=== PATIENT | male | born 1965 | race Caucasian/White ===

== ENCOUNTER 2016-07-22 00:18 | Inpatient (IN) | payer MEDICAID ==
[2016-07-22] VITALS (14 sets, daily range): BP systolic 121–165; BP diastolic 68–80; PULSE 74–96; RESP 12–20; Ht 167.6 cm; Wt 107.0 kg
[~2016-07-22] VITALS: Ht 167.6 cm; Wt 107.0 kg
--- NOTE | 2016-07-22 00:36 | ERA ---
ER Documentation Chief Complaint Date/Time DATE: 07/22/16 TIME: 00:36 Chief Complaint Chest pain HPI The patient is a 51-year-old male, presenting to the ER because of sternal chest pain intermittently for the last 5 days, worse tonight, 8/10, nonradiating , no aggravating or relieving factor. He denies similar symptoms previously, denies neck pain, chest pain with exertion or vomiting or diaphoresis, denies dyspnea, abdominal pain, vomiting, dysuria, diarrhea. He does not smoke, drinks socially, denies illicit drug. Had history of diabetes, however he does not take metformin medication for more than a year Past medical history: Diabetes mellitus Past surgical history: None ROS All systems reviewed and are negative except as per history of present illness. Allergies Allergies: Coded Allergies: No Known Allergy (Unverified , 07/22/16) Physical Exam Vitals Vital Signs Date Time Temp Pulse Resp B/P Pulse Ox O2 Delivery O2 Flow Rate FiO2 07/22/16 00:35 98.6 92 20 190/123 99 Room Air 07/22/16 00:31 98.6 86 20 205/122 99 Physical Exam Const: No acute distress. Head: Atraumatic. Eyes: Normal Conjunctiva. ENT: Normal External Ears, Nose and Mouth. Neck: Full range of motion. No meningismus. Resp: Clear to auscultation bilaterally. Cardio: Regular rate and rhythm, no murmurs. Abd: Soft, non distended, normal bowel sounds, non tender. Skin: No petechiae or rashes. Back: No midline or flank tenderness. Ext: No cyanosis, or edema. Neur: Awake and alert. No focal deficit Psych: Normal Mood and Affect. Result Diagram: 07/22/16 0050 07/22/16 0050 Results 24 hrs Laboratory Tests Test 07/22/16 00:50 07/22/16 01:17 White Blood Count 8.210^3/ul Red Blood Count 5.1210^6/ul Hemoglobin 15.9g/dl Hematocrit 45.5% Mean Corpuscular Volume 88.9fl Mean Corpuscular Hemoglobin 31.1pg Mean Corpuscular Hemoglobin Concent 34.9g/dl Red Cell Distribution Width 12.5% Platelet Count 23092^3/UL Mean Platelet Volume 9.7fl Neutrophils % 46.3% Lymphocytes % 45.5% Monocytes % 6.3% Eosinophils % 1.0% Basophils % 0.5% Nucleated Red Blood Cells % 0.0/100WBC Neutrophils # 3.810^3/ul Lymphocytes # 3.810^3/ul Monocytes # 0.510^3/ul Eosinophils # 0.110^3/ul Basophils # 0.010^3/ul Nucleated Red Blood Cells # 0.010^3/ul Prothrombin Time 11.5Sec Prothrombin Time Ratio 0.9 INR International Normalized Ratio 0.84 Activated Partial Thromboplast Time 28.8Sec Sodium Level 140mmol/L Potassium Level 4.1mmol/L Chloride Level 100mmol/L Carbon Dioxide Level 26mmol/L Anion Gap 18 Blood Urea Nitrogen 10mg/dl Creatinine 0.59mg/dl Glucose Level 302mg/dl Calcium Level 9.2mg/dl Total Bilirubin 0.3mg/dl Direct Bilirubin 0.00mg/dl Indirect Bilirubin 0.3mg/dl Aspartate Amino Transf (AST/SGOT) 45IU/L Alanine Aminotransferase (ALT/SGPT) 54IU/L Alkaline Phosphatase 161IU/L Creatine Kinase 63IU/L Creatine Kinase Index 0.9 Creatinine Kinase MB (Mass) 0.59ng/ml Troponin I 0.050ng/ml Total Protein 7.6g/dl Albumin 4.4g/dl Globulin 3.20g/dl Albumin/Globulin Ratio 1.37 Lipase 219U/L Bedside Glucose 297mg/dL Current Medications Medications (Trade) Dose Ordered Sig/Margie Route PRN Reason Start Time Stop Time Status Last Admin Dose Admin Labetalol HCl (Labetalol) 20 mg ONCE ONCE IV 07/22/16 01:00 07/22/16 01:01 DC 07/22/16 00:58 Aspirin (Aspirin) 325 mg ONCE ONCE PO 07/22/16 02:30 07/22/16 02:31 DC 07/22/16 02:27 Nitroglycerin 1 inch 1 inch ONCE ONCE TD 07/22/16 02:30 07/22/16 02:31 DC 07/22/16 02:28 Sodium Chloride (NS) 500 ml @ 500 mls/hr Q1H ONCE IV 07/22/16 02:30 07/22/16 03:29 07/22/16 02:27 Procedures/[facility] EKG: Read by emergency physician Rate/Rhythm: Normal Sinus Rhythm 82 beats/min QRS, ST, T-waves: No ST elevation, no T inversion Impression: Normal EKG [place] [id number] Radiology Main Line: [phone] DIAGNOSTIC IMAGING REPORT Patient: FREDDY ROMERO : 1965 Age: 51 Sex: M MR #: [id number] DOS: 07/22/16 0042 Ordering MD: TUCKER COREAS MD Location: E/R Room/Bed: PROCEDURE: XR Chest. CLINICAL INDICATION: Chest pain. TECHNIQUE: Single frontal chest x-ray. COMPARISON: None. FINDINGS: The cardiomediastinal silhouette is unremarkable. Small focus of patchy left basilar atelectasis versus infiltrate. There is no pleural effusion. There is no pneumothorax. The osseous structures are unremarkable. IMPRESSION: Left basilar atelectasis versus infiltrate. RPTAT: [facility]K .Tucker Flores MD, MD Date Time Electronically viewed and signed by .Tucker Flores MD, MD on 07/22/2016 01:49 .K/ CC: TUCKER COREAS MD MEDICAL MAKING DECISION: The patient is a 51-year-old male with multiple cardiac risk factors, presenting with acute chest pain that is concerning for ACS, acute diabetic hyperglycemia, acute excellent hypertension. He was treated with labetalol 20 mg IV for acute accelerated hypertension, aspirin 325 mg p.o., 1 inch of nitroglycerin for acute chest pain and 500 mm normal saline for acute diabetic hyperglycemia with good response. The differential diagnoses considered include but are not limited to acute coronary syndrome, acute myocardial infarction, pericarditis, pulmonary embolism, aortic dissection , pneumonia, pleural effusion, pneumothorax, GERD, chest wall pain. Departure Diagnosis: Primary Impression: Acute chest pain Additional Impressions: Accelerated hypertension Diabetes mellitus with hyperglycemia Condition: Stable Comments I discussed the findings with the patient. I discussed the patient with the on- call hospitalist Dr. Ocampo who was made aware of the lab, the treatment, the patient condition. The patient is admitted to telemetry TUCKER COREAS MD Jul 22, 2016 00:36
[2016-07-22] MEDS ORDERED: LABETALOL HCL 20MG INJ IV ONE (01:00)
[2016-07-22 01:25] LABS: ADD SCAN DIFF NO
[2016-07-22 01:30] LABS: BASOPHILS % 0.5 % (0.0-2.0); EOSINOPHILS # 0.1 10^3/ul (0.0-0.5); HEMATOCRIT 45.5 % (42.0-52.0); HEMOGLOBIN 15.9 g/dl (14.0-18.0); LYMPHOCYTES # 3.8 10^3/ul (0.8-2.9); LYMPHOCYTES % 45.5 % (15.0-51.0); MEAN CORPUSCULAR HEMOGLOBIN 31.1 pg (29.0-33.0); MEAN CORPUSCULAR HGB CONC 34.9 g/dl (32.0-37.0); MEAN CORPUSCULAR VOLUME 88.9 fl (82.0-101.0); MEAN PLATELET VOLUME 9.7 fl (7.4-10.4); MONOCYTE # 0.5 10^3/ul (0.3-0.9); MONOCYTES % 6.3 % (0.0-11.0); NEUTROPHIL # 3.8 10^3/ul (1.6-7.5); NEUTROPHILS % 46.3 % (39.0-77.0); PLATELET COUNT 192 10^3/UL (140-415); RED BLOOD COUNT 5.12 10^6/ul (4.70-6.10); RED CELL DISTRIBUTION WIDTH 12.5 % (11.5-14.5); WHITE BLOOD COUNT 8.2 10^3/ul (4.8-10.8)
[2016-07-22 01:44] LABS: ALBUMIN 4.4 g/dl (3.3-4.9)
[2016-07-22 01:45] LABS: POTASSIUM 4.1 mmol/L (3.5-5.1)
[2016-07-22 01:46] LABS: INR 0.84; PROTIME 11.5 Sec (12.2-14.2); PT RATIO 0.9
[2016-07-22 01:47] LABS: ALBUMIN/GLOBULIN RATIO 1.37; BILIRUBIN,INDIRECT 0.3 mg/dl (0-1.1); BILIRUBIN,TOTAL 0.3 mg/dl (0.2-1.3); CREATININE 0.59 mg/dl (0.61-1.24); PARTIAL THROMBOPLASTIN TIME 28.8 Sec (25.0-35.0); TOTAL PROTEIN 7.6 g/dl (6.1-8.1)
[2016-07-22 01:48] LABS: CALCIUM 9.2 mg/dl (8.4-10.2)
--- NOTE | 2016-07-22 01:50 | RADRPT ---
PROCEDURE: XR Chest. CLINICAL INDICATION: Chest pain. TECHNIQUE: Single frontal chest x-ray. COMPARISON: None. FINDINGS: The cardiomediastinal silhouette is unremarkable. Small focus of patchy left basilar atelectasis [place] infiltrate. There is no pleural effusion. There is no pneumothorax. The osseous structures ar e unremarkable. IMPRESSION: Left basilar atelectasis versus infiltrate. RPTAT: [facility]VK .Tucker Flores MD, MD Date Time Electronically viewed and signed by .Tucker Flores MD, on 07/22/2016 01:49 .K/
[2016-07-22 01:58] LABS: CK-MB 0.59 ng/ml (0.0-2.4)
[2016-07-22 01:59] LABS: TROPONIN-I 0.056 ng/ml (0.00-0.12)
[2016-07-22 02:01] LABS: TROPONIN-I 0.05 ng/ml (0.00-0.12)
[2016-07-22] MEDS ORDERED: ASPIRIN 325 MG TAB PO ONE (02:30)
[2016-07-22] MEDS ORDERED: NITROGLYCERIN 2% 1 GM OINT PKT TD ONE (02:30)
[2016-07-22] MEDS ORDERED: SOD CHLORIDE 0.9% 500 ML IV ONE (02:30)
--- NOTE | 2016-07-22 03:52 | HP ---
Date/Time of Note Date/Time of Note DATE: 07/22/16 TIME: 03:52 Assessment/Plan VTE Prophylaxis VTE Prophylaxis Intervention: other (Lovenox) Lines/Catheters IV Catheter Type (from Nrsg): Saline Lock Assessment/Plan Assessment/Plan 1) Acute chest pain - Admit to Telemetry - Serial Enzymes - EKG in AM - AM Labs: Magnesium 2) Accelerated hypertension - AM Labs: CHD Profile 3) Diabetes mellitus Type 2, uncontrolled with hyperglycemia - AM Labs: HgbA1c - AccuChek Ac and HS with Regular Insulin - Mild Sliding Scale 4) Obesity, BMI = 39 - AM Labs: TSH HPI/ROS Admit Date/Time Admit Date/Time 07/22/16 0305 Hx of Present Illness Chief Complaint Chest pain HPI The patient is a 51-year-old male, presenting to the ER because of sternal chest pain intermittently for the last 5 days, worse tonight, 8/10, nonradiating , no aggravating or relieving factor. He denies similar symptoms previously, denies neck pain, chest pain with exertion or vomiting or diaphoresis, denies dyspnea, abdominal pain, vomiting, dysuria, diarrhea. He does not smoke, drinks socially, denies illicit drug. Had history of diabetes, however he does not take metformin medication for more than a year ER Course per ER Physician: The patient is a 51-year-old male with multiple cardiac risk factors, presenting with acute chest pain that is concerning for ACS, acute diabetic hyperglycemia, acute excellent hypertension. He was treated with labetalol 20 mg IV for acute accelerated hypertension, aspirin 325 mg p.o., 1 inch of nitroglycerin for acute chest pain and 500 mm normal saline for acute diabetic hyperglycemia with good response. The differential diagnoses considered include but are not limited to acute coronary syndrome, acute myocardial infarction, pericarditis, pulmonary embolism, aortic dissection , pneumonia, pleural effusion, pneumothorax, GERD, chest wall pain. ROS General: Admits: Denies: Fever, Chills, Poor Appetite, Abnormal Weight Loss, Generalized Body Aches Eyes: Admits: Denies: Blurry Vision, Double Vision, Yellow Eyes HENT: Admits: Denies: Sinus Pain/Pressure, Ear Pain/Pressure, Runny/Stuffy Nose, Sore Throat Cardiovascular: Admits: Chest Pain Denies: Palpitations, Leg Swelling Pulmonary: Admits: Denies: Cough, Wheeze, Shortness of Breath Gastrointestinal: Admits: Denies: Abdominal Pain, Nausea, Vomiting, Diarrhea, Blood in Stool, Black-Colored Stool Urogenital: Admits: Denies: Burning with Urination, Urinary Frequency, Blood in Urine, Nocturia Musculoskeletal: Admits: Denies: Joint Pain, Joint Swelling, Muscle Pain Neurological: Admits: Denies: Headache, Dizziness, Numbness, Tingling, Shooting Pains Integumentary: Admits: Denies: Rash, Itch, Yellow Skin Endocrine: Admits: Denies: Excessive Thirst, Excessive Hunger, Intolerant to Cold , Intolerant to Heat Psychiatric: Admits: Denies: Anxiety, Depression PMH/Family/Social Past Medical History Medical History: diabetes Past Surgical History Past Surgical Hx: no surgical history Social History Alcohol Use: occasionally Smoking Status: Never smoker Drug Use: none Exam/Review of Systems Vital Signs Vitals Vital Signs Date Time Temp Pulse Resp B/P Pulse Ox O2 Delivery O2 Flow Rate FiO2 07/22/16 00:35 98.6 92 20 190/123 99 Room Air Exam Exam General: Obese male, alert and oriented, in no acute distress, resting comfortably Eyes: Sclera White, EOMI HENT: Normocephalic/Atraumatic, External Ears/Nose Normal, Moist Mucus Membranes Neck: Supple, Trachea Midline Cardiovascular: Normal Rate, Normal Rhythm, Normal S1 and S2, No Murmur, No Extra Sounds Pulmonary: Clear to Auscultation Bilaterally, Normal Respiratory Effort, No Rales, Rhonchi or Wheezes Gastrointestinal: Normoactive Bowel Sounds, Soft, Non-Tender/Non-Distended Urogenital: Deferred Musculoskeletal: Normal Muscle Bulk and Tone Neurological: CN II - XII Grossly Intact, Non-Focal, Speech Normal Integumentary: Normal Moisture and Temperature, Good Turgor, No Jaundice, No Rash Lymphatic: No Cervical Lymphadenopathy Psychiatric: Appropriate Mood and Affect, Good Eye Contact Labs Result Diagram: 07/22/16 0050 07/22/16 0050 Procedures Procedures Laboratory Tests Test 07/22/16 00:50 07/22/16 01:17 White Blood Count 8.210^3/ul Red Blood Count 5.1210^6/ul Hemoglobin 15.9g/dl Hematocrit 45.5% Mean Corpuscular Volume 88.9fl Mean Corpuscular Hemoglobin 31.1pg Mean Corpuscular Hemoglobin Concent 34.9g/dl Red Cell Distribution Width 12.5% Platelet Count 77015^3/UL Mean Platelet Volume 9.7fl Neutrophils % 46.3% Lymphocytes % 45.5% Monocytes % 6.3% Eosinophils % 1.0% Basophils % 0.5% Nucleated Red Blood Cells % 0.0/100WBC Neutrophils # 3.810^3/ul Lymphocytes # 3.810^3/ul Monocytes # 0.510^3/ul Eosinophils # 0.110^3/ul Basophils # 0.010^3/ul Nucleated Red Blood Cells # 0.010^3/ul Prothrombin Time 11.5Sec Prothrombin Time Ratio 0.9 INR International Normalized Ratio 0.84 Activated Partial Thromboplast Time 28.8Sec Sodium Level 140mmol/L Potassium Level 4.1mmol/L Chloride Level 100mmol/L Carbon Dioxide Level 26mmol/L Anion Gap 18 Blood Urea Nitrogen 10mg/dl Creatinine 0.59mg/dl Glucose Level 302mg/dl Calcium Level 9.2mg/dl Total Bilirubin 0.3mg/dl Direct Bilirubin 0.00mg/dl Indirect Bilirubin 0.3mg/dl Aspartate Amino Transf (AST/SGOT) 45IU/L Alanine Aminotransferase (ALT/SGPT) 54IU/L Alkaline Phosphatase 161IU/L Creatine Kinase 63IU/L Creatine Kinase Index 0.9 Creatinine Kinase MB (Mass) 0.59ng/ml Troponin I 0.050ng/ml Total Protein 7.6g/dl Albumin 4.4g/dl Globulin 3.20g/dl Albumin/Globulin Ratio 1.37 Lipase 219U/L Bedside Glucose 297mg/dL Current Medications Medications (Trade) Dose Ordered Sig/Margie Route PRN Reason Start Time Stop Time Status Last Admin Dose Admin Labetalol HCl (Labetalol) 20 mg ONCE ONCE IV 07/22/16 01:00 07/22/16 01:01 DC 07/22/16 00:58 Aspirin (Aspirin) 325 mg ONCE ONCE PO 07/22/16 02:30 07/22/16 02:31 DC 07/22/16 02:27 Nitroglycerin 1 inch 1 inch ONCE ONCE TD 07/22/16 02:30 07/22/16 02:31 DC 07/22/16 02:28 Sodium Chloride (NS) 500 ml @ 500 mls/hr Q1H ONCE IV 07/22/16 02:30 07/22/16 03:29 07/22/16 02:27 EKG: Read by emergency physician Rate/Rhythm: Normal Sinus Rhythm 82 beats/min QRS, ST, T-waves No ST elevation, no T inversion Impression: Normal EKG RADIOLOGY: PROCEDURE: XR Chest. CLINICAL INDICATION: Chest pain. TECHNIQUE: Single frontal chest x-ray. COMPARISON: None. FINDINGS: The cardiomediastinal silhouette is unremarkable. Small focus of patchy left basilar atelectasis versus infiltrate. There is no pleural effusion. There is no pneumothorax. The osseous structures are unremarkable. IMPRESSION: Left basilar atelectasis versus infiltrate. LJ DOMINGUEZ DO Jul 22, 2016 03:52
[2016-07-22] MEDS ORDERED: NITROGLYCERIN (SL) 0.4 MG TAB SL PRN (04:00)
[2016-07-22] MEDS ORDERED: INSULIN REGULAR, HUMAN 100 UNIT/1 ML 3ML VIAL SC ONE (04:00)
[2016-07-22] MEDS ORDERED: METOCLOPRAMIDE 10 MG INJ IV PRN (04:00)
[2016-07-22] MEDS ORDERED: NACL 0.9% 3 ML SYG IV SCH (04:00)
[2016-07-22] MEDS ORDERED: Insulin NOVOLOG SS MILD Algorithm (NPO/TPN/ENTERAL FEEDS) SC ONE (04:40)
[2016-07-22 05:50] LABS: MAGNESIUM 1.6 mg/dl (1.7-2.5)
[2016-07-22 06:21] LABS: THYROID STIMULATING HORMONE 2.33 MIU/L (0.465-4.680)
[2016-07-22 06:59] LABS: CK-MB 0.76 ng/ml (0.0-2.4)
[2016-07-22 07:00] LABS: TROPONIN-I 0.127 ng/ml (0.00-0.12)
[2016-07-22] MEDS ORDERED: ENOXAPARIN 40 MG/0.4 ML SYG SC SCH (09:00)
[2016-07-22] MEDS: FAMOTIDINE 20 MG TAB PO SCH ×2 (09:00→21:43)
[2016-07-22] MEDS ORDERED: hydrALAzine 20 MG INJ IV PRN (10:00)
[2016-07-22] MEDS ORDERED: MIDAZOLAM 1 MG/ML 2 ML INJ ONE (10:04)
[2016-07-22] MEDS ORDERED: FENTAnyl 50 MCG/ML VIAL ONE (10:04)
[2016-07-22] MEDS ORDERED: VERAPAMIL 5 MG INJ ONE (10:04)
[2016-07-22] MEDS ORDERED: LIDOCAINE 1% (MDV) 20 ML INJ ONE (10:04)
[2016-07-22] MEDS ORDERED: NITROGLYCERIN (IC) 100 MCG/ML INJ ONE (10:04)
[2016-07-22] MEDS ORDERED: HEPARIN 1000 UNITS/ML 10 ML INJ ONE (10:04)
[2016-07-22 10:26] LABS: TROPONIN-I 0.113 ng/ml (0.00-0.12)
[2016-07-22 10:30] LABS: CK-MB 0.84 ng/ml (0.0-2.4)
--- NOTE | 2016-07-22 10:36 | CONS ---
Date/Time of Note Date/Time of Note DATE: 07/22/16 TIME: 10:33 Assessment/Plan Assessment/Plan Additional Assessment/Plan Chest pain and elevated troponin concerning for non-ST elevation ID Diabetes Hypertension Dyslipidemia Medication noncompliance -Patient with symptoms of worsening exertional chest pain, multiple risk factors , abnormal ECG and elevated troponin. Would proceed with cardiac catheterization. Continue aspirin and statin therapy, beta-andrew as heart rate and blood pressure permits. Check echocardiogram. Consultation Date/Type/Reason Admit Date/Time 07/22/16 0305 Type of Consultation: cv Reason for Consultation Chest pain and elevated troponin Hx of Present Illness This is a 51-year-old male with past medical history of diabetes, hypertension, dyslipidemia noncompliant with medications who presents with off-and-on chest pain over the past month, worsening over the past few days. Symptoms are worse with exertion and improved with rest. There is sometimes associated shortness of breath. He also has been having elevated blood pressures have not been well controlled. He denies fevers and chills, dizziness or lightheadedness. He feels better since admission and receiving medications in the emergency room. 12 point review of systems was performed with all pertinent positives and negatives mentioned above and all else is negative Past Medical History Medical History: diabetes, high cholesterol, hypertension Past Surgical History Past Surgical Hx: no surgical history Family History Significant Family History: no pertinent family hx Social History Alcohol Use: occasionally Smoking Status: Never smoker Drug Use: none Other Social History Works in [employer] Exam/Review of Systems Vital Signs Vitals Vital Signs Date Time Temp Pulse Resp B/P Pulse Ox O2 Delivery O2 Flow Rate FiO2 07/22/16 09:09 77 18 125/75 99 Nasal Cannula 2.0 07/22/16 05:00 98.6 Exam No apparent distress Constitutional: alert, obese, oriented Head: normocephalic Neck: supple Respiratory: clear to auscultation, normal air movement Cardiovascular: other (S1-S2 heard, no murmurs appreciate), regular rate and rhythm Gastrointestinal: bowel sounds, non-tender, other (No guarding), soft Extremities: other (No edema or cyanosis) Results Result Diagram: 07/22/16 0050 07/22/16 0050 Results 24 hrs Laboratory Tests Test 07/22/16 00:50 07/22/16 01:17 07/22/16 04:50 07/22/16 05:10 White Blood Count 8.2 Red Blood Count 5.12 Hemoglobin 15.9 Hematocrit 45.5 Mean Corpuscular Volume 88.9 Mean Corpuscular Hemoglobin 31.1 Mean Corpuscular Hemoglobin Concent 34.9 Red Cell Distribution Width 12.5 Platelet Count 192 Mean Platelet Volume 9.7 Neutrophils % 46.3 Lymphocytes % 45.5 Monocytes % 6.3 Eosinophils % 1.0 Basophils % 0.5 Nucleated Red Blood Cells % 0.0 Neutrophils # 3.8 Lymphocytes # 3.8 H Monocytes # 0.5 Eosinophils # 0.1 Basophils # 0.0 Nucleated Red Blood Cells # 0.0 Prothrombin Time 11.5 L Prothrombin Time Ratio 0.9 INR International Normalized Ratio 0.84 Activated Partial Thromboplast Time 28.8 Sodium Level 140 Potassium Level 4.1 Chloride Level 100 Carbon Dioxide Level 26 Anion Gap 18 H Blood Urea Nitrogen 10 Creatinine 0.59 L Glucose Level 302 H Calcium Level 9.2 Total Bilirubin 0.3 Direct Bilirubin 0.00 Indirect Bilirubin 0.3 Aspartate Amino Transf (AST/SGOT) 45 Alanine Aminotransferase (ALT/SGPT) 54 Alkaline Phosphatase 161 H Creatine Kinase 63 54 Creatine Kinase Index 0.9 1.4 Creatinine Kinase MB (Mass) 0.59 0.76 Troponin I 0.050 0.127 *H Total Protein 7.6 Albumin 4.4 Globulin 3.20 Albumin/Globulin Ratio 1.37 Lipase 219 Bedside Glucose 297 H 291 H Hemoglobin A1c 10.3 H Magnesium Level 1.6 L Thyroid Stimulating Hormone (TSH) 2.330 Test 07/22/16 09:35 Creatine Kinase 51 Creatine Kinase Index 1.6 Creatinine Kinase MB (Mass) 0.84 Troponin I 0.113 Medications Medications Current Medications Metoclopramide HCl (Reglan) 10 mg Q6H PRN IV NAUSEA AND/OR VOMITING; Start at 04:00 Nitroglycerin (Nitroglycerin (Sl Tab) 0.4 Mg) 1 tab Q5M PRN SL CHEST PAIN; Start 07/22/16 at 04:00 Acetaminophen (Tylenol Tab) 650 mg Q6H PRN PO PAIN LEVEL 1-3 OR FEVER; Start at 04:00 Morphine Sulfate (morphine) 2 mg Q4H PRN IV PAIN LEVEL 7-10; Start 07/22/16 at 04:00 Famotidine (Pepcid) 20 mg Q12 PO Last administered on 07/22/16 09:00; Admin Dose 20 MG; Start 07/22/16 at 09:00 Enoxaparin Sodium (Lovenox) 40 mg DAILY SC Last administered on 07/22/16 09:00 ; Admin Dose 40 MG; Start 07/22/16 at 09:00 Insulin Glargine (Lantus) 22 unit DAILY@08 SC ; Start 07/22/16 at 09:30; Status UNV Miscellaneous Information (* Miscellaneous Pharmacy Order) HYPOGLYCEMIA PROTOCOL w... ONCE ONCE XX ; Start 07/22/16 at 09:30; Stop 07/22/16 at 09:31; Status UNV Miscellaneous Information (* Miscellaneous Pharmacy Order) Discontinue Glyburide , Glipizide,... ONCE ONCE XX ; Start 07/22/16 at 09:30; Stop 07/22/16 at 09:31 ; Status UNV Miscellaneous Information (* Miscellaneous Pharmacy Order) Discontinue all previ... ONCE ONCE XX ; Start 07/22/16 at 09:30; Stop 07/22/16 at 09:31; Status UNV Aspirin (Halfprin) 81 mg DAILY PO ; Start 07/23/16 at 09:00; Status UNV Metoprolol Tartrate (Lopressor) 25 mg BID PO ; Start 07/22/16 at 21:00; Status UNV Hydralazine HCl (Apresoline) 10 mg Q6H PRN IV SBP>160; Start 07/22/16 at 10:00 ; Status UNV Procedures Procedures Sinus rhythm, inferior T-wave abnormalities, normal QRS duration Tucker Fuller DO Jul 22, 2016 10:36
[2016-07-22] MEDS ORDERED: GLUCOSE GEL 15 GRAM TUBE BUCCAL PRN (11:00)
[2016-07-22] MEDS ORDERED: GLUCOSE GEL 15 GRAM TUBE PO PRN ×2 (11:00)
[2016-07-22] MEDS ORDERED: DEXTROSE 50% 50 ML SYRINGE IV PRN ×2 (11:00)
[2016-07-22] MEDS ORDERED: GLUCAGON 1 MG INJ IM PRN (11:00)
[2016-07-22] MEDS ORDERED: SOD CHLORIDE 0.9% 1,000 ML IV SCH (11:29)
[2016-07-22] MEDS ORDERED: ONDANSETRON 4 MG INJ IV PRN (11:30)
[2016-07-22] MEDS ORDERED: AL HYDROX/MG HYDROX/SIMETH 30 ML CUP PO PRN (11:30)
--- NOTE | 2016-07-22 12:03 | CARRPT ---
DATE OF PROCEDURE: 07/22/2016 PROCEDURES: 1. Left heart catheterization. 2. Right and left coronary angiogram. 3. Interpretation and supervision of right and left coronary angiogram. 4. Left ventricular pressure measurements. 5. Right radial artery approach. PATIENT HISTORY: This is a 51-year-old male who presents with elevated troponins and chest pain and abnormal ECG. FINDINGS: HEMODYNAMICS: LV pressure was 155/negative, total EDP of 20. Aortic was 142/88. CORONARY FINDINGS: 1. RCA is a medium-caliber vessel and is dominant. There is a proximal 100% occlusion. The distal vessel is seen via collaterals from the circumflex and LAD with at least a medium-caliber vessel with a patent PDA and PLB. 2. Left main is a large-caliber vessel with no significant disease. 3. Circumflex is a medium caliber vessel. There is a distal 30% stenosis. 4. LAD is a medium-caliber vessel. There is a proximal to the first high diagonal 80 to 90% eccentric stenosis into a bend. In the mid vessel, there is a 30% stenosis. DESCRIPTION OF PROCEDURE: The patient was brought to the senior cytogenetics laboratory director after informed consent. The patient was prepped and draped as per protocol. Right radial access was obtained using ultrasound guidance. A 5/6-Martiniquais sheath was placed in the right radial artery. A 5-Martiniquais JR4 catheter was used to engage the RCA. Angiogram was performed. This demonstrated a FIRE TOWER KEEPER. We next entered the left ventricle. Pressure measurements were obtained as well as pullback. We next used a 5-Martiniquais JL3.5 diagnostic catheter to engage the left main. Angiogram was performed. The patient with severe proximal LAD disease as well FIRE TOWER KEEPER of the RCA. Given the patient's history of diabetes, a FIRE TOWER KEEPER of the RCA as well as proximal LAD disease, the patient would be best served with surgical revascularization. All catheters and wires were removed. There were no immediate complications. DIAGNOSES: 1. Non-ST elevation myocardial infarction. 2. Obstructive coronary artery disease. COMPLICATIONS: None. BLOOD LOSS: Minimal. RECOMMENDATIONS: CT surgery for evaluation for CABG. Dictated By: BEVERLY OCAMPO/YUDY Conf#: [id number] DID#: [id number] [facility]ES HOSPITALLeonel
--- NOTE | 2016-07-22 12:52 | RADRPT ---
Echocardiogram Report Patient Name: FREDDY ROMERO Gender: Male Date: 1965 Study Date: 22-Jul-2016 Transit Specialist: Moses Griffiths RDCS Location: 6 Ref. Physician: NADGEE SPENCER Quality: Good Procedures: Transthoracic echocardiogram with complete 2D, M-Mode, and doppler examination. Indications: Chest Pain. 2D/M Mode Doppler Measurement Value Normal Ranges Measurement Value Normal Ranges LVIDd 2D 5.0 3.5 - 5.6 cm AV Peak Ivan 1.1 m/sec LVIDs 2D 3.3 2.1 - 4.1 cm AV Peak PG 4.9 mmHg LVPWd 2D 1.2 0.6 - 1.1 cm LVOT Peak Ivan 1.0 m/sec IVSd 2D 1.1 0.6 - 1.1 cm LVOT Peak PG 4.1 mmHg AoR Diam 2D 2.8 2.0 - 3.7 cm MV E Peak Ivan 0.6 m/sec EDV 2D 120.5 cm3 MV A Peak Ivan 1.0 m/sec ESV 2D 35.9 cm3 MV E/A 0.6 LA Dimen 2D 4.3 2.3 - 4.0 cm MV Decel Time 140 msec MV Decel [place] 5 MV E/A 0.6 Findings Left Ventricle: Normal left ventricular systolic function. Normal left ventricular cavity size. Mild concentric left ventricular hypertrophy. Ejection fraction is visually estimated at 55 %. Tissue Doppler/Mitral Doppler indices are consistent with impaired relaxation (Stage I diastolic dysfunction). These segments of the LV are hypokinetic inferior mid segment and inferior base segment. Right Ventricle: Normal right ventricular size. Normal right ventricular systolic function. Left Atrium: There is mild enlargement of left atrium. Right Atrium: The right atrium is normal in size. Mitral Valve: Mitral valve leaflets appear mildly thickened. Mild mitral annular calcification. Trace mitral regurgitation. Aortic Valve: Normal appearance of the aortic valve. No significant aortic stenosis or insufficiency. Tricuspid Valve: Normal appearance and function of the tricuspid valve with trace physiologic regurgitation. Pulmonic Valve: Normal pulmonic valve appearance. Pericardium: Normal pericardium with no significant pericardial effusion. Aorta: Normal aortic root. IVC: Normal size and normal respiratory collapse consistent with normal right atrial pressure. Conclusions 1.Normal left ventricular systolic function. Normal left ventricular cavity size. Mild concentric left ventricular hypertrophy. Ejection fraction is visually estimated at 55 %. Tissue Doppler/Mitral Doppler indices are consistent with impaired relaxation (Stage I diastolic dysfunction). These segments of the LV are hypokinetic inferior mid segment and inferior base segment. 2.Normal right ventricular size. Normal right ventricular systolic function. 3.There is mild enlargement of left atrium. 4.The right atrium is normal in size. 5.No significant valvular stenosis or regurgitation seen. 6.Normal pericardium with no significant pericardial effusion. Electronically Signed By: Tucker Fuller 22-Jul-2016 12:51:07 -0700 Patient Name: FREDDY ROMERO Study Date: 22-Jul-2016 [id number]
--- NOTE | 2016-07-22 12:53 | RADRPT ---
PROCEDURE: US Carotids. CLINICAL INDICATION: bruit , pre-cabg TECHNIQUE: Multiple sonographic of the carotid bifurcation region and vertebral arteries were obta ined utilizing floyd scale, duplex and color-flow imaging. The images were reviewed on a PACS worksta tion. COMPARISON: No prior studies are available for comparison. FINDINGS: Evaluation of the right carotid bifurcation region reveals no significant calcific atherosclerotic d isease. Evaluation of the left carotid bifurcation region reveals no significant calcific atherosclerotic di sease. There is antegrade flow within the vertebral arteries bilaterally. RIGHT CAROTID MEASUREMENTS: Common Carotid Upvqnh78.4 (cm/sec) Internal Carotid Artery - .4 (cm/sec) Internal Carotid Artery - mid58.1 (cm/sec) Internal Carotid Artery - ouifls75.8 (cm/sec) Internal Carotid/Common Carotid0.75 LEFT CAROTID MEASUREMENTS: Common Carotid Pryjqa02.6 (cm/sec) Internal Carotid Artery - kgdmerqi14 (cm/sec) Internal Carotid Artery - mid88.5 (cm/sec) Internal Carotid Artery - aakwly08.2 (cm/sec) Internal Carotid/Common Carotid1.06 RPTAT: AA IMPRESSION: No evidence for hemodynamically significant stenosis in the bilateral internal carotid arteries - va lidated velocity measurements with angiographic measurements, velocity criteria are extrapolated fro m diameter data as defined by the Society of Radiologists in Ultrasound Consensus Conference Radiolo gy 2003; 229;340-346. This study does indirectly reference the measurement of the distal ICA diamet er as the denominator for stenosis measurement. Normal antegrade flow in the vertebral arteries bilaterally. .Amado Silver MD, MD Date Time Electronically viewed and signed by .Amado Silver MD, on 07/22/2016 12:53 .S/
[2016-07-22] MEDS: INSULIN ASPART [NOVOLOG] 3 ML PEN SC SCH ×5 (12:56→21:52)
[2016-07-22] MEDS: INSULIN GLARGINE [LANtus] 3 ML PEN SC SCH (13:16)
[2016-07-22 16:31] LABS: TROPONIN-I 0.107 ng/ml (0.00-0.12)
[2016-07-22 16:33] LABS: CK-MB 0.62 ng/ml (0.0-2.4)
[2016-07-22 17:31] LABS: BENZODIAZEPINES Positive (NEGATIVE)
[2016-07-22 17:36] LABS: BARBITURATES Negative (NEGATIVE); CANNABINOIDS Negative (NEGATIVE); COCAINE Negative (NEGATIVE); OPIATES Negative (NEGATIVE)
[2016-07-22] MEDS ORDERED: INFLUENZA VIRUS VACCINE 0.5 ML SYG IM* ONE (20:00)
[2016-07-22 20:10] LABS: CK-MB 1.51 ng/ml (0.0-2.4)
[2016-07-22 20:11] LABS: TROPONIN-I 0.351 ng/ml (0.00-0.12)
[2016-07-22] MEDS ORDERED: ENOXAPARIN 100 MG/ML SYG SC SCH (21:00)
[2016-07-22] MEDS ORDERED: METOPROLOL 25 MG TAB PO SCH (21:00)
[2016-07-22] MEDS: ATORVASTATIN 80 MG TAB PO SCH (21:42)
[2016-07-22] MEDS: ENOXAPARIN 30 MG/0.3 ML SYG SC SCH (21:52)
[2016-07-22] MEDS: ENOXAPARIN 80 MG/0.8 ML SYG SC SCH (21:53)
[2016-07-23] VITALS (11 sets, daily range): BP systolic 125–141; BP diastolic 74–92; PULSE 77–87; RESP 20
[2016-07-23] MEDS: ACETAMINOPHEN 325 MG TAB PO PRN (02:12)
--- NOTE | 2016-07-23 06:22 | CONS ---
DATE OF ADMISSION: 07/22/2016 DATE OF CONSULTATION: REASON FOR CONSULTATION: Evaluation for coronary artery bypass grafting. Thank you, Dr. Fuller, for asking me to see this patient. HISTORY OF PRESENT ILLNESS: This is a 51-year-old male with a history of obesity, diabetes, and hyp ertension. The patient was admitted today because of chest pain and elevation of troponins, and und erwent a coronary angiogram which was positive for 2-vessel coronary artery disease involving the LA D and right coronary artery. PAST MEDICAL HISTORY: Hypertension, diabetes, hyperlipidemia, obesity, a BMI of 39. ALLERGIES: NONE. SOCIAL HISTORY: No smoking, drinking or drug use. MEDICATIONS: List reviewed. PHYSICAL EXAMINATION: VITAL SIGNS: Blood pressure is 165/80, pulse is 95, respirations 20, saturations 92% on room air. HEENT: Normocephalic, atraumatic. PERRLA. NECK: Supple. No JVD, no carotid bruits. CARDIOVASCULAR: Normal S1, S2. LUNGS: Clear. ABDOMEN: Soft. EXTREMITIES: Warm. IMPRESSION: Coronary artery disease. RECOMMENDATIONS: Will proceed with coronary artery bypass grafting. The patient had asked if he ca n go home and come back for his surgery. I will discuss with the referring physicians. Dictated By: MILAN GALO/YUDY Conf#: [id number] DID#: [id number]
[2016-07-23 08:33] LABS: ADD SCAN DIFF NO
[2016-07-23 08:47] LABS: BASOPHILS % 0.4 % (0.0-2.0); EOSINOPHILS # 0.1 10^3/ul (0.0-0.5); EOSINOPHILS % 0.8 % (0.0-7.0); HEMATOCRIT 42.7 % (42.0-52.0); HEMOGLOBIN 14.8 g/dl (14.0-18.0); LYMPHOCYTES # 2.3 10^3/ul (0.8-2.9); LYMPHOCYTES % 27.8 % (15.0-51.0); MEAN CORPUSCULAR HGB CONC 34.7 g/dl (32.0-37.0); MEAN CORPUSCULAR VOLUME 89.3 fl (82.0-101.0); MONOCYTE # 0.7 10^3/ul (0.3-0.9); MONOCYTES % 8.7 % (0.0-11.0); NEUTROPHIL # 5.1 10^3/ul (1.6-7.5); NEUTROPHILS % 61.9 % (39.0-77.0); PLATELET COUNT 190 10^3/UL (140-415); RED BLOOD COUNT 4.78 10^6/ul (4.70-6.10); RED CELL DISTRIBUTION WIDTH 12.8 % (11.5-14.5); WHITE BLOOD COUNT 8.3 10^3/ul (4.8-10.8)
[2016-07-23] MEDS: ASPIRIN (EC) 81 MG TAB PO SCH (08:59)
[2016-07-23] MEDS: CHOLECALCIFEROL 1,000 UNIT TAB PO SCH (08:59)
[2016-07-23 09:03] LABS: CHOL/HDL RATIO 6.1 RATIO; MAGNESIUM 1.6 mg/dl (1.7-2.5); PHOSPHORUS 4.1 mg/dl (2.5-4.9)
[2016-07-23] MEDS: INSULIN GLARGINE [LANtus] 3 ML PEN SC SCH (09:03)
[2016-07-23] MEDS: INSULIN ASPART [NOVOLOG] 3 ML PEN SC SCH ×7 (09:04→20:33)
[2016-07-23] MEDS: ENOXAPARIN 80 MG/0.8 ML SYG SC SCH ×2 (09:05→20:30)
[2016-07-23] MEDS: ENOXAPARIN 30 MG/0.3 ML SYG SC SCH ×2 (09:05→20:29)
[2016-07-23] MEDS: FAMOTIDINE 20 MG TAB PO SCH ×2 (09:06→20:27)
[2016-07-23 09:12] LABS: CK-MB 2.09 ng/ml (0.0-2.4)
[2016-07-23 09:26] LABS: POTASSIUM 4.1 mmol/L (3.5-5.1)
[2016-07-23 09:29] LABS: CREATININE 0.54 mg/dl (0.61-1.24)
[2016-07-23 09:36] LABS: TROPONIN-I 0.972 ng/ml (0.00-0.12)
[2016-07-23] MEDS ORDERED: MAGNESIUM SULFATE 2 GM/50 ML 50 ML IVPB ONE (11:00)
--- NOTE | 2016-07-23 11:05 | PN ---
Date/Time of Note Date/Time of Note DATE: 07/23/16 TIME: 11:03 Assessment/Plan VTE Prophylaxis VTE Prophylaxis Intervention: SCD's Lines/Catheters [facility] ([facility] Peripheral IV Urinary Cath still in place: No Assessment/Plan Assessment/Plan NSTEMI S/P CATH 2V CAD Diabetes Hypertension Dyslipidemia Medication noncompliance -PATIENT AGREEABLE FOR CABG -CTS INVOLVLED -CONTINUE CV MEDS Subjective 24 Hr Interval Summary Free Text/Dictation The patient with no chest pain and agreeable to proceed with cabg Exam/Review of Systems Vital Signs Vitals Vital Signs Date Time Temp Pulse Resp B/P Pulse Ox O2 Delivery O2 Flow Rate FiO2 07/23/16 08:12 97.6 71 20 135/87 96 07/22/16 17:00 Room Air 07/22/16 10:40 2.0 Intake and Output 07/22/16 07/22/16 07/23/16 15:00 23:00 07:00 Intake Total 200 ml 1000 ml Balance 200 ml 1000 ml Results Result Diagram: 07/23/1624 07/23/16 0720 Results 24 hrs Laboratory Tests Test 07/22/16 12:18 07/22/16 15:30 07/22/16 16:49 07/22/16 16:50 Bedside Glucose 255 H 271 H Creatine Kinase 52 Creatine Kinase Index 1.2 Creatinine Kinase MB (Mass) 0.62 Troponin I 0.107 Urine Opiates Screen Negative Urine Barbiturates Negative Urine Amphetamines Screen Negative Urine Benzodiazepines Screen Positive Urine Cocaine Screen Negative Urine Cannabinoids Negative Test 07/22/16 19:35 07/22/16 21:41 07/23/16 01:58 07/23/16 07:20 Creatine Kinase 63 69 Creatine Kinase Index 2.4 3.0 Creatinine Kinase MB (Mass) 1.51 2.09 Troponin I 0.351 *H 0.972 *H Bedside Glucose 262 H 204 Sodium Level 138 Potassium Level 4.1 Chloride Level 105 Carbon Dioxide Level 24 Anion Gap 13 Blood Urea Nitrogen 7 Creatinine 0.54 L Glucose Level 227 H Calcium Level 9.0 Phosphorus Level 4.1 Magnesium Level 1.6 L Triglycerides Level 379 H Cholesterol Level 204 H LDL Cholesterol, Calculated 95 HDL Cholesterol 33 Cholesterol/HDL Ratio 6.1 Test 07/23/16 07:24 07/23/16 08:21 White Blood Count 8.3 Red Blood Count 4.78 Hemoglobin 14.8 Hematocrit 42.7 Mean Corpuscular Volume 89.3 Mean Corpuscular Hemoglobin 31.0 Mean Corpuscular Hemoglobin Concent 34.7 Red Cell Distribution Width 12.8 Platelet Count 190 Mean Platelet Volume 10.0 Neutrophils % 61.9 Lymphocytes % 27.8 Monocytes % 8.7 Eosinophils % 0.8 Basophils % 0.4 Nucleated Red Blood Cells % 0.0 Neutrophils # 5.1 Lymphocytes # 2.3 Monocytes # 0.7 Eosinophils # 0.1 Basophils # 0.0 Nucleated Red Blood Cells # 0.0 Bedside Glucose 236 H Medications Medications Current Medications Metoclopramide HCl (Reglan) 10 mg Q6H PRN IV NAUSEA AND/OR VOMITING; Start at 04:00 Nitroglycerin (Nitroglycerin (Sl Tab) 0.4 Mg) 1 tab Q5M PRN SL CHEST PAIN Last administered on 07/22/16 16:56; Admin Dose 1 TAB; Start 07/22/16 at 04:00 Acetaminophen (Tylenol Tab) 650 mg Q6H PRN PO PAIN LEVEL 1-3 OR FEVER Last administered on 07/23/16 02:12; Admin Dose 650 MG; Start 07/22/16 at 04:00 Morphine Sulfate (morphine) 2 mg Q4H PRN IV PAIN LEVEL 7-10; Start 07/22/16 at 04:00 Famotidine (Pepcid) 20 mg Q12 PO Last administered on 07/23/16 09:06; Admin Dose 20 MG; Start 07/22/16 at 09:00 Aspirin (Halfprin) 81 mg DAILY PO Last administered on 07/23/16 08:59; Admin Dose 81 MG; Start 07/23/16 at 09:00 Hydralazine HCl (Apresoline) 10 mg Q6H PRN IV SBP>160; Start 07/22/16 at 10:00 Miscellaneous Information 1 ea NOTE XX ; Start 07/22/16 at 11:00 Glucose (Glutose) 15 gm Q15M PRN PO DECREASED GLUCOSE; Start 07/22/16 at 11:00 Glucose (Glutose) 22.5 gm Q15M PRN PO DECREASED GLUCOSE; Start 07/22/16 at 11: 00 Dextrose (D50w Syringe) 25 ml Q15M PRN IV DECREASED GLUCOSE; Start 07/22/16 at 11:00 Dextrose (D50w Syringe) 50 ml Q15M PRN IV DECREASED GLUCOSE; Start 07/22/16 at 11:00 Glucagon (Glucagen) 1 mg Q15M PRN IM DECREASED GLUCOSE; Start 07/22/16 at 11:00 Glucose (Glutose) 15 gm Q15M PRN BUCCAL DECREASED GLUCOSE; Start 07/22/16 at 11 :00 Atorvastatin Calcium (Lipitor) 80 mg HS PO Last administered on 07/22/16 21:42 ; Admin Dose 80 MG; Start 07/22/16 at 21:00 Carvedilol (Coreg) 6.25 mg BID PO Last administered on 07/23/16 09:01; Admin Dose 6.25 MG; Start 07/22/16 at 21:00 Alprazolam (Xanax) 0.25 mg Q6H PRN PO ANXIETY; Start 07/22/16 at 11:30 Al Hydrox/Mg Hydrox/Simethicone (Mag-Al Plus) 30 ml Q4H PRN PO GASTROINTESTINAL UPSET; Start 07/22/16 at 11:30 Ondansetron HCl (Zofran Inj) 4 mg Q4H PRN IV NAUSEA AND/OR VOMITING; Start at 11:30 Enoxaparin Sodium (Lovenox) 30 mg Q12 SC Last administered on 07/23/16 09:05; Admin Dose 30 MG; Start 07/22/16 at 21:00 Enoxaparin Sodium (Lovenox) 80 mg Q12 SC Last administered on 07/23/16 09:05; Admin Dose 80 MG; Start 07/22/16 at 21:00 Cholecalciferol (Vitamin D) 1,000 unit DAILY PO Last administered on 07/23/16 08:59; Admin Dose 1,000 UNIT; Start 07/23/16 at 09:00 Insulin Glargine 25 unit 25 unit DAILY@08 SC ; Start 07/24/16 at 08:00 Magnesium Sulfate (Magnesium Sulfate 2 Gm/50 ml) 50 ml @ 25 mls/hr ONCE ONCE IVPB ; Start 07/23/16 at 11:00; Stop 07/23/16 at 12:59 JAZZY JAMES MD Jul 23, 2016 11:05
--- NOTE | 2016-07-23 11:56 | PN ---
Date/Time of Note Date/Time of Note DATE: 07/23/16 TIME: 11:55 Assessment/Plan Lines/Catheters IV Catheter Type (from Nrs): Peripheral IV Maynard in Place (from Nrs): No Assessment/Plan Chief Complaint/Hosp Course IMPRESSION: Coronary artery disease. RECOMMENDATIONS: Will proceed with coronary artery bypass grafting. The patient had asked if he can go home and come back for his surgery. I will discuss with the referring physicians. Problems: Subjective 24 Hr Interval Summary Constitutional: improved Pain Control: mild Exam/Review of Systems Vital Signs Vitals Vital Signs Date Time Temp Pulse Resp B/P Pulse Ox O2 Delivery O2 Flow Rate FiO2 07/23/16 08:12 97.6 71 20 135/87 96 07/22/16 17:00 Room Air 07/22/16 10:40 2.0 Intake and Output 07/22/16 07/22/16 07/23/16 15:00 23:00 07:00 Intake Total 200 ml 1000 ml Balance 200 ml 1000 ml Exam ENMT: mucosa pink and moist, nl external ears & nose, nl lips & teeth, nl nasal mucosa & septum Neck: non-tender, supple Respiratory: clear to auscultation, normal air movement Cardiovascular: nl pulses, regular rate and rhythm Gastrointestinal: nl liver, spleen, non-tender, soft Results Result Diagram: 07/23/16 0724 07/23/16 0720 MILAN AKHTAR MD Jul 23, 2016 11:56
--- NOTE | 2016-07-23 14:43 | PN ---
DATE: 07/23/2016 TIME OF EVALUATION: 1300 SUBJECTIVE DATA: Denies any chest pain. Blood sugars running high. OBJECTIVE DATA: VITAL SIGNS: Temperature 97.0, pulse rate 80, respiratory rate 20, blood pressure 141/80, oxygen saturation 97% on room air. GENERAL: This is an obese male lying in bed in no apparent distress. HEENT: Head normocephalic and atraumatic. Eyes: Anicteric sclerae. Conjunctivae clear. ENT: Nasal septum is midline. Oral mucosa is moist. NECK: Supple. No JVD noticed. RESPIRATORY: Bilaterally clear to auscultation. No adventitious sounds heard. No use of accessory muscles of respiration. CARDIAC: Regular rate and rhythm. No murmurs heard. ABDOMEN: Soft, nontender and nondistended. Bowel sounds positive in all 4 quadrants. GENITOURINARY: Deferred. EXTREMITIES: No cyanosis, no clubbing, no edema. Peripheral pulses palpable. NEUROLOGIC: The patient is awake, alert and oriented. Cranial nerves are grossly intact. LABORATORY AND DIAGNOSTIC DATA: WBC 8.3, hemoglobin 14.9, hematocrit 42.7, platelet count 190. Sodium 138, potassium 4.1, chloride 105, carbon dioxide 24 , anion gap 13, BUN 7, creatinine 0.54, glucose 227, calcium 9.0, phosphorus 4.1 , magnesium 1.6. Triglycerides 379, total cholesterol 204, LDL 95, HDL 33. ASSESSMENT AND PLAN: 1. Non-ST elevation myocardial infarction. Status post cardiac catheterization revealing 2-vessel coronary artery disease. The patient is being evaluated for a coronary artery bypass graft. Continue aggressive medical management. 2. Type 2 diabetes mellitus, uncontrolled. Hemoglobin A1c 10.3. Continue sliding scale insulin along with basal insulin and Lantus insulin. Will adjust insulin dosing to obtain optimum pressure control. 5. Dyslipidemia. The patient has elevated total cholesterol and elevated triglycerides, along with suboptimal LDL and HDL. The patient will be continued on statins. 6. Essential hypertension. The patient will be maintained on antihypertensives. Blood pressure fairly well controlled. 7. Vitamin D deficiency. The patient will be started on vitamin D supplements. 8. Fluid, electrolytes and nutrition. Carbohydrate controlled, low cholesterol diet. 9. Deep venous thrombosis prophylaxis. On therapeutic Lovenox because of underlying non-ST elevation myocardial infarction. 10. Gastrointestinal prophylaxis. Histamine 2 receptor blockers. 11. Plan. Continue medical optimization. Await coronary artery bypass grafting. The case was discussed with Dr. Tello. NADEGE TELLO MD, AM/YUDY Conf#: [id number] DID#: [id number] MTDD
[2016-07-23] MEDS: ATORVASTATIN 80 MG TAB PO SCH (20:27)
[2016-07-24] VITALS (12 sets, daily range): BP systolic 112–133; BP diastolic 67–90; PULSE 68–82; RESP 18–20
[2016-07-24] MEDS ORDERED: INSULIN GLARGINE [LANtus] 3 ML PEN SC SCH (08:00)
[2016-07-24 08:05] LABS: ADD SCAN DIFF NO
[2016-07-24 08:07] LABS: BASOPHILS % 0.4 % (0.0-2.0); EOSINOPHILS % 0.5 % (0.0-7.0); HEMOGLOBIN 15.5 g/dl (14.0-18.0); LYMPHOCYTES # 1.4 10^3/ul (0.8-2.9); LYMPHOCYTES % 17.5 % (15.0-51.0); MEAN CORPUSCULAR HEMOGLOBIN 30.8 pg (29.0-33.0); MEAN CORPUSCULAR HGB CONC 34.4 g/dl (32.0-37.0); MEAN CORPUSCULAR VOLUME 89.5 fl (82.0-101.0); MEAN PLATELET VOLUME 9.6 fl (7.4-10.4); MONOCYTE # 0.6 10^3/ul (0.3-0.9); MONOCYTES % 7.3 % (0.0-11.0); NEUTROPHILS % 74.1 % (39.0-77.0); PLATELET COUNT 201 10^3/UL (140-415); RED BLOOD COUNT 5.03 10^6/ul (4.70-6.10); RED CELL DISTRIBUTION WIDTH 12.4 % (11.5-14.5); WHITE BLOOD COUNT 8.1 10^3/ul (4.8-10.8)
[2016-07-24 08:37] LABS: CALCIUM 9.3 mg/dl (8.4-10.2); CREATININE 0.67 mg/dl (0.61-1.24)
[2016-07-24 08:41] LABS: MAGNESIUM 1.7 mg/dl (1.7-2.5); PHOSPHORUS 4.3 mg/dl (2.5-4.9)
[2016-07-24] MEDS: FAMOTIDINE 20 MG TAB PO SCH ×2 (08:50→20:46)
[2016-07-24] MEDS: CHOLECALCIFEROL 1,000 UNIT TAB PO SCH (08:50)
[2016-07-24] MEDS: ASPIRIN (EC) 81 MG TAB PO SCH (08:50)
[2016-07-24] MEDS: INSULIN ASPART [NOVOLOG] 3 ML PEN SC SCH ×7 (08:54→20:51)
[2016-07-24] MEDS: ENOXAPARIN 80 MG/0.8 ML SYG SC SCH ×2 (08:55→20:52)
[2016-07-24] MEDS: ENOXAPARIN 30 MG/0.3 ML SYG SC SCH ×2 (08:55→20:52)
--- NOTE | 2016-07-24 09:42 | PN ---
DATE: 07/24/2016 SUBJECTIVE: The patient is awake, alert, and comfortable; denies chest pain at this time. OBJECTIVE: VITAL SIGNS: Temperature 98, pulse 77, blood pressure 117/78. NECK: No jugular venous distention. CARDIAC: Regular rate and rhythm. ABDOMEN: Obese, soft, nontender. EXTREMITIES: No clubbing, cyanosis or edema. LABORATORY RESULTS: CBC within normal limits. Sodium 130, potassium 4.0. Creatinine pending. CURRENT MEDICATIONS: 1. Lantus. 2. Lipitor. 3. Coreg. 4. Lovenox 80 mg q.12. 5. Alprazolam. ASSESSMENT: Patient with presentation of non-ST elevation myocardial infarction, status post cathet erization with severe coronary artery disease. Patient discussed with Dr. Chaney whether or not to perform in-hospital. Will continue on Lovenox until timing of surgery is decided. Continue on c arvedilol, Lipitor and aspirin. Dictated By: SUHAIL HANNON/YUDY Conf#: [id number] DID#: [id number]
--- NOTE | 2016-07-24 10:07 | PN ---
Date/Time of Note Date/Time of Note DATE: 07/24/16 TIME: 10:07 Assessment/Plan VTE Prophylaxis VTE Prophylaxis Intervention: other Lines/Catheters IV C[facility]ter Type (from [facility]): Urinary Cath still in place: No Assessment/Plan Chief Complaint/Hosp Course IMPRESSION: Coronary artery disease. RECOMMENDATIONS: Will proceed with coronary artery bypass grafting tomorrow. I will discuss with the referring physicians. Problems: Subjective 24 Hr Interval Summary Gastrointestinal: no complaints Genitourinary: no complaints Musculoskeletal: no complaints Skin: no complaints Exam/Review of Systems Vital Signs Vitals Vital Signs Date Time Temp Pulse Resp B/P Pulse Ox O2 Delivery O2 Flow Rate FiO2 07/24/16 08:16 98.0 77 18 117/78 98 07/22/16 17:00 Room Air 07/22/16 10:40 2.0 Intake and Output 07/23/16 07/23/16 07/24/16 15:00 23:00 07:00 Intake Total 50 ml 920 ml 60 ml Output Total 850 ml Balance 50 ml 70 ml 60 ml Exam Neck: non-tender, supple Respiratory: clear to auscultation, normal air movement Cardiovascular: nl pulses, regular rate and rhythm Gastrointestinal: nl liver, spleen, non-tender, soft Results Result Diagram: 07/24/1618 07/24/16 0718 Results 24 hrs Laboratory Tests Test 07/23/16 12:00 07/23/16 17:06 07/23/16 20:32 07/24/16 07:18 Bedside Glucose 230 H 184 236 H White Blood Count 8.1 Red Blood Count 5.03 Hemoglobin 15.5 Hematocrit 45.0 Mean Corpuscular Volume 89.5 Mean Corpuscular Hemoglobin 30.8 Mean Corpuscular Hemoglobin Concent 34.4 Red Cell Distribution Width 12.4 Platelet Count 201 Mean Platelet Volume 9.6 Neutrophils % 74.1 Lymphocytes % 17.5 Monocytes % 7.3 Eosinophils % 0.5 Basophils % 0.4 Nucleated Red Blood Cells % 0.0 Neutrophils # 6.0 Lymphocytes # 1.4 Monocytes # 0.6 Eosinophils # 0.0 Basophils # 0.0 Nucleated Red Blood Cells # 0.0 Sodium Level 138 Potassium Level 4.0 Chloride Level 100 Carbon Dioxide Level 28 Anion Gap 14 Blood Urea Nitrogen 10 Creatinine 0.67 Glucose Level 219 Calcium Level 9.3 Phosphorus Level 4.3 Magnesium Level 1.7 Test 07/24/16 08:05 Bedside Glucose 191 Medications Medications Current Medications Metoclopramide HCl (Reglan) 10 mg Q6H PRN IV NAUSEA AND/OR VOMITING; Start at 04:00 Nitroglycerin (Nitroglycerin (Sl Tab) 0.4 Mg) 1 tab Q5M PRN SL CHEST PAIN Last administered on 07/22/16 16:56; Admin Dose 1 TAB; Start 07/22/16 at 04:00 Acetaminophen (Tylenol Tab) 650 mg Q6H PRN PO PAIN LEVEL 1-3 OR FEVER Last administered on 07/23/16 02:12; Admin Dose 650 MG; Start 07/22/16 at 04:00 Morphine Sulfate (morphine) 2 mg Q4H PRN IV PAIN LEVEL 7-10; Start 07/22/16 at 04:00 Famotidine (Pepcid) 20 mg Q12 PO Last administered on 07/24/16 08:50; Admin Dose 20 MG; Start 07/22/16 at 09:00 Aspirin (Halfprin) 81 mg DAILY PO Last administered on 07/24/16 08:50; Admin Dose 81 MG; Start 07/23/16 at 09:00 Hydralazine HCl (Apresoline) 10 mg Q6H PRN IV SBP>160; Start 07/22/16 at 10:00 Miscellaneous Information 1 ea NOTE XX ; Start 07/22/16 at 11:00 Glucose (Glutose) 15 gm Q15M PRN PO DECREASED GLUCOSE; Start 07/22/16 at 11:00 Glucose (Glutose) 22.5 gm Q15M PRN PO DECREASED GLUCOSE; Start 07/22/16 at 11: 00 Dextrose (D50w Syringe) 25 ml Q15M PRN IV DECREASED GLUCOSE; Start 07/22/16 at 11:00 Dextrose (D50w Syringe) 50 ml Q15M PRN IV DECREASED GLUCOSE; Start 07/22/16 at 11:00 Glucagon (Glucagen) 1 mg Q15M PRN IM DECREASED GLUCOSE; Start 07/22/16 at 11:00 Glucose (Glutose) 15 gm Q15M PRN BUCCAL DECREASED GLUCOSE; Start 07/22/16 at 11 :00 Atorvastatin Calcium (Lipitor) 80 mg HS PO Last administered on 07/23/16 20:27 ; Admin Dose 80 MG; Start 07/22/16 at 21:00 Carvedilol (Coreg) 6.25 mg BID PO Last administered on 07/24/16 08:50; Admin Dose 6.25 MG; Start 07/22/16 at 21:00 Alprazolam (Xanax) 0.25 mg Q6H PRN PO ANXIETY; Start 07/22/16 at 11:30 Al Hydrox/Mg Hydrox/Simethicone (Mag-Al Plus) 30 ml Q4H PRN PO GASTROINTESTINAL UPSET; Start 07/22/16 at 11:30 Ondansetron HCl (Zofran Inj) 4 mg Q4H PRN IV NAUSEA AND/OR VOMITING; Start at 11:30 Enoxaparin Sodium (Lovenox) 30 mg Q12 SC Last administered on 07/24/16 08:55; Admin Dose 30 MG; Start 07/22/16 at 21:00 Enoxaparin Sodium (Lovenox) 80 mg Q12 SC Last administered on 07/24/16 08:55; Admin Dose 80 MG; Start 07/22/16 at 21:00 Cholecalciferol (Vitamin D) 1,000 unit DAILY PO Last administered on 07/24/16 08:50; Admin Dose 1,000 UNIT; Start 07/23/16 at 09:00 Insulin Glargine (Lantus) 25 unit DAILY@08 SC Last administered on 07/24/16 08 :53; Admin Dose 25 UNIT; Start 07/24/16 at 08:00 MILAN AKHTAR MD Jul 24, 2016 10:07
--- NOTE | 2016-07-24 12:21 | PN ---
Date/Time of Note Date/Time of Note DATE: 07/24/16 TIME: 12:21 Assessment/Plan VTE Prophylaxis VTE Prophylaxis Intervention: LMWH Lines/Catheters [facility] ([facility] Urinary Cath still in place: No Assessment/Plan Chief Complaint/Hosp Course 1. Non-ST elevation myocardial infarction. Status post cardiac catheterization revealing 2-vessel coronary artery disease. The patient is being evaluated for a coronary artery bypass graft. Continue aggressive medical management. 2. Type 2 diabetes mellitus, uncontrolled. Hemoglobin A1c 10.3. Continue sliding scale insulin along with basal insulin and Lantus insulin. Will adjust insulin dosing to obtain optimum pressure control. 5. Dyslipidemia. The patient has elevated total cholesterol and elevated triglycerides, along with suboptimal LDL and HDL. The patient will be continued on statins. 6. Essential hypertension. The patient will be maintained on antihypertensives. Blood pressure fairly well controlled. 7. Vitamin D deficiency. The patient on vitamin D supplements. 8. Fluid, electrolytes and nutrition. Carbohydrate controlled, low cholesterol diet. 9. Deep venous thrombosis prophylaxis. SQ Lovenox. 10. Gastrointestinal prophylaxis. Histamine 2 receptor blockers. 11. Plan. Continue medical optimization. Await coronary artery bypass grafting. The case was discussed with Dr. Yeboah. Problems: Subjective 24 Hr Interval Summary Free Text/Dictation No reported chest pain. Exam/Review of Systems Vital Signs Vitals Vital Signs Date Time Temp Pulse Resp B/P Pulse Ox O2 Delivery O2 Flow Rate FiO2 07/24/16 12:13 82 07/24/16 08:16 98.0 18 117/78 98 07/22/16 17:00 Room Air 07/22/16 10:40 2.0 Intake and Output 07/23/16 07/23/16 07/24/16 15:00 23:00 07:00 Intake Total 50 ml 920 ml 60 ml Output Total 850 ml Balance 50 ml 70 ml 60 ml Exam GENERAL: This is an obese male lying in bed in no apparent distress. HEENT: Head normocephalic and atraumatic. Eyes: Anicteric sclerae. Conjunctivae clear. ENT: Nasal septum is midline. Oral mucosa is moist. NECK: Supple. No JVD noticed. RESPIRATORY: Bilaterally clear to auscultation. No adventitious sounds heard. No use of accessory muscles of respiration. CARDIAC: Regular rate and rhythm. No murmurs heard. ABDOMEN: Soft, nontender and nondistended. Bowel sounds positive in all 4 quadrants. GENITOURINARY: Deferred. EXTREMITIES: No cyanosis, no clubbing, no edema. Peripheral pulses palpable. NEUROLOGIC: The patient is awake, alert and oriented. Cranial nerves are grossly intact. Results Result Diagram: 07/24/16 0718 07/24/16 0718 Results 24 hrs Laboratory Tests Test 07/23/16 17:06 07/23/16 20:32 07/24/16 07:18 07/24/16 08:05 Bedside Glucose 184 236 H 191 White Blood Count 8.1 Red Blood Count 5.03 Hemoglobin 15.5 Hematocrit 45.0 Mean Corpuscular Volume 89.5 Mean Corpuscular Hemoglobin 30.8 Mean Corpuscular Hemoglobin Concent 34.4 Red Cell Distribution Width 12.4 Platelet Count 201 Mean Platelet Volume 9.6 Neutrophils % 74.1 Lymphocytes % 17.5 Monocytes % 7.3 Eosinophils % 0.5 Basophils % 0.4 Nucleated Red Blood Cells % 0.0 Neutrophils # 6.0 Lymphocytes # 1.4 Monocytes # 0.6 Eosinophils # 0.0 Basophils # 0.0 Nucleated Red Blood Cells # 0.0 Sodium Level 138 Potassium Level 4.0 Chloride Level 100 Carbon Dioxide Level 28 Anion Gap 14 Blood Urea Nitrogen 10 Creatinine 0.67 Glucose Level 219 Calcium Level 9.3 Phosphorus Level 4.3 Magnesium Level 1.7 Medications Medications Current Medications Metoclopramide HCl (Reglan) 10 mg Q6H PRN IV NAUSEA AND/OR VOMITING; Start at 04:00 Nitroglycerin (Nitroglycerin (Sl Tab) 0.4 Mg) 1 tab Q5M PRN SL CHEST PAIN Last administered on 07/22/16 16:56; Admin Dose 1 TAB; Start 07/22/16 at 04:00 Acetaminophen (Tylenol Tab) 650 mg Q6H PRN PO PAIN LEVEL 1-3 OR FEVER Last administered on 07/23/16 02:12; Admin Dose 650 MG; Start 07/22/16 at 04:00 Morphine Sulfate (morphine) 2 mg Q4H PRN IV PAIN LEVEL 7-10; Start 07/22/16 at 04:00 Famotidine (Pepcid) 20 mg Q12 PO Last administered on 07/24/16 08:50; Admin Dose 20 MG; Start 07/22/16 at 09:00 Aspirin (Halfprin) 81 mg DAILY PO Last administered on 07/24/16 08:50; Admin Dose 81 MG; Start 07/23/16 at 09:00 Hydralazine HCl (Apresoline) 10 mg Q6H PRN IV SBP>160; Start 07/22/16 at 10:00 Miscellaneous Information 1 ea NOTE XX ; Start 07/22/16 at 11:00 Glucose (Glutose) 15 gm Q15M PRN PO DECREASED GLUCOSE; Start 07/22/16 at 11:00 Glucose (Glutose) 22.5 gm Q15M PRN PO DECREASED GLUCOSE; Start 07/22/16 at 11: 00 Dextrose (D50w Syringe) 25 ml Q15M PRN IV DECREASED GLUCOSE; Start 07/22/16 at 11:00 Dextrose (D50w Syringe) 50 ml Q15M PRN IV DECREASED GLUCOSE; Start 07/22/16 at 11:00 Glucagon (Glucagen) 1 mg Q15M PRN IM DECREASED GLUCOSE; Start 07/22/16 at 11:00 Glucose (Glutose) 15 gm Q15M PRN BUCCAL DECREASED GLUCOSE; Start 07/22/16 at 11 :00 Atorvastatin Calcium (Lipitor) 80 mg HS PO Last administered on 07/23/16 20:27 ; Admin Dose 80 MG; Start 07/22/16 at 21:00 Carvedilol (Coreg) 6.25 mg BID PO Last administered on 07/24/16 08:50; Admin Dose 6.25 MG; Start 07/22/16 at 21:00 Alprazolam (Xanax) 0.25 mg Q6H PRN PO ANXIETY; Start 07/22/16 at 11:30 Al Hydrox/Mg Hydrox/Simethicone (Mag-Al Plus) 30 ml Q4H PRN PO GASTROINTESTINAL UPSET; Start 07/22/16 at 11:30 Ondansetron HCl (Zofran Inj) 4 mg Q4H PRN IV NAUSEA AND/OR VOMITING; Start at 11:30 Enoxaparin Sodium (Lovenox) 30 mg Q12 SC Last administered on 07/24/16 08:55; Admin Dose 30 MG; Start 07/22/16 at 21:00 Enoxaparin Sodium (Lovenox) 80 mg Q12 SC Last administered on 07/24/16 08:55; Admin Dose 80 MG; Start 07/22/16 at 21:00 Cholecalciferol (Vitamin D) 1,000 unit DAILY PO Last administered on 07/24/16 08:50; Admin Dose 1,000 UNIT; Start 07/23/16 at 09:00 Insulin Glargine (Lantus) 25 unit DAILY@08 SC Last administered on 07/24/16 08 :53; Admin Dose 25 UNIT; Start 07/24/16 at 08:00 NADEGE SPENCER NP Jul 24, 2016 12:21
[2016-07-24] MEDS: ATORVASTATIN 80 MG TAB PO SCH (20:46)
[2016-07-25] VITALS (52 sets, daily range): BP systolic 88–158; BP diastolic 51–82; PULSE 56–106; RESP 14–26; TEMP 99–100.4
[2016-07-25] MEDS: SOD CHLORIDE 0.9% 1,000 ML IV SCH ×2 (00:04→14:11)
[2016-07-25] MEDS ORDERED: HEPARIN 1000 UNITS/ML 10 ML INJ ONE ×4 (06:40→10:13)
[2016-07-25] MEDS ORDERED: VANCOMYCIN 1 GM INJ ONE (06:40)
[2016-07-25] MEDS ORDERED: THROMBIN 5000 UNIT VIAL ONE (06:41)
[2016-07-25] MEDS ORDERED: GELATIN SIZE 100 SPONGE ONE (06:41)
[2016-07-25] MEDS ORDERED: PAPAVERINE 60 MG INJ ONE (06:41)
[2016-07-25 07:03] LABS: ADD SCAN DIFF NO
[2016-07-25 07:11] LABS: BASOPHILS % 0.3 % (0.0-2.0); EOSINOPHILS # 0.1 10^3/ul (0.0-0.5); EOSINOPHILS % 1.3 % (0.0-7.0); HEMOGLOBIN 14.6 g/dl (14.0-18.0); LYMPHOCYTES # 1.9 10^3/ul (0.8-2.9); LYMPHOCYTES % 31.5 % (15.0-51.0); MEAN CORPUSCULAR HGB CONC 34.8 g/dl (32.0-37.0); MEAN CORPUSCULAR VOLUME 89.2 fl (82.0-101.0); MEAN PLATELET VOLUME 9.6 fl (7.4-10.4); MONOCYTE # 0.6 10^3/ul (0.3-0.9); MONOCYTES % 10.1 % (0.0-11.0); NEUTROPHIL # 3.4 10^3/ul (1.6-7.5); NEUTROPHILS % 56.5 % (39.0-77.0); PLATELET COUNT 199 10^3/UL (140-415); RED BLOOD COUNT 4.71 10^6/ul (4.70-6.10); RED CELL DISTRIBUTION WIDTH 12.6 % (11.5-14.5); WHITE BLOOD COUNT 5.9 10^3/ul (4.8-10.8)
[2016-07-25 07:25] LABS: POTASSIUM 3.7 mmol/L (3.5-5.1)
[2016-07-25 07:27] LABS: CREATININE 0.62 mg/dl (0.61-1.24)
[2016-07-25 07:28] LABS: CALCIUM 9.3 mg/dl (8.4-10.2)
[2016-07-25] MEDS ORDERED: MIDAZOLAM 5 ML ONE ×3 (07:28→10:06)
[2016-07-25] MEDS ORDERED: EPINEPHrine 4 MG in DEXTROSE 5% 246 ML IV SCH (07:30)
[2016-07-25] MEDS ORDERED: INSULIN REGULAR, HUMAN 100 UNIT in SOD CHLORIDE 0.9% 99 ML IV SCH ×4 (07:30→17:00)
[2016-07-25] MEDS ORDERED: PHENYLephrine 20MG IN 250 ML 250 ML IV SCH (07:30)
[2016-07-25] MEDS ORDERED: PHENYLephrine (100 MCG/ML) 5ML SYG ONE ×3 (07:33→10:17)
[2016-07-25] MEDS ORDERED: ALBUMIN HUMAN 25% 300 ML ONE (07:38)
[2016-07-25] MEDS ORDERED: AMINOCAPROIC ACID 5 GM INJ ONE ×4 (07:39→11:48)
[2016-07-25] MEDS ORDERED: CA CHLORIDE 10% 10 ML SYRINGE ONE (07:39)
[2016-07-25] MEDS ORDERED: LIDOCAINE 100 MG SYRINGE ONE (07:41)
[2016-07-25] MEDS ORDERED: POTASSIUM CHLORIDE 40 MEQ INJ ONE (07:41)
[2016-07-25] MEDS ORDERED: MAGNESIUM SULFATE (MG) 50% 10 ML INJ ONE (07:42)
[2016-07-25] MEDS ORDERED: PHENYLephrine 10 MG INJ ONE (07:43)
[2016-07-25] MEDS ORDERED: MANNITOL 25% 100 ML ONE (07:43)
[2016-07-25] MEDS ORDERED: NA BICARBONATE 8.4% 50 ML SYG ONE (07:44)
[2016-07-25] MEDS ORDERED: INSULIN GLARGINE [LANtus] 3 ML PEN SC SCH (08:00)
[2016-07-25] MEDS: INSULIN ASPART [NOVOLOG] 3 ML PEN SC SCH ×4 (08:00→11:30)
[2016-07-25] MEDS ORDERED: CEFAZOLIN 1 GM INJ ONE ×2 (08:51→11:48)
[2016-07-25] MEDS: ENOXAPARIN 80 MG/0.8 ML SYG SC SCH (09:00)
[2016-07-25] MEDS: ENOXAPARIN 30 MG/0.3 ML SYG SC SCH (09:00)
[2016-07-25] MEDS: ASPIRIN (EC) 81 MG TAB PO SCH (09:00)
[2016-07-25] MEDS ORDERED: PROTAMINE 250 MG INJ ONE ×2 (11:41→11:46)
[2016-07-25] MEDS ORDERED: ROCURONIUM 50 MG INJ ONE (12:53)
[2016-07-25] MEDS ORDERED: LIDOCAINE 2% (SDV) 5 ML INJ ONE (12:53)
[2016-07-25] MEDS ORDERED: ETOMIDATE 20 MG INJ ONE (12:53)
--- NOTE | 2016-07-25 13:10 | RADRPT ---
PROCEDURE: XR Chest. CLINICAL INDICATION: Postop. TECHNIQUE: Single frontal chest x-ray. COMPARISON: Chest radiograph 07/22/2016. FINDINGS: Interval placement of endotracheal tube tip which terminates approximately 2 cm above the ana. A right IJ [place]-Jesse catheter is noted with the tip projects over the region of the proximal right pul monary artery. The cardiomediastinal silhouette is unremarkable. There are bilateral low lung volumes with vascular crowding and mild bibasilar atelectasis. No pneum othorax, pleural effusion or consolidation is seen. There are post cardiac surgery changes with sternotomy wires and mediastinal clips. IMPRESSION: 1. Interval placement of endotracheal tube tip which terminates approximately 2 cm above the ana . 2. A right IJ [place]-Jesse catheter with the tip projects over the region of the proximal right pulmon noah artery. 3. Bilateral low lung volumes with compressive changes and mild bibasilar atelectasis. A call report was made and above findings were discussed and acknowledged by NUNU Berrios on 07/25/2016 12 :57 PM. RPTAT: QQ .Dennis Shelton MD, MD Date Time Electronically viewed and signed by .Dennis Shelton MD, on 07/25/2016 13:09 .N/
[2016-07-25] MEDS ORDERED: DIAZEPAM 5 MG TAB ONE (13:13)
--- NOTE | 2016-07-25 13:26 | OPR ---
Date/Time of Note Date/Time of Note DATE: 07/25/16 TIME: 13:24 Operative Report Preoperative Diagnosis CAD Postoperative Diagnosis CAD Operation Performed CABG Surgeon: MILAN AKHTAR MD Stem Shaper: GEOVANNA WHATLEY MD Anesthesia: general Complications: None Pt Condition Post Procedure: critical Indications cad Operative\Procedure Findings Dictated MILAN AKHTAR MD Jul 25, 2016 13:26
[2016-07-25] MEDS: morphine 2 MG INJ IV PRN ×3 (13:29→17:42)
[2016-07-25] MEDS ORDERED: NITROGLYCERIN 50 MG/D5W (PMX) 250 ML IV SCH ×3 (13:30→16:00)
[2016-07-25] MEDS ORDERED: DOPamine-D5W 1.6 MG/ML 250 ML IV SCH (13:30)
[2016-07-25 13:53] LABS: ADD SCAN DIFF NO
[2016-07-25 14:01] LABS: BASOPHILS % 0.2 % (0.0-2.0); EOSINOPHILS # 0.1 10^3/ul (0.0-0.5); EOSINOPHILS % 0.3 % (0.0-7.0); HEMATOCRIT 36.9 % (42.0-52.0); HEMOGLOBIN 12.6 g/dl (14.0-18.0); LYMPHOCYTES # 3.2 10^3/ul (0.8-2.9); LYMPHOCYTES % 21.1 % (15.0-51.0); MEAN CORPUSCULAR HEMOGLOBIN 30.6 pg (29.0-33.0); MEAN CORPUSCULAR HGB CONC 34.1 g/dl (32.0-37.0); MEAN CORPUSCULAR VOLUME 89.6 fl (82.0-101.0); MEAN PLATELET VOLUME 9.3 fl (7.4-10.4); MONOCYTE # 1.2 10^3/ul (0.3-0.9); MONOCYTES % 7.8 % (0.0-11.0); NEUTROPHIL # 10.5 10^3/ul (1.6-7.5); PLATELET COUNT 168 10^3/UL (140-415); RED BLOOD COUNT 4.12 10^6/ul (4.70-6.10); RED CELL DISTRIBUTION WIDTH 12.7 % (11.5-14.5)
[2016-07-25 14:02] LABS: AADO2 Arterial 363.3 mmHg (7.0-24.0); Arterial Base Excess 0.1 mmol/L (-3.0-3); Arterial COHb 0.4 % (0.0-3.0); Arterial Fraction of Oxyhgb 94.7 % (93.0-99.0); Arterial MetHb 0.3 % (0.0-1.5); Arterial Total Hemglobin 13.4 g/dl (12.0-18.0); MODE VENT - AC
[2016-07-25 14:05] LABS: INR 1.11; POTASSIUM 3.7 mmol/L (3.5-5.1); PROTIME 14.3 Sec (12.2-14.2); PT RATIO 1.1
[2016-07-25 14:06] LABS: PARTIAL THROMBOPLASTIN TIME 31.7 Sec (25.0-35.0)
[2016-07-25 14:06] LABS: MODE VENT - AC; MetHgb Mixed Venous 0.1 %; Mixed Venous COHb 0.8 %; Mixed Venous Oxygen Sat 78.7 mmHG (65.0-75.0); Sample Type BLMV
[2016-07-25 14:07] LABS: CREATININE 0.8 mg/dl (0.61-1.24)
[2016-07-25 14:08] LABS: CALCIUM 9.2 mg/dl (8.4-10.2); MAGNESIUM 2.2 mg/dl (1.7-2.5)
[2016-07-25] MEDS ORDERED: ALBUMIN HUMAN 25% 100 ML ONE (14:28)
[2016-07-25] MEDS ORDERED: SOD CHLORIDE 0.9% 500 ML IV ONE ×3 (14:30→15:00)
[2016-07-25] MEDS ORDERED: ALBUMIN HUMAN 25% 100 ML IV ONE (14:30)
[2016-07-25] MEDS ORDERED: DEXTROSE 50% 50 ML SYRINGE IV PRN ×2 (15:30)
--- NOTE | 2016-07-25 15:45 | RADRPT ---
PROCEDURE: XR Chest AP portable CLINICAL INDICATION: Post CABG, moved [place]-Jesse catheter TECHNIQUE: An AP portable radiograph of the chest was submitted. COMPARISON: 07/25/2016 FINDINGS: Support Hardware: The endotracheal tube, the NG tube and the right [place]-Jesse catheter are stable in positioning with the [place]-Jesse tip projecting to the main pulmonary artery. Cardiovascular: Metallic sternal wiring is again evident and the heart is mildly enlarged with the p eripheral pulmonary vasculature mildly congested, unchanged. Lung Bashir: There is solid laceration compresses lung parenchyma but no alveolar infiltrate is evid ent. Pleural Spaces: No pneumothorax or pleural effusion is identified. Osseous Structures: The osseous structures appear intact. Soft Tissues: The soft tissues appear generous. IMPRESSION: 1. The tubes and lines are stable in positioning. 2. There is again evidence of a midline sternotomy. 3. Persistent mild cardiomegaly with mild pulmonary vascular congestion. Physician Светлана Date Time Electronically viewed and signed by Physician Светлана on 07/25/2016 15:44 /
--- NOTE | 2016-07-25 15:57 | OPR ---
DATE OF OPERATION: PREOPERATIVE DIAGNOSIS: Coronary artery disease. POSTOPERATIVE DIAGNOSIS: Coronary artery disease. PROCEDURES: 1. Coronary artery bypass grafting, left internal mammary artery to left anterior descending. 2. Saphenous vein graft to the PDA. 3. LAD endarterectomy. 4. Thymectomy. 5. Saphenous vein endoscopic harvest from the left thigh. SURGEON: Milan Chaney MD RODEO RIDER: Shar Urbano MD SECOND RODEO RIDER: [place] CONSENT: Risks, benefits, complications, alternative therapies explained to the patient and family, consent obtained. OPERATIVE TECHNIQUE: The patient was placed in supine position, prepped and draped in usual sterile fashion. Time-out was called. Antibiotics were given. A sternotomy incision was made from the sternal notch down to the xiphoid process. The saphenous ve in was harvested using endoscopic techniques from the left lower extremity. We then proceeded with opening the sternum in the mid aspect of the sternum. Left internal mammary was harvested using clair ctrocautery and titanium clips. Pericardium opened. A thymectomy was done to gain access to the ao rta. The patient fully heparinized. Cannulation sutures all 3-0 Prolene with pledgets were applied to the distal ascending aorta, mid ascending aorta, body of the right atrium, and right atrial appe ndage. After adequate documentation of ACT, the aorta was cannulated followed by 2-stage venous and antegrade and retrograde cardioplegia cannula. The heart was placed on cardiopulmonary bypass. Af ter cardiopulmonary bypass was commenced, cross clamp was applied to the soft part of the aorta. He art was arrested using antegrade and retrograde cardioplegia given every 15 to 20 minutes, also supp lemented by topical slush to the surface of the heart and cardioplegia given through the vein graft to the PDA. We proceeded with the distal anastomoses. After coronary endarterectomy on the LAD, ma mmary was anastomosed to the LAD 10 mm longitudinal arteriotomy in end-to-side fashion, 7-0 Pr olene continuous suture technique. The PDA was done in a similar fashion to the vein graft. The proximal vein graft was anastomosed to the aorta, 4.5 mm punch, 6-0 Prolene in continuous suture technique. The head was placed in steep Trendelenburg position. Crossclamp removed. The heart and the graft deaired. The patient came off cardiopulmonary bypass. No air was seen on the echocardiogram. After some ejection. The patient' s cannulas removed, sutures tied. Two chest tubes were placed, brought out through a lower stab wou nd, secured to skin using 2-0 silk sutures. No evidence of any bleeding was noted. The sternum was closed using cable system [id number] x4, linea alba and the deep tissues were irrigated using antibiotic solution and closed in 2 layers of #1 Vicryl suture for the linea alba, 2-0 Vicryl suture for subcutaneous and 4-0 Monocryl suture for running subcuticular skin closure with Steri-Strips. The leg was closed in a similar fashion. Patient tolerated procedure well. Dictated By: MILAN GALO/YUDY Conf#: [id number] DID#: [id number]
[2016-07-25] MEDS: POTASSIUM CHLORIDE 40 MEQ, CALCIUM CHLORIDE 10% 1 GM in DEXTROSE 5%-0.225% NACL 1,000 ML IV SCH (16:52)
[2016-07-25] MEDS: ACCU-CHEK XX SCH ×7 (17:00→23:54)
[2016-07-25 18:31] LABS: AADO2 Arterial 267.9 mmHg (7.0-24.0); Arterial Base Excess -3.2 mmol/L (-3.0-3); Arterial COHb 0.2 % (0.0-3.0); Arterial Fraction of Oxyhgb 96.9 % (93.0-99.0); Arterial HCO3 22.4 mmol/L (22.0-26.0); Arterial MetHb 0.3 % (0.0-1.5); Arterial Total Hemglobin 12.6 g/dl (12.0-18.0); MODE VENT - AC
[2016-07-25] MEDS: HYDROmorphONE 1 MG/ML SYG IV PRN ×2 (18:59→21:14)
[2016-07-25 20:22] LABS: ADD SCAN DIFF NO
[2016-07-25 20:32] LABS: POTASSIUM 4.3 mmol/L (3.5-5.1)
[2016-07-25] MEDS: ATORVASTATIN 80 MG TAB PO SCH (20:32)
[2016-07-25] MEDS: FAMOTIDINE 20 MG INJ IV SCH (20:32)
[2016-07-25 20:34] LABS: CREATININE 0.69 mg/dl (0.61-1.24)
[2016-07-25 20:35] LABS: CALCIUM 8.6 mg/dl (8.4-10.2)
[2016-07-25 20:36] LABS: BASOPHILS % 0.3 % (0.0-2.0); EOSINOPHILS % 0.1 % (0.0-7.0); HEMATOCRIT 33.8 % (42.0-52.0); HEMOGLOBIN 11.8 g/dl (14.0-18.0); LYMPHOCYTES % 9.8 % (15.0-51.0); MEAN CORPUSCULAR HGB CONC 34.9 g/dl (32.0-37.0); MEAN CORPUSCULAR VOLUME 91.6 fl (82.0-101.0); MEAN PLATELET VOLUME 10.1 fl (7.4-10.4); MONOCYTE # 0.8 10^3/ul (0.3-0.9); MONOCYTES % 7.6 % (0.0-11.0); NEUTROPHIL # 8.3 10^3/ul (1.6-7.5); NEUTROPHILS % 81.8 % (39.0-77.0); PLATELET COUNT 152 10^3/UL (140-415); RED BLOOD COUNT 3.69 10^6/ul (4.70-6.10); RED CELL DISTRIBUTION WIDTH 12.7 % (11.5-14.5); WHITE BLOOD COUNT 10.2 10^3/ul (4.8-10.8)
[2016-07-25] MEDS: ACETAMINOPHEN 325 MG TAB PO PRN (21:09)
--- NOTE | 2016-07-25 22:51 | PN ---
Date/Time of Note Date/Time of Note DATE: 07/25/16 TIME: 22:51 Assessment/Plan VTE Prophylaxis VTE Prophylaxis Intervention: LMWH Lines/Catheters IV [facility] [place] Jesse Urinary Cath still in place: No Assessment/Plan Chief Complaint/Hosp Course 1. Non-ST elevated myocardial infarction. Patient status post cardiac catheterization with 2 vessel coronary artery disease. Patient also status post CABG. Continue postop care. Continue with cardiology and CT surgeon recommendations 2. Type 2 diabetes. A1c of 10.3. Was placed on insulin drip. We'll transition off in a.m. 3. This of anemia. Continue on statin medication 4. Essential hypertension. Continue antihypertensives and adjust as needed 5. Vitamin D deficiency. Patient resumed on vitamin D supplement DVT prophylaxis: Lovenox Disposition and plan: Continue postop care. Monitor in ICU for now. Follow-up with clinical services consultant recommendations Discussed plan of care with Dr. Leiva Problems: Subjective 24 Hr Interval Summary Free Text/Dictation Status post surgical intervention. No apparent distress Exam/Review of Systems Vital Signs Vitals Vital Signs Date Time Temp Pulse Resp B/P Pulse Ox O2 Delivery O2 Flow Rate FiO2 07/25/16 22:00 100.3 100 16 106/63 99 07/25/16 21:29 60 07/25/16 05:30 Room Air 07/22/16 10:40 2.0 Intake and Output 07/24/16 07/24/16 07/25/16 15:00 23:00 07:00 Intake Total 1180 ml 275 ml Output Total 1300 ml 500 ml Balance -120 ml -225 ml Exam General: No acute signs or symptoms of distress Eyes: pupils equal round, Anicteric sclera Neck: Supple nontender, no JVD Cardiac: S1, S2 auscultated, regular rhythm and rate Pulmonary: Was intubated during visit GI: Abdomen soft nontender nondistended, bowel sounds active Extremities: No edema bilateral lower extremities Skin: [Surgical site on chest clean dry and intact. Also noted with lower extremity dressing. CDI Neurologic: Intubated during visit Results Result Diagram: 07/25/16201407/25/162014 Results 24 hrs Laboratory Tests Test 07/25/16 06:17 07/25/16 06:28 07/25/16 13:06 07/25/16 13:12 White Blood Count 5.9 # Red Blood Count 4.71 Hemoglobin 14.6 Hematocrit 42.0 Mean Corpuscular Volume 89.2 Mean Corpuscular Hemoglobin 31.0 Mean Corpuscular Hemoglobin Concent 34.8 Red Cell Distribution Width 12.6 Platelet Count 199 Mean Platelet Volume 9.6 Neutrophils % 56.5 Lymphocytes % 31.5 Monocytes % 10.1 Eosinophils % 1.3 Basophils % 0.3 Nucleated Red Blood Cells % 0.0 Neutrophils # 3.4 Lymphocytes # 1.9 Monocytes # 0.6 Eosinophils # 0.1 Basophils # 0.0 Nucleated Red Blood Cells # 0.0 Sodium Level 139 Potassium Level 3.7 Chloride Level 102 Carbon Dioxide Level 26 Anion Gap 15 Blood Urea Nitrogen 11 Creatinine 0.62 Glucose Level 192 Calcium Level 9.3 Magnesium Level 1.7 Bedside Glucose 182 63 L 57 L Test 07/25/16 13:31 07/25/16 13:39 07/25/16 13:45 07/25/16 13:48 Bedside Glucose 142 Blood Gas Specimen Source BLMV Blood arterial Arterial Blood Date Drawn 07/25/2016 1:56:49 PM 07/25/2016 1:50:11 PM Arterial Blood Gas Puncture Site PUL ART LINE A-Line Charly Test N/A N/A Mixed Venous Blood PO2 45.0 H Mixed Venous Blood O2 Saturation 78.7 H Mixed Venous Blood Total Hemoglobin 13.0 Mixed Venous Blood Oxyhemoglobin 78.0 Mixed Venous Bld Carboxyhemoglobin 0.8 Mixed Venous Blood Methemoglobin 0.1 Blood Gas Temperature 37.0 37.0 Blood Gas Respiration Rate 14.0 14.0 Blood Gas Actual Respiration Rate 14 14 Blood Gas Modality VENT - AC VENT - AC FiO2 70.0 70.0 Blood Gas Tidal Volume 600.0 600.0 Blood Gas Low PEEP Setting 8.0 8.0 Blood Gas Notified Whom ANUPAMA ALTMAN Blood Gas Notified Time 07/25/2016 2:06:33 PM 07/25/2016 2:02:49 PM White Blood Count 15.0 #H Red Blood Count 4.12 L Hemoglobin 12.6 L Hematocrit 36.9 L Mean Corpuscular Volume 89.6 Mean Corpuscular Hemoglobin 30.6 Mean Corpuscular Hemoglobin Concent 34.1 Red Cell Distribution Width 12.7 Platelet Count 168 Mean Platelet Volume 9.3 Neutrophils % 70.0 Lymphocytes % 21.1 Monocytes % 7.8 Eosinophils % 0.3 Basophils % 0.2 Nucleated Red Blood Cells % 0.0 Neutrophils # 10.5 H Lymphocytes # 3.2 H Monocytes # 1.2 H Eosinophils # 0.1 Basophils # 0.0 Nucleated Red Blood Cells # 0.0 Prothrombin Time 14.3 #H Prothrombin Time Ratio 1.1 INR International Normalized Ratio 1.11 Activated Partial Thromboplast Time 31.7 Sodium Level 145 H Potassium Level 3.7 Chloride Level 107 Carbon Dioxide Level 27 Anion Gap 15 Blood Urea Nitrogen 11 Creatinine 0.80 Glucose Level 129 # Calcium Level 9.2 Magnesium Level 2.2 Arterial Blood pH (Temp corrected) 7.363 Arterial Blood pCO2 (Temp correct) 46.7 H Arterial Blood pO2 (Temp corrected) 85.6 Arterial Blood HCO3 26.0 Arterial Blood Base Excess 0.1 Arterial Blood Oxygen Saturation 95.4 Arterial Blood Carboxyhemoglobin 0.4 Arterial Blood Methemoglobin 0.3 Blood Gas A-a O2 Differential 363.3 H Oxyhemoglobin Percent 94.7 Total Hemoglobin 13.4 Test 07/25/16 14:03 07/25/16 14:51 07/25/16 16:14 07/25/16 17:03 Bedside Glucose 101 104 127 130 Test 07/25/16 18:00 07/25/16 18:14 07/25/16 19:01 07/25/16 19:19 Blood Gas Specimen Source Blood arterial Arterial Blood Date Drawn 07/25/2016 6:20:26 PM Arterial Blood pH (Temp corrected) 7.344 L Arterial Blood pCO2 (Temp correct) 42.1 Arterial Blood pO2 (Temp corrected) 113.6 H Arterial Blood HCO3 22.4 Arterial Blood Base Excess -3.2 L Arterial Blood Oxygen Saturation 97.4 Charly Test N/A Arterial Blood Gas Puncture Site A-Line Arterial Blood Carboxyhemoglobin 0.2 Arterial Blood Methemoglobin 0.3 Blood Gas A-a O2 Differential 267.9 H Oxyhemoglobin Percent 96.9 Total Hemoglobin 12.6 Blood Gas Temperature 37.0 Blood Gas Respiration Rate 14.0 Blood Gas Actual Respiration Rate 14 Blood Gas Modality VENT - AC FiO2 60.0 Blood Gas Tidal Volume 600.0 Blood Gas Low PEEP Setting 8.0 Blood Gas Notified Whom CW Blood Gas Notified Time 07/25/2016 6:31:27 PM Bedside Glucose 159 150 147 Test 07/25/16 20:15 07/25/16 20:37 07/25/16 21:41 White Blood Count 10.2 # Red Blood Count 3.69 L Hemoglobin 11.8 L Hematocrit 33.8 L Mean Corpuscular Volume 91.6 Mean Corpuscular Hemoglobin 32.0 Mean Corpuscular Hemoglobin Concent 34.9 Red Cell Distribution Width 12.7 Platelet Count 152 Mean Platelet Volume 10.1 Neutrophils % 81.8 H Lymphocytes % 9.8 L Monocytes % 7.6 Eosinophils % 0.1 Basophils % 0.3 Nucleated Red Blood Cells % 0.0 Neutrophils # 8.3 H Lymphocytes # 1.0 Monocytes # 0.8 Eosinophils # 0.0 Basophils # 0.0 Nucleated Red Blood Cells # 0.0 Sodium Level 142 Potassium Level 4.3 Chloride Level 107 Carbon Dioxide Level 25 Anion Gap 14 Blood Urea Nitrogen 10 Creatinine 0.69 Glucose Level 185 Calcium Level 8.6 Bedside Glucose 176 161 Medications Medications Current Medications Metoclopramide HCl (Reglan) 10 mg Q6H PRN IV NAUSEA AND/OR VOMITING; Start at 04:00 Nitroglycerin (Nitroglycerin (Sl Tab) 0.4 Mg) 1 tab Q5M PRN SL CHEST PAIN Last administered on 07/22/16 16:56; Admin Dose 1 TAB; Start 07/22/16 at 04:00 Acetaminophen (Tylenol Tab) 650 mg Q6H PRN PO PAIN LEVEL 1-3 OR FEVER Last administered on 07/25/16 21:09; Admin Dose 650 MG; Start 07/22/16 at 04:00 Morphine Sulfate (morphine) 2 mg Q4H PRN IV PAIN LEVEL 7-10 Last administered on 07/25/16 13:29; Admin Dose 2 MG; Start 07/22/16 at 04:00 Aspirin (Halfprin) 81 mg DAILY PO Last administered on 07/24/16 08:50; Admin Dose 81 MG; Start 07/23/16 at 09:00 Hydralazine HCl (Apresoline) 10 mg Q6H PRN IV SBP>160; Start 07/22/16 at 10:00 Atorvastatin Calcium (Lipitor) 80 mg HS PO Last administered on 07/25/16 20:32 ; Admin Dose 80 MG; Start 07/22/16 at 21:00 Carvedilol (Coreg) 6.25 mg BID PO Last administered on 07/25/16 20:32; Admin Dose 6.25 MG; Start 07/22/16 at 21:00 Alprazolam (Xanax) 0.25 mg Q6H PRN PO ANXIETY; Start 07/22/16 at 11:30 Al Hydrox/Mg Hydrox/Simethicone (Mag-Al Plus) 30 ml Q4H PRN PO GASTROINTESTINAL UPSET; Start 07/22/16 at 11:30 Ondansetron HCl (Zofran Inj) 4 mg Q4H PRN IV NAUSEA AND/OR VOMITING; Start at 11:30 Enoxaparin Sodium (Lovenox) 30 mg Q12 SC Last administered on 07/24/16 08:55; Admin Dose 30 MG; Start 07/22/16 at 21:00; Status Future Hold Enoxaparin Sodium 80 mg 80 mg Q12 SC Last administered on 07/24/16 08:55; Admin Dose 80 MG; Start 07/22/16 at 21:00; Status Future Hold Dopamine HCl/ Dextrose 250 ml @ 8.423 mls/ hr TITRATE IV ; Start 07/25/16 at 13 :30 Potassium Chloride/Calcium Chloride/Dextrose/ Sodium Chloride (KCl/Ca Chloride/ D5-1/4ns) 1,030 ml @ 60 mls/hr [id number] IV Last administered on 07/25/16 16:52 ; Admin Dose 60 MLS/HR; Start 07/25/16 at 16:00 Diagnostic Test (Pha) (Accu-Chek) 1 ea Q1H XX Last administered on 07/25/16 21 :56; Admin Dose 1 EA; Start 07/25/16 at 17:00 Dextrose (D50w Syringe) 25 ml Q15M PRN IV Till BS 80 mg/dL or above x2; Start 07/25/16 at 15:30 Dextrose (D50w Syringe) 50 ml Q15M PRN IV Till BS 80 mg/dL or above x2; Start 07/25/16 at 15:30 Famotidine (Pepcid Iv) 20 mg BID IV Last administered on 07/25/16 20:32; Admin Dose 20 MG; Start 07/25/16 at 21:00 Morphine Sulfate 2 mg 2 mg Q1H PRN IV PAIN Last administered on 07/25/16 17:42 ; Admin Dose 2 MG; Start 07/25/16 at 16:00 Nitroglycerin/ Dextrose (Nitroglycerin 50 Mg/D5W (Pmx)) 250 ml @ 1.5 mls/hr TITRATE IV ; Start 07/25/16 at 16:00 Hydromorphone HCl (Dilaudid) 1 mg Q2 PRN IV PAIN Last administered on t 21:14; Admin Dose 1 MG; Start 07/25/16 at 19:00 MARIA ANTONIA BULLARD Jul 25, 2016 22:51
[2016-07-26] VITALS (47 sets, daily range): BP systolic 104–147; BP diastolic 61–92; PULSE 95–109; RESP 15–34; TEMP 100.2–100.5
[2016-07-26 00:12] LABS: AADO2 Arterial 160.1 mmHg (7.0-24.0); Arterial Base Excess -0.9 mmol/L (-3.0-3); Arterial COHb 0.8 % (0.0-3.0); Arterial Fraction of Oxyhgb 94.2 % (93.0-99.0); Arterial HCO3 24.4 mmol/L (22.0-26.0); Arterial MetHb 0 % (0.0-1.5); Arterial Total Hemglobin 13.7 g/dl (12.0-18.0); Blood Gas PS 6; MODE VENT - CPAP
[2016-07-26] MEDS: ACCU-CHEK XX SCH ×10 (01:06→10:02)
[2016-07-26] MEDS: HYDROmorphONE 1 MG/ML SYG IV PRN ×9 (01:06→23:37)
[2016-07-26 04:43] LABS: Arterial COHb 0.7 % (0.0-3.0); Arterial Fraction of Oxyhgb 92.6 % (93.0-99.0); Arterial HCO3 25.9 mmol/L (22.0-26.0); Arterial MetHb 0.3 % (0.0-1.5); MODE NASAL CANNULA
[2016-07-26 05:08] LABS: ADD SCAN DIFF NO
[2016-07-26 05:20] LABS: BASOPHILS % 0.2 % (0.0-2.0); HEMATOCRIT 35.7 % (42.0-52.0); HEMOGLOBIN 12.2 g/dl (14.0-18.0); LYMPHOCYTES # 1.4 10^3/ul (0.8-2.9); LYMPHOCYTES % 13.3 % (15.0-51.0); MEAN CORPUSCULAR HEMOGLOBIN 31.3 pg (29.0-33.0); MEAN CORPUSCULAR HGB CONC 34.2 g/dl (32.0-37.0); MEAN CORPUSCULAR VOLUME 91.5 fl (82.0-101.0); MEAN PLATELET VOLUME 9.9 fl (7.4-10.4); MONOCYTE # 1.1 10^3/ul (0.3-0.9); MONOCYTES % 10.4 % (0.0-11.0); NEUTROPHIL # 8.1 10^3/ul (1.6-7.5); NEUTROPHILS % 75.9 % (39.0-77.0); PLATELET COUNT 149 10^3/UL (140-415); RED CELL DISTRIBUTION WIDTH 12.9 % (11.5-14.5); WHITE BLOOD COUNT 10.7 10^3/ul (4.8-10.8)
[2016-07-26 05:26] LABS: INR 1.1; PARTIAL THROMBOPLASTIN TIME 37.1 Sec (25.0-35.0); PROTIME 14.2 Sec (12.2-14.2); PT RATIO 1.1
[2016-07-26 06:04] LABS: POTASSIUM 3.7 mmol/L (3.5-5.1)
[2016-07-26 06:07] LABS: CREATININE 0.58 mg/dl (0.61-1.24)
[2016-07-26 06:08] LABS: CALCIUM 8.7 mg/dl (8.4-10.2)
[2016-07-26] MEDS: ACETAMINOPHEN 325 MG TAB PO PRN ×2 (06:23→16:03)
[2016-07-26] MEDS: POTASSIUM CHLORIDE 50 ML IVPB PRN (06:53)
[2016-07-26] MEDS: FAMOTIDINE 20 MG INJ IV SCH ×2 (08:12→21:23)
--- NOTE | 2016-07-26 08:46 | RADRPT ---
PROCEDURE: XR Chest. CLINICAL INDICATION: dyspnea TECHNIQUE: Single portable view of the chest was obtained COMPARISON: Chest 07/25/2016 FINDINGS: Again noted is a right [place]-Jesse catheter with the tip in the right main pulmonary artery. Again no jonathon are sternotomy sutures. Nasogastric tube extends into the upper abdomen poorly demonstrated. T he heart appears enlarged. There is left lower lobe consolidation and probable tiny left pleural ef fusion. No evidence of right pleural effusion. Remainder lungs are clear. There is prominence bon y vasculature which may be due to technique however mild congestive heart failure should be consider ed. No evidence pneumothorax. IMPRESSION: 1. Suboptimal inspiration. 2. Possible mild congestive heart failure. 3. Left lower lobe consolidation may be due to atelectasis to rule out infiltrate. Probable tiny l eft pleural effusion. RPTAT:AAJJ Physician Wallace Date Time Electronically viewed and signed by Physician Wallace on 07/26/2016 08:45 BM/
[2016-07-26] MEDS: ASPIRIN (EC) 81 MG TAB PO SCH (09:00)
[2016-07-26] MEDS: POTASSIUM CHLORIDE 40 MEQ, CALCIUM CHLORIDE 10% 1 GM in DEXTROSE 5%-0.225% NACL 1,000 ML IV SCH (09:10)
[2016-07-26] MEDS ORDERED: MAGNESIUM SULFATE 1 GM/D5W 100 ML IVPB ONE (09:30)
[2016-07-26] MEDS: FUROSEMIDE 40 MG INJ IV SCH (09:30)
[2016-07-26] MEDS: INSULIN GLARGINE [LANtus] 3 ML PEN SC SCH (10:32)
[2016-07-26] MEDS: INSULIN ASPART [NOVOLOG] 3 ML PEN SC SCH ×5 (11:12→21:31)
[2016-07-26] MEDS ORDERED: GLUCOSE GEL 15 GRAM TUBE BUCCAL PRN (12:00)
[2016-07-26] MEDS ORDERED: GLUCAGON 1 MG INJ IM PRN (12:00)
[2016-07-26] MEDS ORDERED: GLUCOSE GEL 15 GRAM TUBE PO PRN ×2 (12:00)
[2016-07-26] MEDS ORDERED: DEXTROSE 50% 50 ML SYRINGE IV PRN ×2 (12:00)
[2016-07-26 14:37] LABS: POTASSIUM 3.7 mmol/L (3.5-5.1)
[2016-07-26 14:40] LABS: MAGNESIUM 1.9 mg/dl (1.7-2.5)
--- NOTE | 2016-07-26 15:29 | PN ---
Date/Time of Note Date/Time of Note DATE: 07/26/16 TIME: 15:25 Assessment/Plan VTE Prophylaxis VTE Prophylaxis Intervention: LMWH Lines/Catheters IV Catheter Type (from Nrs): Peripheral IV Urinary Cath still in place: Yes Reason Cath still needed: other (indicate) (monitor I&O) Assessment/Plan Chief Complaint/Hosp Course Assessment and plan 1. Non-ST elevated myocardial infarction. Patient status post cardiac catheterization with 2 vessel coronary artery disease. Patient also status post CABG. Continue postop care. Continue with cardiology and CT surgeon recommendations 2. Type 2 diabetes. A1c of 10.3. Continue insulin regimen. Adjust as needed 3. This of anemia. Continue on statin medication 4. Essential hypertension. Continue antihypertensives and adjust as needed 5. Vitamin D deficiency. Patient resumed on vitamin D supplement DVT prophylaxis: Lovenox Disposition and plan: Continue postop care. Transfer to telemetry when cleared by consultants Discussed plan of care with Dr. Leiva Problems: Subjective 24 Hr Interval Summary Free Text/Dictation Working with physical therapy during visit. No apparent distress Exam/Review of Systems Vital Signs Vitals Vital Signs Date Time Temp Pulse Resp B/P Pulse Ox O2 Delivery O2 Flow Rate FiO2 07/26/16 13:00 101 22 118/81 97 Nasal Cannula 6.0 07/26/16 12:00 100.4 07/25/16 23:20 40 Intake and Output 07/25/16 07/25/16 07/26/16 15:00 23:00 07:00 Intake Total 3309 ml 552.19 ml 505.5 ml Output Total 975 ml 1456 ml 868 ml Balance 2334 ml -903.81 ml -362.5 ml Exam General: No apparent distress Eyes: pupils equal round, Anicteric sclera Neck: Supple nontender, no JVD Cardiac: S1, S2 auscultated, regular rhythm and rate Pulmonary: Minimally diminished lung bases GI: Abdomen soft nontender nondistended, bowel sounds active Extremities: Minimal edema bilateral lower extremities. Noted with left lower extremity dressing Skin: Surgical site on chest clean dry and intact Results Result Diagram: 07/26/16 1410 07/26/16 1410 Results 24 hrs Laboratory Tests Test 07/25/16 16:14 07/25/16 17:03 07/25/16 18:00 07/25/16 18:14 Bedside Glucose 127 130 159 Blood Gas Specimen Source Blood arterial Arterial Blood Date Drawn 07/25/2016 6:20:26 PM Arterial Blood pH (Temp corrected) 7.344 L Arterial Blood pCO2 (Temp correct) 42.1 Arterial Blood pO2 (Temp corrected) 113.6 H Arterial Blood HCO3 22.4 Arterial Blood Base Excess -3.2 L Arterial Blood Oxygen Saturation 97.4 Charly Test N/A Arterial Blood Gas Puncture Site A-Line Arterial Blood Carboxyhemoglobin 0.2 Arterial Blood Methemoglobin 0.3 Blood Gas A-a O2 Differential 267.9 H Oxyhemoglobin Percent 96.9 Total Hemoglobin 12.6 Blood Gas Temperature 37.0 Blood Gas Respiration Rate 14.0 Blood Gas Actual Respiration Rate 14 Blood Gas Modality VENT - AC FiO2 60.0 Blood Gas Tidal Volume 600.0 Blood Gas Low PEEP Setting 8.0 Blood Gas Notified Whom CW Blood Gas Notified Time 07/25/2016 6:31:27 PM Test 07/25/16 19:01 07/25/16 19:19 07/25/16 20:15 07/25/16 20:37 Bedside Glucose 150 147 176 White Blood Count 10.2 # Red Blood Count 3.69 L Hemoglobin 11.8 L Hematocrit 33.8 L Mean Corpuscular Volume 91.6 Mean Corpuscular Hemoglobin 32.0 Mean Corpuscular Hemoglobin Concent 34.9 Red Cell Distribution Width 12.7 Platelet Count 152 Mean Platelet Volume 10.1 Neutrophils % 81.8 H Lymphocytes % 9.8 L Monocytes % 7.6 Eosinophils % 0.1 Basophils % 0.3 Nucleated Red Blood Cells % 0.0 Neutrophils # 8.3 H Lymphocytes # 1.0 Monocytes # 0.8 Eosinophils # 0.0 Basophils # 0.0 Nucleated Red Blood Cells # 0.0 Sodium Level 142 Potassium Level 4.3 Chloride Level 107 Carbon Dioxide Level 25 Anion Gap 14 Blood Urea Nitrogen 10 Creatinine 0.69 Glucose Level 185 Calcium Level 8.6 Test 07/25/16 21:41 07/25/16 23:08 07/25/16 23:49 07/25/16 23:57 Bedside Glucose 161 146 165 Blood Gas Specimen Source Blood arterial Arterial Blood Date Drawn 07/26/2016 12:00:44 AM Arterial Blood pH (Temp corrected) 7.375 Arterial Blood pCO2 (Temp correct) 42.6 Arterial Blood pO2 (Temp corrected) 76.1 L Arterial Blood HCO3 24.4 Arterial Blood Base Excess -0.9 Arterial Blood Oxygen Saturation 95.0 Charly Test N/A Arterial Blood Gas Puncture Site A-Line Arterial Blood Carboxyhemoglobin 0.8 Arterial Blood Methemoglobin 0 Blood Gas A-a O2 Differential 160.1 H Oxyhemoglobin Percent 94.2 Total Hemoglobin 13.7 Blood Gas Temperature 37.0 Blood Gas Actual Respiration Rate 19 Blood Gas Modality VENT - CPAP FiO2 40.0 Blood Gas Inspiratory Pressure 12.0 Blood Gas Pressure Support 6 Blood Gas Notified Whom KM Blood Gas Notified Time 07/26/2016 12:11:12 AM Test 07/26/16 01:10 07/26/16 02:02 07/26/16 02:48 07/26/16 04:49 Bedside Glucose 155 151 157 160 Test 07/26/16 05:00 07/26/16 05:48 07/26/16 06:59 07/26/16 07:54 White Blood Count 10.7 Red Blood Count 3.90 L Hemoglobin 12.2 L Hematocrit 35.7 L Mean Corpuscular Volume 91.5 Mean Corpuscular Hemoglobin 31.3 Mean Corpuscular Hemoglobin Concent 34.2 Red Cell Distribution Width 12.9 Platelet Count 149 Mean Platelet Volume 9.9 Neutrophils % 75.9 Lymphocytes % 13.3 L Monocytes % 10.4 Eosinophils % 0.0 Basophils % 0.2 Nucleated Red Blood Cells % 0.0 Neutrophils # 8.1 H Lymphocytes # 1.4 Monocytes # 1.1 H Eosinophils # 0.0 Basophils # 0.0 Nucleated Red Blood Cells # 0.0 Prothrombin Time 14.2 Prothrombin Time Ratio 1.1 INR International Normalized Ratio 1.10 Activated Partial Thromboplast Time 37.1 H Blood Gas Specimen Source Blood arterial Arterial Blood Date Drawn 07/26/2016 4:30:05 AM Arterial Blood pH (Temp corrected) 7.405 Arterial Blood pCO2 (Temp correct) 42.3 Arterial Blood pO2 (Temp corrected) 67.3 L Arterial Blood HCO3 25.9 Arterial Blood Base Excess 1.0 Arterial Blood Oxygen Saturation 93.5 L Charly Test N/A Arterial Blood Gas Puncture Site A-Line Arterial Blood Carboxyhemoglobin 0.7 Arterial Blood Methemoglobin 0.3 Blood Gas A-a O2 Differential 162.0 H Oxyhemoglobin Percent 92.6 L Total Hemoglobin 13.0 Blood Gas Temperature 37.0 Blood Gas Modality NASAL CANNULA FiO2 39.0 Blood Gas Notified Whom LORAD Blood Gas Notified Time 07/26/2016 4:43:08 AM Sodium Level 139 Potassium Level 3.7 Chloride Level 105 Carbon Dioxide Level 25 Anion Gap 13 Blood Urea Nitrogen 9 Creatinine 0.58 L Glucose Level 169 Calcium Level 8.7 Magnesium Level 1.7 Bedside Glucose 155 142 150 Test 07/26/16 09:59 07/26/16 11:04 07/26/16 14:10 Bedside Glucose 172 204 Hematocrit 37.5 L Potassium Level 3.7 Magnesium Level 1.9 Medications Medications Current Medications Metoclopramide HCl (Reglan) 10 mg Q6H PRN IV NAUSEA AND/OR VOMITING; Start at 04:00 Nitroglycerin (Nitroglycerin (Sl Tab) 0.4 Mg) 1 tab Q5M PRN SL CHEST PAIN Last administered on 07/22/16 16:56; Admin Dose 1 TAB; Start 07/22/16 at 04:00 Acetaminophen (Tylenol Tab) 650 mg Q6H PRN PO PAIN LEVEL 1-3 OR FEVER Last administered on 07/26/16 06:23; Admin Dose 650 MG; Start 07/22/16 at 04:00 Morphine Sulfate (morphine) 2 mg Q4H PRN IV PAIN LEVEL 7-10 Last administered on 07/25/16 13:29; Admin Dose 2 MG; Start 07/22/16 at 04:00 Aspirin (Halfprin) 81 mg DAILY PO Last administered on 07/26/16 09:00; Admin Dose 81 MG; Start 07/23/16 at 09:00 Hydralazine HCl (Apresoline) 10 mg Q6H PRN IV SBP>160; Start 07/22/16 at 10:00 Atorvastatin Calcium (Lipitor) 80 mg HS PO Last administered on 07/25/16 20:32 ; Admin Dose 80 MG; Start 07/22/16 at 21:00 Carvedilol (Coreg) 6.25 mg BID PO Last administered on 07/26/16 09:00; Admin Dose 6.25 MG; Start 07/22/16 at 21:00 Alprazolam (Xanax) 0.25 mg Q6H PRN PO ANXIETY; Start 07/22/16 at 11:30 Al Hydrox/Mg Hydrox/Simethicone (Mag-Al Plus) 30 ml Q4H PRN PO GASTROINTESTINAL UPSET; Start 07/22/16 at 11:30 Ondansetron HCl (Zofran Inj) 4 mg Q4H PRN IV NAUSEA AND/OR VOMITING; Start at 11:30 Enoxaparin Sodium (Lovenox) 30 mg Q12 SC Last administered on 07/24/16 08:55; Admin Dose 30 MG; Start 07/22/16 at 21:00; Status Future Hold Enoxaparin Sodium 80 mg 80 mg Q12 SC Last administered on 07/24/16 08:55; Admin Dose 80 MG; Start 07/22/16 at 21:00; Status Future Hold Dopamine HCl/ Dextrose 250 ml @ 8.423 mls/ hr TITRATE IV ; Start 07/25/16 at 13 :30 Famotidine (Pepcid Iv) 20 mg BID IV Last administered on 07/26/16 08:12; Admin Dose 20 MG; Start 07/25/16 at 21:00 Morphine Sulfate 2 mg 2 mg Q1H PRN IV PAIN Last administered on 07/25/16 17:42 ; Admin Dose 2 MG; Start 07/25/16 at 16:00 Nitroglycerin/ Dextrose (Nitroglycerin 50 Mg/D5W (Pmx)) 250 ml @ 1.5 mls/hr TITRATE IV ; Start 07/25/16 at 16:00 Hydromorphone HCl (Dilaudid) 1 mg Q2 PRN IV PAIN Last administered on 13:54; Admin Dose 1 MG; Start 07/25/16 at 19:00 Furosemide (Lasix) 40 mg DAILY IV Last administered on 07/26/16 09:30; Admin Dose 40 MG; Start 07/26/16 at 09:30 Diagnostic Test (Pha) (Accu-Chek) 1 ea 02 XX ; Start 07/27/16 at 02:00 Insulin Glargine (Lantus) 27 unit DAILY@08 SC Last administered on 07/26/16 10 :32; Admin Dose 27 UNIT; Start 07/26/16 at 10:30 Miscellaneous Information 1 ea NOTE XX ; Start 07/26/16 at 12:00 Glucose (Glutose) 15 gm Q15M PRN PO DECREASED GLUCOSE; Start 07/26/16 at 12:00 Glucose (Glutose) 22.5 gm Q15M PRN PO DECREASED GLUCOSE; Start 07/26/16 at 12: 00 Dextrose (D50w Syringe) 25 ml Q15M PRN IV DECREASED GLUCOSE; Start 07/26/16 at 12:00 Dextrose (D50w Syringe) 50 ml Q15M PRN IV DECREASED GLUCOSE; Start 07/26/16 at 12:00 Glucagon (Glucagen) 1 mg Q15M PRN IM DECREASED GLUCOSE; Start 07/26/16 at 12:00 Glucose (Glutose) 15 gm Q15M PRN BUCCAL DECREASED GLUCOSE; Start 07/26/16 at 12 :00 MARIA ANTONIA BULLARD Jul 26, 2016 15:29
--- NOTE | 2016-07-26 17:05 | CONS ---
Date/Time of Note Date/Time of Note DATE: 07/26/16 TIME: 17:03 Assessment/Plan Assessment/Plan Additional Assessment/Plan Non-ST elevation DE CAD status post CABG 07/25/2016 Preserved ejection fraction Acute decompensated diastolic congestive heart failure Diabetes Hypertension Dyslipidemia -Patient doing well post surgery. Continue aspirin and statin therapy, beta- andrew as heart rate and blood pressure permits. Diuretics as renal function and blood pressure permits. Maintain potassium above 4.0 and magnesium above 2.0. Encourage incentive spirometry and physical therapy. Consultation Date/Type/Reason Admit Date/Time Jul 22, 2016 at 14:00 Initial Consult Date Type of Consultation: cv 24 HR Interval Summary Free Text/Dictation Patient doing better today, undergoing physical therapy. Has mild chest wall pain. Denies shortness of breath Exam/Review of Systems Vital Signs Vitals Vital Signs Date Time Temp Pulse Resp B/P Pulse Ox O2 Delivery O2 Flow Rate FiO2 07/26/16 16:51 124/83 07/26/16 16:00 107 07/26/16 16:00 101.3 28 98 Nasal Cannula 6.0 07/25/16 23:20 40 Intake and Output 07/25/16 07/25/16 07/26/16 15:00 23:00 07:00 Intake Total 3309 ml 552.19 ml 505.5 ml Output Total 975 ml 1456 ml 868 ml Balance 2334 ml -903.81 ml -362.5 ml Exam No apparent distress, undergoing physical therapy Constitutional: alert, oriented Head: normocephalic Neck: supple Respiratory: other (Coarse breath sounds bilaterally, no wheezing) Cardiovascular: other (S1-S2 heard), regular rate and rhythm Gastrointestinal: bowel sounds, non-tender, other (No guarding), soft Extremities: edema (Trace), other (No cyanosis) Results Result Diagram: 07/26/16 1410 07/26/16 1410 Results 24 hrs Laboratory Tests Test 07/25/16 18:00 07/25/16 18:14 07/25/16 19:01 07/25/16 19:19 Blood Gas Specimen Source Blood arterial Arterial Blood Date Drawn 07/25/2016 6:20:26 PM Arterial Blood pH (Temp corrected) 7.344 L Arterial Blood pCO2 (Temp correct) 42.1 Arterial Blood pO2 (Temp corrected) 113.6 H Arterial Blood HCO3 22.4 Arterial Blood Base Excess -3.2 L Arterial Blood Oxygen Saturation 97.4 Charly Test N/A Arterial Blood Gas Puncture Site A-Line Arterial Blood Carboxyhemoglobin 0.2 Arterial Blood Methemoglobin 0.3 Blood Gas A-a O2 Differential 267.9 H Oxyhemoglobin Percent 96.9 Total Hemoglobin 12.6 Blood Gas Temperature 37.0 Blood Gas Respiration Rate 14.0 Blood Gas Actual Respiration Rate 14 Blood Gas Modality VENT - AC FiO2 60.0 Blood Gas Tidal Volume 600.0 Blood Gas Low PEEP Setting 8.0 Blood Gas Notified Whom CW Blood Gas Notified Time 07/25/2016 6:31:27 PM Bedside Glucose 159 150 147 Test 07/25/16 20:15 07/25/16 20:37 07/25/16 21:41 07/25/16 23:08 White Blood Count 10.2 # Red Blood Count 3.69 L Hemoglobin 11.8 L Hematocrit 33.8 L Mean Corpuscular Volume 91.6 Mean Corpuscular Hemoglobin 32.0 Mean Corpuscular Hemoglobin Concent 34.9 Red Cell Distribution Width 12.7 Platelet Count 152 Mean Platelet Volume 10.1 Neutrophils % 81.8 H Lymphocytes % 9.8 L Monocytes % 7.6 Eosinophils % 0.1 Basophils % 0.3 Nucleated Red Blood Cells % 0.0 Neutrophils # 8.3 H Lymphocytes # 1.0 Monocytes # 0.8 Eosinophils # 0.0 Basophils # 0.0 Nucleated Red Blood Cells # 0.0 Sodium Level 142 Potassium Level 4.3 Chloride Level 107 Carbon Dioxide Level 25 Anion Gap 14 Blood Urea Nitrogen 10 Creatinine 0.69 Glucose Level 185 Calcium Level 8.6 Bedside Glucose 176 161 146 Test 07/25/16 23:49 07/25/16 23:57 07/26/16 01:10 07/26/16 02:02 Bedside Glucose 165 155 151 Blood Gas Specimen Source Blood arterial Arterial Blood Date Drawn 07/26/2016 12:00:44 AM Arterial Blood pH (Temp corrected) 7.375 Arterial Blood pCO2 (Temp correct) 42.6 Arterial Blood pO2 (Temp corrected) 76.1 L Arterial Blood HCO3 24.4 Arterial Blood Base Excess -0.9 Arterial Blood Oxygen Saturation 95.0 Charly Test N/A Arterial Blood Gas Puncture Site A-Line Arterial Blood Carboxyhemoglobin 0.8 Arterial Blood Methemoglobin 0 Blood Gas A-a O2 Differential 160.1 H Oxyhemoglobin Percent 94.2 Total Hemoglobin 13.7 Blood Gas Temperature 37.0 Blood Gas Actual Respiration Rate 19 Blood Gas Modality VENT - CPAP FiO2 40.0 Blood Gas Inspiratory Pressure 12.0 Blood Gas Pressure Support 6 Blood Gas Notified Whom [place] Blood Gas Notified Time 07/26/2016 12:11:12 AM Test 07/26/16 02:48 07/26/16 04:49 07/26/16 05:00 07/26/16 05:48 Bedside Glucose 157 160 155 White Blood Count 10.7 Red Blood Count 3.90 L Hemoglobin 12.2 L Hematocrit 35.7 L Mean Corpuscular Volume 91.5 Mean Corpuscular Hemoglobin 31.3 Mean Corpuscular Hemoglobin Concent 34.2 Red Cell Distribution Width 12.9 Platelet Count 149 Mean Platelet Volume 9.9 Neutrophils % 75.9 Lymphocytes % 13.3 L Monocytes % 10.4 Eosinophils % 0.0 Basophils % 0.2 Nucleated Red Blood Cells % 0.0 Neutrophils # 8.1 H Lymphocytes # 1.4 Monocytes # 1.1 H Eosinophils # 0.0 Basophils # 0.0 Nucleated Red Blood Cells # 0.0 Prothrombin Time 14.2 Prothrombin Time Ratio 1.1 INR International Normalized Ratio 1.10 Activated Partial Thromboplast Time 37.1 H Blood Gas Specimen Source Blood arterial Arterial Blood Date Drawn 07/26/2016 4:30:05 AM Arterial Blood pH (Temp corrected) 7.405 Arterial Blood pCO2 (Temp correct) 42.3 Arterial Blood pO2 (Temp corrected) 67.3 L Arterial Blood HCO3 25.9 Arterial Blood Base Excess 1.0 Arterial Blood Oxygen Saturation 93.5 L Charly Test N/A Arterial Blood Gas Puncture Site A-Line Arterial Blood Carboxyhemoglobin 0.7 Arterial Blood Methemoglobin 0.3 Blood Gas A-a O2 Differential 162.0 H Oxyhemoglobin Percent 92.6 L Total Hemoglobin 13.0 Blood Gas Temperature 37.0 Blood Gas Modality NASAL CANNULA FiO2 39.0 Blood Gas Notified Whom KRUNAL Blood Gas Notified Time 07/26/2016 4:43:08 AM Sodium Level 139 Potassium Level 3.7 Chloride Level 105 Carbon Dioxide Level 25 Anion Gap 13 Blood Urea Nitrogen 9 Creatinine 0.58 L Glucose Level 169 Calcium Level 8.7 Magnesium Level 1.7 Test 07/26/16 06:59 07/26/16 07:54 07/26/16 09:59 07/26/16 11:04 Bedside Glucose 142 150 172 204 Test 07/26/16 14:10 Hematocrit 37.5 L Potassium Level 3.7 Magnesium Level 1.9 Medications Medications Current Medications Metoclopramide HCl (Reglan) 10 mg Q6H PRN IV NAUSEA AND/OR VOMITING; Start at 04:00 Nitroglycerin (Nitroglycerin (Sl Tab) 0.4 Mg) 1 tab Q5M PRN SL CHEST PAIN Last administered on 07/22/16 16:56; Admin Dose 1 TAB; Start 07/22/16 at 04:00 Acetaminophen (Tylenol Tab) 650 mg Q6H PRN PO PAIN LEVEL 1-3 OR FEVER Last administered on 07/26/16 16:03; Admin Dose 650 MG; Start 07/22/16 at 04:00 Morphine Sulfate (morphine) 2 mg Q4H PRN IV PAIN LEVEL 7-10 Last administered on 07/25/16 13:29; Admin Dose 2 MG; Start 07/22/16 at 04:00 Aspirin (Halfprin) 81 mg DAILY PO Last administered on 07/26/16 09:00; Admin Dose 81 MG; Start 07/23/16 at 09:00 Hydralazine HCl (Apresoline) 10 mg Q6H PRN IV SBP>160; Start 07/22/16 at 10:00 Atorvastatin Calcium (Lipitor) 80 mg HS PO Last administered on 07/25/16 20:32 ; Admin Dose 80 MG; Start 07/22/16 at 21:00 Carvedilol (Coreg) 6.25 mg BID PO Last administered on 07/26/16 09:00; Admin Dose 6.25 MG; Start 07/22/16 at 21:00 Alprazolam (Xanax) 0.25 mg Q6H PRN PO ANXIETY; Start 07/22/16 at 11:30 Al Hydrox/Mg Hydrox/Simethicone (Mag-Al Plus) 30 ml Q4H PRN PO GASTROINTESTINAL UPSET; Start 07/22/16 at 11:30 Ondansetron HCl (Zofran Inj) 4 mg Q4H PRN IV NAUSEA AND/OR VOMITING; Start at 11:30 Enoxaparin Sodium (Lovenox) 30 mg Q12 SC Last administered on 07/24/16 08:55; Admin Dose 30 MG; Start 07/22/16 at 21:00; Status Future Hold Enoxaparin Sodium 80 mg 80 mg Q12 SC Last administered on 07/24/16 08:55; Admin Dose 80 MG; Start 07/22/16 at 21:00; Status Future Hold Dopamine HCl/ Dextrose 250 ml @ 8.423 mls/ hr TITRATE IV ; Start 07/25/16 at 13 :30 Famotidine (Pepcid Iv) 20 mg BID IV Last administered on 07/26/16 08:12; Admin Dose 20 MG; Start 07/25/16 at 21:00 Morphine Sulfate 2 mg 2 mg Q1H PRN IV PAIN Last administered on 07/25/16 17:42 ; Admin Dose 2 MG; Start 07/25/16 at 16:00 Nitroglycerin/ Dextrose (Nitroglycerin 50 Mg/D5W (Pmx)) 250 ml @ 1.5 mls/hr TITRATE IV ; Start 07/25/16 at 16:00 Hydromorphone HCl (Dilaudid) 1 mg Q2 PRN IV PAIN Last administered on 16:02; Admin Dose 1 MG; Start 07/25/16 at 19:00 Furosemide (Lasix) 40 mg DAILY IV Last administered on 07/26/16 09:30; Admin Dose 40 MG; Start 07/26/16 at 09:30 Diagnostic Test (Pha) (Accu-Chek) 1 ea 02 XX ; Start 07/27/16 at 02:00 Insulin Glargine (Lantus) 27 unit DAILY@08 SC Last administered on 07/26/16 10 :32; Admin Dose 27 UNIT; Start 07/26/16 at 10:30 Miscellaneous Information 1 ea NOTE XX ; Start 07/26/16 at 12:00 Glucose (Glutose) 15 gm Q15M PRN PO DECREASED GLUCOSE; Start 07/26/16 at 12:00 Glucose (Glutose) 22.5 gm Q15M PRN PO DECREASED GLUCOSE; Start 07/26/16 at 12: 00 Dextrose (D50w Syringe) 25 ml Q15M PRN IV DECREASED GLUCOSE; Start 07/26/16 at 12:00 Dextrose (D50w Syringe) 50 ml Q15M PRN IV DECREASED GLUCOSE; Start 07/26/16 at 12:00 Glucagon (Glucagen) 1 mg Q15M PRN IM DECREASED GLUCOSE; Start 07/26/16 at 12:00 Glucose (Glutose) 15 gm Q15M PRN BUCCAL DECREASED GLUCOSE; Start 07/26/16 at 12 :00 Tucker Fuller DO Jul 26, 2016 17:05
--- NOTE | 2016-07-26 17:53 | PN ---
Date/Time of Note Date/Time of Note DATE: 07/26/16 TIME: 17:52 Assessment/Plan Lines/Catheters IV Catheter Type (from Nrsg): Peripheral IV Maynard in Place (from Nrsg): Yes Assessment/Plan Chief Complaint/Hosp Course IMPRESSION: Coronary artery disease. SP coronary artery bypass grafting will DC CT tomorrow Problems: Subjective 24 Hr Interval Summary Constitutional: improved Pain Control: mild Exam/Review of Systems Vital Signs Vitals Vital Signs Date Time Temp Pulse Resp B/P Pulse Ox O2 Delivery O2 Flow Rate FiO2 07/26/16 16:51 124/83 07/26/16 16:00 107 07/26/16 16:00 101.3 28 98 Nasal Cannula 6.0 07/25/16 23:20 40 Intake and Output 07/25/16 07/25/16 07/26/16 15:00 23:00 07:00 Intake Total 3309 ml 552.19 ml 505.5 ml Output Total 975 ml 1456 ml 868 ml Balance 2334 ml -903.81 ml -362.5 ml Exam ENMT: mucosa pink and moist, nl external ears & nose, nl lips & teeth, nl nasal mucosa & septum Neck: non-tender, supple Respiratory: clear to auscultation, normal air movement Cardiovascular: nl pulses, regular rate and rhythm Results Result Diagram: 07/26/16 1410 07/26/16 1410 MILAN AKHTAR MD Jul 26, 2016 17:53
[2016-07-26] MEDS: ATORVASTATIN 80 MG TAB PO SCH (21:23)
[2016-07-27] VITALS (16 sets, daily range): BP systolic 111–139; BP diastolic 73–106; PULSE 102–112; RESP 12–26
[2016-07-27] MEDS: HYDROmorphONE 1 MG/ML SYG IV PRN ×6 (01:41→19:41)
[2016-07-27] MEDS: ACCU-CHEK XX SCH (02:47)
[2016-07-27 04:56] LABS: ADD SCAN DIFF NO
[2016-07-27 05:00] LABS: BASOPHILS % 0.1 % (0.0-2.0); EOSINOPHILS % 0.1 % (0.0-7.0); HEMATOCRIT 38.3 % (42.0-52.0); HEMOGLOBIN 12.6 g/dl (14.0-18.0); LYMPHOCYTES # 1.9 10^3/ul (0.8-2.9); LYMPHOCYTES % 13.4 % (15.0-51.0); MEAN CORPUSCULAR HEMOGLOBIN 30.5 pg (29.0-33.0); MEAN CORPUSCULAR HGB CONC 32.9 g/dl (32.0-37.0); MEAN CORPUSCULAR VOLUME 92.7 fl (82.0-101.0); MEAN PLATELET VOLUME 10.2 fl (7.4-10.4); MONOCYTE # 1.4 10^3/ul (0.3-0.9); MONOCYTES % 10.2 % (0.0-11.0); NEUTROPHIL # 10.6 10^3/ul (1.6-7.5); NEUTROPHILS % 75.6 % (39.0-77.0); PLATELET COUNT 169 10^3/UL (140-415); RED BLOOD COUNT 4.13 10^6/ul (4.70-6.10); RED CELL DISTRIBUTION WIDTH 12.8 % (11.5-14.5)
[2016-07-27 05:15] LABS: ALBUMIN 3.6 g/dl (3.3-4.9)
[2016-07-27 05:16] LABS: POTASSIUM 3.8 mmol/L (3.5-5.1)
[2016-07-27 05:18] LABS: ALBUMIN/GLOBULIN RATIO 1.16; BILIRUBIN,INDIRECT 0.9 mg/dl (0-1.1); BILIRUBIN,TOTAL 0.9 mg/dl (0.2-1.3); CREATININE 0.63 mg/dl (0.61-1.24); TOTAL PROTEIN 6.7 g/dl (6.1-8.1)
[2016-07-27 05:19] LABS: CALCIUM 8.5 mg/dl (8.4-10.2)
[2016-07-27] MEDS: POTASSIUM CHLORIDE 50 ML IVPB PRN (07:00)
[2016-07-27] MEDS ORDERED: INSULIN GLARGINE [LANtus] 3 ML PEN SC SCH (08:00)
[2016-07-27] MEDS: FUROSEMIDE 40 MG INJ IV SCH (08:51)
[2016-07-27] MEDS: ASPIRIN (EC) 81 MG TAB PO SCH (08:52)
[2016-07-27] MEDS: INSULIN ASPART [NOVOLOG] 3 ML PEN SC SCH ×7 (08:56→21:24)
[2016-07-27] MEDS: INSULIN GLARGINE [LANtus] 3 ML PEN SC SCH (08:57)
[2016-07-27] MEDS: FAMOTIDINE 20 MG INJ IV SCH ×2 (09:10→21:21)
--- NOTE | 2016-07-27 09:55 | PN ---
Date/Time of Note Date/Time of Note DATE: 07/27/16 TIME: 09:54 Assessment/Plan Lines/Catheters IV Catheter Type (from Nrs): Cordis Maynard in Place (from Nrs): No Assessment/Plan Chief Complaint/Hosp Course IMPRESSION: Coronary artery disease. SP coronary artery bypass grafting CT [address] when drainage is lower Problems: Subjective 24 Hr Interval Summary Constitutional: improved Pain Control: mild Exam/Review of Systems Vital Signs Vitals Vital Signs Date Time Temp Pulse Resp B/P Pulse Ox O2 Delivery O2 Flow Rate FiO2 07/27/16 04:00 99.2 111 22 135/83 94 4.0 07/27/16 00:00 Nasal Cannula 07/25/16 23:20 40 Intake and Output 07/26/16 07/26/16 07/27/16 15:00 23:00 07:00 Intake Total 759.0 ml 180 ml Output Total 1135 ml 410 ml 345 ml Balance -376.0 ml -410 ml -165 ml Exam Neck: non-tender, supple Respiratory: clear to auscultation, normal air movement Cardiovascular: nl pulses, regular rate and rhythm Gastrointestinal: nl liver, spleen, non-tender, soft Results Result Diagram: 07/27/16 0400 07/27/16399 MILAN AKHTAR MD Jul 27, 2016 09:55
--- NOTE | 2016-07-27 11:15 | PN ---
Date/Time of Note Date/Time of Note DATE: 07/27/16 TIME: 11:09 Assessment/Plan VTE Prophylaxis VTE Prophylaxis Intervention: LMWH Lines/Catheters IV Catheter Type (from [facility] Urinary Cath still in place: No Assessment/Plan Chief Complaint/Hosp Course 1. Non-ST elevated myocardial infarction. Patient status post cardiac catheterization with 2 vessel coronary artery disease. Patient also status post CABG. Continue postop care. Continue with cardiology and CT surgeon recommendations. chest tube in place 2. Type 2 diabetes. A1c of 10.3. Was placed on insulin drip. We'll transition off in a.m. 3. Dyslipidemia. Continue on statin medication 4. Essential hypertension. Continue antihypertensives and adjust as needed 5. Vitamin D deficiency. cont on vit d supplement DVT prophylaxis: Lovenox Disposition and plan: Continue postop care. transfer to telemetry Discussed plan of care with Dr. Leiva Problems: Subjective 24 Hr Interval Summary Free Text/Dictation no s/s of distress. comfortable at this time. family at bedside Exam/Review of Systems Vital Signs Vitals Vital Signs Date Time Temp Pulse Resp B/P Pulse Ox O2 Delivery O2 Flow Rate FiO2 07/27/16 10:00 106 22 125/106 88 4.0 07/27/16 08:00 Nasal Cannula 07/27/16 04:00 99.2 07/25/16 23:20 40 Intake and Output 07/26/16 07/26/16 07/27/16 15:00 23:00 07:00 Intake Total 759.0 ml 180 ml Output Total 1135 ml 410 ml 345 ml Balance -376.0 ml -410 ml -165 ml Exam General: No apparent distress Eyes: pupils equal round, Anicteric sclera Neck: Supple nontender, no JVD Cardiac: regular rate. chest tube in place. Pulmonary: Minimally diminished lung bases. no wheezing/rhonchi GI: Abdomen soft nontender nondistended, bowel sounds active Extremities: Minimal edema bilateral lower extremities. LLE surgical site cdi Skin: Surgical site on chest clean dry and intact Results Result Diagram: 07/27/16 0400 07/27/16 0400 Results 24 hrs Laboratory Tests Test 07/26/16 14:10 07/26/16 17:13 07/26/16 21:28 07/27/16 01:45 Hematocrit 37.5 L Potassium Level 3.7 Magnesium Level 1.9 Bedside Glucose 198 200 191 Test 07/27/16 04:00 07/27/16 08:30 White Blood Count 14.0 #H Red Blood Count 4.13 L Hemoglobin 12.6 L Hematocrit 38.3 L Mean Corpuscular Volume 92.7 Mean Corpuscular Hemoglobin 30.5 Mean Corpuscular Hemoglobin Concent 32.9 Red Cell Distribution Width 12.8 Platelet Count 169 Mean Platelet Volume 10.2 Neutrophils % 75.6 Lymphocytes % 13.4 L Monocytes % 10.2 Eosinophils % 0.1 Basophils % 0.1 Nucleated Red Blood Cells % 0.0 Neutrophils # 10.6 H Lymphocytes # 1.9 Monocytes # 1.4 H Eosinophils # 0.0 Basophils # 0.0 Nucleated Red Blood Cells # 0.0 Sodium Level 137 Potassium Level 3.8 Chloride Level 100 Carbon Dioxide Level 29 Anion Gap 12 Blood Urea Nitrogen 11 Creatinine 0.63 Glucose Level 209 Calcium Level 8.5 Total Bilirubin 0.9 Direct Bilirubin 0.00 Indirect Bilirubin 0.9 Aspartate Amino Transf (AST/SGOT) 49 H Alanine Aminotransferase (ALT/SGPT) 44 Alkaline Phosphatase 129 H Total Protein 6.7 Albumin 3.6 Globulin 3.10 Albumin/Globulin Ratio 1.16 Bedside Glucose 230 H Medications Medications Current Medications Metoclopramide HCl (Reglan) 10 mg Q6H PRN IV NAUSEA AND/OR VOMITING; Start at 04:00 Nitroglycerin (Nitroglycerin (Sl Tab) 0.4 Mg) 1 tab Q5M PRN SL CHEST PAIN Last administered on 07/22/16 16:56; Admin Dose 1 TAB; Start 07/22/16 at 04:00 Acetaminophen (Tylenol Tab) 650 mg Q6H PRN PO PAIN LEVEL 1-3 OR FEVER Last administered on 07/26/16 16:03; Admin Dose 650 MG; Start 07/22/16 at 04:00 Morphine Sulfate (morphine) 2 mg Q4H PRN IV PAIN LEVEL 7-10 Last administered on 07/25/16 13:29; Admin Dose 2 MG; Start 07/22/16 at 04:00 Aspirin (Halfprin) 81 mg DAILY PO Last administered on 07/27/16 08:52; Admin Dose 81 MG; Start 07/23/16 at 09:00 Hydralazine HCl (Apresoline) 10 mg Q6H PRN IV SBP>160; Start 07/22/16 at 10:00 Atorvastatin Calcium (Lipitor) 80 mg HS PO Last administered on 07/26/16 21:23 ; Admin Dose 80 MG; Start 07/22/16 at 21:00 Carvedilol (Coreg) 6.25 mg BID PO Last administered on 07/27/16 08:52; Admin Dose 6.25 MG; Start 07/22/16 at 21:00 Alprazolam (Xanax) 0.25 mg Q6H PRN PO ANXIETY; Start 07/22/16 at 11:30 Al Hydrox/Mg Hydrox/Simethicone (Mag-Al Plus) 30 ml Q4H PRN PO GASTROINTESTINAL UPSET; Start 07/22/16 at 11:30 Ondansetron HCl (Zofran Inj) 4 mg Q4H PRN IV NAUSEA AND/OR VOMITING; Start at 11:30 Enoxaparin Sodium (Lovenox) 30 mg Q12 SC Last administered on 07/24/16 08:55; Admin Dose 30 MG; Start 07/22/16 at 21:00; Status Future Hold Enoxaparin Sodium (Lovenox) 80 mg Q12 SC Last administered on 07/24/16 08:55; Admin Dose 80 MG; Start 07/22/16 at 21:00; Status Future Hold Famotidine (Pepcid Iv) 20 mg BID IV Last administered on 07/27/16 09:10; Admin Dose 20 MG; Start 07/25/16 at 21:00 Morphine Sulfate (morphine) 2 mg Q1H PRN IV PAIN Last administered on 17:42; Admin Dose 2 MG; Start 07/25/16 at 16:00 Hydromorphone HCl (Dilaudid) 1 mg Q2 PRN IV PAIN Last administered on 08:51; Admin Dose 1 MG; Start 07/25/16 at 19:00 Furosemide (Lasix) 40 mg DAILY IV Last administered on 07/27/16 08:51; Admin Dose 40 MG; Start 07/26/16 at 09:30 Diagnostic Test (Pha) (Accu-Chek) 1 ea 02 XX Last administered on 07/27/16 02: 47; Admin Dose 1 EA; Start 07/27/16 at 02:00 Miscellaneous Information 1 ea NOTE XX ; Start 07/26/16 at 12:00 Glucose (Glutose) 15 gm Q15M PRN PO DECREASED GLUCOSE; Start 07/26/16 at 12:00 Glucose (Glutose) 22.5 gm Q15M PRN PO DECREASED GLUCOSE; Start 07/26/16 at 12: 00 Dextrose (D50w Syringe) 25 ml Q15M PRN IV DECREASED GLUCOSE; Start 07/26/16 at 12:00 Dextrose (D50w Syringe) 50 ml Q15M PRN IV DECREASED GLUCOSE; Start 07/26/16 at 12:00 Glucagon (Glucagen) 1 mg Q15M PRN IM DECREASED GLUCOSE; Start 07/26/16 at 12:00 Glucose (Glutose) 15 gm Q15M PRN BUCCAL DECREASED GLUCOSE; Start 07/26/16 at 12 :00 Insulin Glargine (Lantus) 33 unit DAILY@08 SC ; Start 07/28/16 at 08:00 MARIA ANTONIA BULLARD Jul 27, 2016 11:15
[2016-07-27] MEDS: morphine 2 MG INJ IV PRN (11:52)
--- NOTE | 2016-07-27 12:42 | CONS ---
Date/Time of Note Date/Time of Note DATE: 07/27/16 TIME: 12:40 Assessment/Plan Assessment/Plan Additional Assessment/Plan Non-ST elevation [place] CAD status post CABG 07/25/2016 Preserved ejection fraction Acute decompensated diastolic congestive heart failure Diabetes Hypertension Dyslipidemia -We will change Coreg to Lopressor for better heart rate control. Continue aspirin and statin therapy. Maintain potassium above 4.0 and magnesium above 2.0. Chest x-ray in a.m. Consultation Date/Type/Reason Admit Date/Time Jul 22, 2016 at 14:00 Type of Consultation: cv 24 HR Interval Summary Free Text/Dictation Patient continues to feel better, denies chest pain, shortness of breath Exam/Review of Systems Vital Signs Vitals Vital Signs Date Time Temp Pulse Resp B/P Pulse Ox O2 Delivery O2 Flow Rate FiO2 07/27/16 10:00 106 22 125/106 88 4.0 07/27/16 08:00 Nasal Cannula 07/27/16 04:00 99.2 07/25/16 23:20 40 Intake and Output 07/26/16 07/26/16 07/27/16 15:00 23:00 07:00 Intake Total 759.0 ml 180 ml Output Total 1135 ml 410 ml 345 ml Balance -376.0 ml -410 ml -165 ml Exam No apparent distress Constitutional: alert, oriented Head: normocephalic Neck: supple Respiratory: other (Coarse breath sounds bilaterally, no wheezing) Cardiovascular: other (S1-S2 heard), regular rate and rhythm Gastrointestinal: bowel sounds, non-tender, other (No guarding), soft Extremities: edema (Trace), other (No cyanosis) Results Result Diagram: 07/27/16 0400 07/27/16 0400 Results 24 hrs Laboratory Tests Test 07/26/16 14:10 07/26/16 17:13 07/26/16 21:28 07/27/16 01:45 Hematocrit 37.5 L Potassium Level 3.7 Magnesium Level 1.9 Bedside Glucose 198 200 191 Test 07/27/16 04:00 07/27/16 08:30 07/27/16 11:59 White Blood Count 14.0 #H Red Blood Count 4.13 L Hemoglobin 12.6 L Hematocrit 38.3 L Mean Corpuscular Volume 92.7 Mean Corpuscular Hemoglobin 30.5 Mean Corpuscular Hemoglobin Concent 32.9 Red Cell Distribution Width 12.8 Platelet Count 169 Mean Platelet Volume 10.2 Neutrophils % 75.6 Lymphocytes % 13.4 L Monocytes % 10.2 Eosinophils % 0.1 Basophils % 0.1 Nucleated Red Blood Cells % 0.0 Neutrophils # 10.6 H Lymphocytes # 1.9 Monocytes # 1.4 H Eosinophils # 0.0 Basophils # 0.0 Nucleated Red Blood Cells # 0.0 Sodium Level 137 Potassium Level 3.8 Chloride Level 100 Carbon Dioxide Level 29 Anion Gap 12 Blood Urea Nitrogen 11 Creatinine 0.63 Glucose Level 209 Calcium Level 8.5 Total Bilirubin 0.9 Direct Bilirubin 0.00 Indirect Bilirubin 0.9 Aspartate Amino Transf (AST/SGOT) 49 H Alanine Aminotransferase (ALT/SGPT) 44 Alkaline Phosphatase 129 H Total Protein 6.7 Albumin 3.6 Globulin 3.10 Albumin/Globulin Ratio 1.16 Bedside Glucose 230 H 261 H Medications Medications Current Medications Metoclopramide HCl (Reglan) 10 mg Q6H PRN IV NAUSEA AND/OR VOMITING; Start at 04:00 Nitroglycerin (Nitroglycerin (Sl Tab) 0.4 Mg) 1 tab Q5M PRN SL CHEST PAIN Last administered on 07/22/16 16:56; Admin Dose 1 TAB; Start 07/22/16 at 04:00 Acetaminophen (Tylenol Tab) 650 mg Q6H PRN PO PAIN LEVEL 1-3 OR FEVER Last administered on 07/26/16 16:03; Admin Dose 650 MG; Start 07/22/16 at 04:00 Morphine Sulfate (morphine) 2 mg Q4H PRN IV PAIN LEVEL 7-10 Last administered on 07/27/16 11:52; Admin Dose 2 MG; Start 07/22/16 at 04:00 Aspirin (Halfprin) 81 mg DAILY PO Last administered on 07/27/16 08:52; Admin Dose 81 MG; Start 07/23/16 at 09:00 Hydralazine HCl (Apresoline) 10 mg Q6H PRN IV SBP>160; Start 07/22/16 at 10:00 Atorvastatin Calcium (Lipitor) 80 mg HS PO Last administered on 07/26/16 21:23 ; Admin Dose 80 MG; Start 07/22/16 at 21:00 Carvedilol (Coreg) 6.25 mg BID PO Last administered on 07/27/16 08:52; Admin Dose 6.25 MG; Start 07/22/16 at 21:00 Alprazolam (Xanax) 0.25 mg Q6H PRN PO ANXIETY; Start 07/22/16 at 11:30 Al Hydrox/Mg Hydrox/Simethicone (Mag-Al Plus) 30 ml Q4H PRN PO GASTROINTESTINAL UPSET; Start 07/22/16 at 11:30 Ondansetron HCl (Zofran Inj) 4 mg Q4H PRN IV NAUSEA AND/OR VOMITING; Start at 11:30 Enoxaparin Sodium (Lovenox) 80 mg Q12 SC Last administered on 07/24/16 08:55; Admin Dose 80 MG; Start 07/22/16 at 21:00; Status Future Hold Famotidine (Pepcid Iv) 20 mg BID IV Last administered on 07/27/16 09:10; Admin Dose 20 MG; Start 07/25/16 at 21:00 Morphine Sulfate (morphine) 2 mg Q1H PRN IV PAIN Last administered on 17:42; Admin Dose 2 MG; Start 07/25/16 at 16:00 Hydromorphone HCl (Dilaudid) 1 mg Q2 PRN IV PAIN Last administered on 08:51; Admin Dose 1 MG; Start 07/25/16 at 19:00 Furosemide (Lasix) 40 mg DAILY IV Last administered on 07/27/16 08:51; Admin Dose 40 MG; Start 07/26/16 at 09:30 Diagnostic Test (Pha) (Accu-Chek) 1 ea 02 XX Last administered on 07/27/16 02: 47; Admin Dose 1 EA; Start 07/27/16 at 02:00 Miscellaneous Information 1 ea NOTE XX ; Start 07/26/16 at 12:00 Glucose (Glutose) 15 gm Q15M PRN PO DECREASED GLUCOSE; Start 07/26/16 at 12:00 Glucose (Glutose) 22.5 gm Q15M PRN PO DECREASED GLUCOSE; Start 07/26/16 at 12: 00 Dextrose (D50w Syringe) 25 ml Q15M PRN IV DECREASED GLUCOSE; Start 07/26/16 at 12:00 Dextrose (D50w Syringe) 50 ml Q15M PRN IV DECREASED GLUCOSE; Start 07/26/16 at 12:00 Glucagon (Glucagen) 1 mg Q15M PRN IM DECREASED GLUCOSE; Start 07/26/16 at 12:00 Glucose (Glutose) 15 gm Q15M PRN BUCCAL DECREASED GLUCOSE; Start 07/26/16 at 12 :00 Insulin Glargine (Lantus) 33 unit DAILY@08 SC ; Start 07/28/16 at 08:00 Enoxaparin Sodium (Lovenox) 40 mg DAILY SC ; Start 07/28/16 at 09:00 Tucker Fuller DO Jul 27, 2016 12:42
--- NOTE | 2016-07-27 14:54 | RADRPT ---
Vent Rate: 101 bpm RR Interval: 0 msec GA Interval: 136 msec QRS Duration: 92 msec QT Interval: 488 msec QTC Interval: 632 msec P-R-T [place]: 0 - 71 - 49 degrees Sinus tachycardia Cannot rule out Anterior infarct , age undetermined Abnormal ECG Electronically Signed By: Tucker Fuller [id number]
--- NOTE | 2016-07-27 14:58 | RADRPT ---
Vent Rate: 96 bpm RR Interval: 0 msec CA Interval: 188 msec QRS Duration: 94 msec QT Interval: 348 msec QTC Interval: 439 msec P-R-T [place]: 39 - 42 - 50 degrees Normal sinus rhythm Inferior infarct , age undetermined Anterior infarct , age undetermined Abnormal ECG Electronically Signed By: Tucker Fuller [id number]
[2016-07-27] MEDS: ATORVASTATIN 80 MG TAB PO SCH (21:21)
[2016-07-27] MEDS: METOPROLOL 50 MG TAB PO SCH (21:22)
[2016-07-28] VITALS (12 sets, daily range): BP systolic 114–143; BP diastolic 63–91; PULSE 95–110; RESP 17–20
[2016-07-28] MEDS: HYDROmorphONE 1 MG/ML SYG IV PRN ×6 (00:12→21:42)
[2016-07-28] MEDS: ACCU-CHEK XX SCH (02:00)
[2016-07-28 07:58] LABS: POTASSIUM 3.6 mmol/L (3.5-5.1)
[2016-07-28 08:00] LABS: CREATININE 0.67 mg/dl (0.61-1.24)
[2016-07-28] MEDS ORDERED: INSULIN GLARGINE [LANtus] 3 ML PEN SC SCH (08:00)
[2016-07-28 08:01] LABS: CALCIUM 8.7 mg/dl (8.4-10.2)
[2016-07-28 08:41] LABS: ADD SCAN DIFF NO
[2016-07-28] MEDS: INSULIN ASPART [NOVOLOG] 3 ML PEN SC SCH ×7 (09:40→21:47)
[2016-07-28] MEDS: ENOXAPARIN 40 MG/0.4 ML SYG SC SCH (09:42)
[2016-07-28] MEDS: FAMOTIDINE 20 MG INJ IV SCH ×2 (09:44→21:43)
[2016-07-28] MEDS: ASPIRIN (EC) 81 MG TAB PO SCH (09:44)
[2016-07-28] MEDS: METOPROLOL 50 MG TAB PO SCH ×2 (09:44→21:43)
[2016-07-28] MEDS: FUROSEMIDE 40 MG INJ IV SCH (09:45)
--- NOTE | 2016-07-28 11:39 | RADRPT ---
PROCEDURE: XR Chest AP portable CLINICAL INDICATION: Pulmonary congestion, dyspnea TECHNIQUE: An AP portable radiograph of the chest was submitted. COMPARISON: 07/26/2016 FINDINGS: Support Hardware: The Dania-Jesse catheter and NG tube have been removed. Cardiovascular: There is again evidence of a previous midline sternotomy. The heart remains moderat chris enlarged and the pulmonary vasculature again appears congested. Lung Bashir: Increasing atelectasis is seen in the left lower lobe and discoid atelectasis is seen i n the right upper and lower lung zones. Pleural Spaces: The left costophrenic angle is blunted cyst a small pleural fluid accumulation canno t be excluded. Osseous Structures: The osseous structures appear intact. Soft Tissues: The soft tissues appear generous. IMPRESSION: 1. Interval removal of the NG tube and right jugular Dania-Jesse catheter. 2. Previous midline sternotomy is again evident with moderate cardiomegaly and congestive pulmonary vasculature. 3. Increasing atelectasis of of the left lower lobe with discoid atelectasis now seen within the ri ght upper and lower lung zones. A small left pleural fluid accumulation cannot be excluded. Physician Светлана Date Time Electronically viewed and signed by Physician Светлана on 07/28/2016 11:39 /
[2016-07-28 13:03] LABS: BASOPHILS % 0.3 % (0.0-2.0); EOSINOPHILS # 0.1 10^3/ul (0.0-0.5); EOSINOPHILS % 0.4 % (0.0-7.0); HEMATOCRIT 36.6 % (42.0-52.0); HEMOGLOBIN 12.1 g/dl (14.0-18.0); LYMPHOCYTES # 1.8 10^3/ul (0.8-2.9); MEAN CORPUSCULAR HGB CONC 33.1 g/dl (32.0-37.0); MEAN CORPUSCULAR VOLUME 93.8 fl (82.0-101.0); MEAN PLATELET VOLUME 10.1 fl (7.4-10.4); MONOCYTE # 1.2 10^3/ul (0.3-0.9); MONOCYTES % 10.1 % (0.0-11.0); NEUTROPHIL # 8.8 10^3/ul (1.6-7.5); NEUTROPHILS % 73.7 % (39.0-77.0); PLATELET COUNT 193 10^3/UL (140-415); RED CELL DISTRIBUTION WIDTH 12.6 % (11.5-14.5)
[2016-07-28] MEDS ORDERED: POTASSIUM CHLORIDE (SR) 20 MEQ TAB PO STA (14:02)
--- NOTE | 2016-07-28 14:04 | CONS ---
Date/Time of Note Date/Time of Note DATE: 07/28/16 TIME: 14:03 Assessment/Plan Assessment/Plan Additional Assessment/Plan Non-ST elevation [place] CAD status post CABG 07/25/2016 Preserved ejection fraction Acute decompensated diastolic congestive heart failure Diabetes Hypertension Dyslipidemia -Chest x-ray with pulmonary vascular congestion, would give extra dose of IV Lasix this afternoon. Supplement potassium to maintain above 4.0 and magnesium above 2.0. Continue aspirin, statin and beta-andrew Consultation Date/Type/Reason Admit Date/Time Jul 22, 2016 at 14:00 Type of Consultation: cv 24 HR Interval Summary Free Text/Dictation Patient feeling better, ambulating in the room with no chest pain or shortness of breath or dizziness. Exam/Review of Systems Vital Signs Vitals Vital Signs Date Time Temp Pulse Resp B/P Pulse Ox O2 Delivery O2 Flow Rate FiO2 07/28/16 12:36 100 07/28/16 11:43 98.7 20 124/80 95 07/28/16 02:55 4.0 07/27/16 17:29 Nasal Cannula 07/25/16 23:20 40 Intake and Output 07/27/16 07/27/16 07/28/16 15:00 23:00 07:00 Intake Total 1380 ml 360 ml 300 ml Output Total 1115 ml 20 ml 500 ml Balance 265 ml 340 ml -200 ml Exam No apparent distress, walking in the room Constitutional: alert, obese, oriented Head: normocephalic Neck: supple Respiratory: other (Coarse breath sounds bilaterally, no wheezing) Cardiovascular: other (S1-S2 heard), regular rate and rhythm Gastrointestinal: bowel sounds, non-tender, other (No guarding), soft Extremities: edema, other (No cyanosis) Results Result Diagram: 07/28/16 0720 07/28/16 0720 Results 24 hrs Laboratory Tests Test 07/27/16 17:07 07/27/16 21:19 07/28/16 03:51 07/28/16 07:20 Bedside Glucose 222 H 195 193 White Blood Count 12.0 H Red Blood Count 3.90 L Hemoglobin 12.1 L Hematocrit 36.6 L Mean Corpuscular Volume 93.8 Mean Corpuscular Hemoglobin 31.0 Mean Corpuscular Hemoglobin Concent 33.1 Red Cell Distribution Width 12.6 Platelet Count 193 Mean Platelet Volume 10.1 Neutrophils % 73.7 Lymphocytes % 15.0 Monocytes % 10.1 Eosinophils % 0.4 Basophils % 0.3 Nucleated Red Blood Cells % 0.0 Neutrophils # 8.8 H Lymphocytes # 1.8 Monocytes # 1.2 H Eosinophils # 0.1 Basophils # 0.0 Nucleated Red Blood Cells # 0.0 Sodium Level 137 Potassium Level 3.6 Chloride Level 96 L Carbon Dioxide Level 31 Anion Gap 14 Blood Urea Nitrogen 13 Creatinine 0.67 Glucose Level 209 Calcium Level 8.7 Magnesium Level 1.8 Test 07/28/16 07:37 07/28/16 12:18 Bedside Glucose 204 260 H Medications Medications Current Medications Metoclopramide HCl (Reglan) 10 mg Q6H PRN IV NAUSEA AND/OR VOMITING; Start at 04:00 Nitroglycerin (Nitroglycerin (Sl Tab) 0.4 Mg) 1 tab Q5M PRN SL CHEST PAIN Last administered on 07/22/16 16:56; Admin Dose 1 TAB; Start 07/22/16 at 04:00 Acetaminophen (Tylenol Tab) 650 mg Q6H PRN PO PAIN LEVEL 1-3 OR FEVER Last administered on 07/26/16 16:03; Admin Dose 650 MG; Start 07/22/16 at 04:00 Morphine Sulfate (morphine) 2 mg Q4H PRN IV PAIN LEVEL 7-10 Last administered on 07/27/16 11:52; Admin Dose 2 MG; Start 07/22/16 at 04:00 Aspirin (Halfprin) 81 mg DAILY PO Last administered on 07/28/16 09:44; Admin Dose 81 MG; Start 07/23/16 at 09:00 Hydralazine HCl (Apresoline) 10 mg Q6H PRN IV SBP>160; Start 07/22/16 at 10:00 Atorvastatin Calcium (Lipitor) 80 mg HS PO Last administered on 07/27/16 21:21 ; Admin Dose 80 MG; Start 07/22/16 at 21:00 Alprazolam (Xanax) 0.25 mg Q6H PRN PO ANXIETY; Start 07/22/16 at 11:30 Al Hydrox/Mg Hydrox/Simethicone (Mag-Al Plus) 30 ml Q4H PRN PO GASTROINTESTINAL UPSET; Start 07/22/16 at 11:30 Ondansetron HCl (Zofran Inj) 4 mg Q4H PRN IV NAUSEA AND/OR VOMITING; Start at 11:30 Famotidine (Pepcid Iv) 20 mg BID IV Last administered on 07/28/16 09:44; Admin Dose 20 MG; Start 07/25/16 at 21:00 Morphine Sulfate (morphine) 2 mg Q1H PRN IV PAIN Last administered on 17:42; Admin Dose 2 MG; Start 07/25/16 at 16:00 Hydromorphone HCl (Dilaudid) 1 mg Q2 PRN IV PAIN Last administered on 12:41; Admin Dose 1 MG; Start 07/25/16 at 19:00 Furosemide (Lasix) 40 mg DAILY IV Last administered on 07/28/16 09:45; Admin Dose 40 MG; Start 07/26/16 at 09:30 Diagnostic Test (Pha) (Accu-Chek) 1 ea 02 XX Last administered on 07/28/16 02: 00; Admin Dose 1 EA; Start 07/27/16 at 02:00 Miscellaneous Information 1 ea NOTE XX ; Start 07/26/16 at 12:00 Glucose (Glutose) 15 gm Q15M PRN PO DECREASED GLUCOSE; Start 07/26/16 at 12:00 Glucose (Glutose) 22.5 gm Q15M PRN PO DECREASED GLUCOSE; Start 07/26/16 at 12: 00 Dextrose (D50w Syringe) 25 ml Q15M PRN IV DECREASED GLUCOSE; Start 07/26/16 at 12:00 Dextrose (D50w Syringe) 50 ml Q15M PRN IV DECREASED GLUCOSE; Start 07/26/16 at 12:00 Glucagon (Glucagen) 1 mg Q15M PRN IM DECREASED GLUCOSE; Start 07/26/16 at 12:00 Glucose (Glutose) 15 gm Q15M PRN BUCCAL DECREASED GLUCOSE; Start 07/26/16 at 12 :00 Enoxaparin Sodium (Lovenox) 40 mg DAILY SC Last administered on 07/28/16 09:42 ; Admin Dose 40 MG; Start 07/28/16 at 09:00 Metoprolol Tartrate (Lopressor) 50 mg BID PO Last administered on 07/28/16 09: 44; Admin Dose 50 MG; Start 07/27/16 at 21:00 Insulin Glargine (Lantus) 36 unit DAILY@08 SC ; Start 07/29/16 at 08:00 Tucker Fuller DO Jul 28, 2016 14:04
[2016-07-28] MEDS ORDERED: MAGNESIUM SULFATE 2 GM/50 ML 50 ML IVPB ONE (14:30)
[2016-07-28] MEDS ORDERED: FUROSEMIDE 40 MG INJ IV ONE (14:30)
--- NOTE | 2016-07-28 14:46 | PN ---
Date/Time of Note Date/Time of Note DATE: 07/28/16 TIME: 14:38 Assessment/Plan VTE Prophylaxis VTE Prophylaxis Intervention: LMWH Lines/Catheters [facility] (from [facility] Peripheral IV Urinary Cath still in place: No Assessment/Plan Chief Complaint/Hosp Course 1. Non-ST elevated myocardial infarction. Patient status post cardiac catheterization with 2 vessel coronary artery disease. Patient also status post CABG. Continue postop care. . chest tube in place . d/c per surgeon 2. Type 2 diabetes. A1c of 10.3. cont on insulin regimen. will adjust as BG still slightly high 3. Dyslipidemia. Continue on statin medication 4. Essential hypertension. Continue antihypertensives and adjust as needed 5. Vitamin D deficiency. cont on vit d supplement DVT prophylaxis: Lovenox Disposition and plan: cont PT encourage IS. on diuretic. d/c chest tube per surgeon. Discussed plan of care with Dr. Leiva Problems: Subjective 24 Hr Interval Summary Free Text/Dictation no s/s of distress. appears comfortable at present. Exam/Review of Systems Vital Signs Vitals Vital Signs Date Time Temp Pulse Resp B/P Pulse Ox O2 Delivery O2 Flow Rate FiO2 07/28/16 14:24 4.0 07/28/16 12:36 100 07/28/16 11:43 98.7 20 124/80 95 07/27/16 17:29 Nasal Cannula 07/25/16 23:20 40 Intake and Output 07/27/16 07/27/16 07/28/16 14:59 22:59 06:59 Intake Total 1130 ml 610 ml 300 ml Output Total 915 ml 220 ml 500 ml Balance 215 ml 390 ml -200 ml Exam General: No apparent distress, sitting in chair, comfortable Eyes: pupils equal round, Anicteric sclera Neck: Supple nontender, no JVD Cardiac: regular rate. chest tube in place. Pulmonary: diminished left lung field GI: Abdomen soft nontender nondistended, bowel sounds active Extremities: Minimal edema bilateral lower extremities. LLE surgical site cdi Skin: Surgical site on chest clean dry and intact Results Result Diagram: 07/28/16 0720 07/28/16 0720 Results 24 hrs Laboratory Tests Test 07/27/16 17:07 07/27/16 21:19 07/28/16 03:51 07/28/16 07:20 Bedside Glucose 222 H 195 193 White Blood Count 12.0 H Red Blood Count 3.90 L Hemoglobin 12.1 L Hematocrit 36.6 L Mean Corpuscular Volume 93.8 Mean Corpuscular Hemoglobin 31.0 Mean Corpuscular Hemoglobin Concent 33.1 Red Cell Distribution Width 12.6 Platelet Count 193 Mean Platelet Volume 10.1 Neutrophils % 73.7 Lymphocytes % 15.0 Monocytes % 10.1 Eosinophils % 0.4 Basophils % 0.3 Nucleated Red Blood Cells % 0.0 Neutrophils # 8.8 H Lymphocytes # 1.8 Monocytes # 1.2 H Eosinophils # 0.1 Basophils # 0.0 Nucleated Red Blood Cells # 0.0 Sodium Level 137 Potassium Level 3.6 Chloride Level 96 L Carbon Dioxide Level 31 Anion Gap 14 Blood Urea Nitrogen 13 Creatinine 0.67 Glucose Level 209 Calcium Level 8.7 Magnesium Level 1.8 Test 07/28/16 07:37 07/28/16 12:18 Bedside Glucose 204 260 H Medications Medications Current Medications Metoclopramide HCl (Reglan) 10 mg Q6H PRN IV NAUSEA AND/OR VOMITING; Start at 04:00 Nitroglycerin (Nitroglycerin (Sl Tab) 0.4 Mg) 1 tab Q5M PRN SL CHEST PAIN Last administered on 07/22/16 16:56; Admin Dose 1 TAB; Start 07/22/16 at 04:00 Acetaminophen (Tylenol Tab) 650 mg Q6H PRN PO PAIN LEVEL 1-3 OR FEVER Last administered on 07/26/16 16:03; Admin Dose 650 MG; Start 07/22/16 at 04:00 Aspirin (Halfprin) 81 mg DAILY PO Last administered on 07/28/16 09:44; Admin Dose 81 MG; Start 07/23/16 at 09:00 Hydralazine HCl (Apresoline) 10 mg Q6H PRN IV SBP>160; Start 07/22/16 at 10:00 Atorvastatin Calcium (Lipitor) 80 mg HS PO Last administered on 07/27/16 21:21 ; Admin Dose 80 MG; Start 07/22/16 at 21:00 Alprazolam (Xanax) 0.25 mg Q6H PRN PO ANXIETY; Start 07/22/16 at 11:30 Al Hydrox/Mg Hydrox/Simethicone (Mag-Al Plus) 30 ml Q4H PRN PO GASTROINTESTINAL UPSET; Start 07/22/16 at 11:30 Ondansetron HCl (Zofran Inj) 4 mg Q4H PRN IV NAUSEA AND/OR VOMITING; Start at 11:30 Famotidine (Pepcid Iv) 20 mg BID IV Last administered on 07/28/16 09:44; Admin Dose 20 MG; Start 07/25/16 at 21:00 Morphine Sulfate (morphine) 2 mg Q1H PRN IV PAIN Last administered on 17:42; Admin Dose 2 MG; Start 07/25/16 at 16:00 Hydromorphone HCl (Dilaudid) 1 mg Q2 PRN IV PAIN Last administered on 12:41; Admin Dose 1 MG; Start 07/25/16 at 19:00 Furosemide (Lasix) 40 mg DAILY IV Last administered on 07/28/16 09:45; Admin Dose 40 MG; Start 07/26/16 at 09:30 Diagnostic Test (Pha) (Accu-Chek) 1 ea 02 XX Last administered on 07/28/16 02: 00; Admin Dose 1 EA; Start 07/27/16 at 02:00 Miscellaneous Information 1 ea NOTE XX ; Start 07/26/16 at 12:00 Glucose (Glutose) 15 gm Q15M PRN PO DECREASED GLUCOSE; Start 07/26/16 at 12:00 Glucose (Glutose) 22.5 gm Q15M PRN PO DECREASED GLUCOSE; Start 07/26/16 at 12: 00 Dextrose (D50w Syringe) 25 ml Q15M PRN IV DECREASED GLUCOSE; Start 07/26/16 at 12:00 Dextrose (D50w Syringe) 50 ml Q15M PRN IV DECREASED GLUCOSE; Start 07/26/16 at 12:00 Glucagon (Glucagen) 1 mg Q15M PRN IM DECREASED GLUCOSE; Start 07/26/16 at 12:00 Glucose (Glutose) 15 gm Q15M PRN BUCCAL DECREASED GLUCOSE; Start 07/26/16 at 12 :00 Enoxaparin Sodium (Lovenox) 40 mg DAILY SC Last administered on 07/28/16 09:42 ; Admin Dose 40 MG; Start 07/28/16 at 09:00 Metoprolol Tartrate (Lopressor) 50 mg BID PO Last administered on 07/28/16 09: 44; Admin Dose 50 MG; Start 07/27/16 at 21:00 Insulin Glargine 36 unit 36 unit DAILY@08 SC ; Start 07/29/16 at 08:00 Magnesium Sulfate (Magnesium Sulfate 2 Gm/50 ml) 50 ml @ 25 mls/hr ONCE ONCE IVPB ; Start 07/28/16 at 14:30; Stop 07/28/16 at 16:29 MARIA ANTONIA BULLARD Jul 28, 2016 14:45
[2016-07-28] MEDS: ATORVASTATIN 80 MG TAB PO SCH (21:43)
--- NOTE | 2016-07-28 21:48 | PN ---
Date/Time of Note Date/Time of Note DATE: 07/28/16 TIME: 21:47 Assessment/Plan Lines/Catheters IV Catheter Type (from Nrsg): Peripheral IV Maynard in Place (from Nrsg): No Assessment/Plan Chief Complaint/Hosp Course IMPRESSION: Coronary artery disease. SP coronary artery bypass grafting CT [address] tomorrow Problems: Subjective 24 Hr Interval Summary Constitutional: improved Pain Control: mild Exam/Review of Systems Vital Signs Vitals Vital Signs Date Time Temp Pulse Resp B/P Pulse Ox O2 Delivery O2 Flow Rate FiO2 07/28/16 20:11 97.5 100 20 143/63 100 07/28/16 19:49 Nasal Cannula 4.0 07/25/16 23:20 40 Intake and Output 07/27/16 07/27/16 07/28/16 15:00 23:00 07:00 Intake Total 1380 ml 360 ml 300 ml Output Total 1115 ml 20 ml 500 ml Balance 265 ml 340 ml -200 ml Exam ENMT: mucosa pink and moist, nl external ears & nose, nl lips & teeth, nl nasal mucosa & septum Neck: non-tender, supple Respiratory: clear to auscultation, normal air movement Cardiovascular: nl pulses, regular rate and rhythm Gastrointestinal: nl liver, spleen, non-tender, soft Results Result Diagram: 07/28/16 [id number] MILAN AKHTAR MD Jul 28, 2016 21:48
[2016-07-29] VITALS (11 sets, daily range): BP systolic 125–146; BP diastolic 65–89; PULSE 90–108; RESP 15–20
[2016-07-29] MEDS: HYDROmorphONE 1 MG/ML SYG IV PRN ×8 (00:32→22:25)
[2016-07-29] MEDS: ACCU-CHEK XX SCH (02:00)
[2016-07-29 07:33] LABS: ADD SCAN DIFF NO
[2016-07-29 07:44] LABS: BASOPHILS % 0.3 % (0.0-2.0); EOSINOPHILS # 0.1 10^3/ul (0.0-0.5); EOSINOPHILS % 0.9 % (0.0-7.0); HEMATOCRIT 34.4 % (42.0-52.0); HEMOGLOBIN 12.3 g/dl (14.0-18.0); LYMPHOCYTES % 30.8 % (15.0-51.0); MEAN CORPUSCULAR HEMOGLOBIN 31.9 pg (29.0-33.0); MEAN CORPUSCULAR HGB CONC 35.8 g/dl (32.0-37.0); MEAN CORPUSCULAR VOLUME 89.4 fl (82.0-101.0); MEAN PLATELET VOLUME 9.9 fl (7.4-10.4); MONOCYTES % 10.7 % (0.0-11.0); NEUTROPHIL # 5.5 10^3/ul (1.6-7.5); NEUTROPHILS % 56.9 % (39.0-77.0); PLATELET COUNT 268 10^3/UL (140-415); RED BLOOD COUNT 3.85 10^6/ul (4.70-6.10); RED CELL DISTRIBUTION WIDTH 12.1 % (11.5-14.5); WHITE BLOOD COUNT 9.6 10^3/ul (4.8-10.8)
[2016-07-29 07:51] LABS: POTASSIUM 3.6 mmol/L (3.5-5.1)
[2016-07-29 07:54] LABS: CREATININE 0.67 mg/dl (0.61-1.24)
[2016-07-29 07:55] LABS: CALCIUM 8.9 mg/dl (8.4-10.2)
[2016-07-29] MEDS: METOPROLOL 50 MG TAB PO SCH ×2 (08:22→20:36)
[2016-07-29] MEDS: FAMOTIDINE 20 MG INJ IV SCH (08:22)
[2016-07-29] MEDS: ASPIRIN (EC) 81 MG TAB PO SCH (08:22)
[2016-07-29] MEDS: FUROSEMIDE 40 MG INJ IV SCH (08:22)
[2016-07-29] MEDS: ENOXAPARIN 40 MG/0.4 ML SYG SC SCH (08:25)
[2016-07-29] MEDS: INSULIN ASPART [NOVOLOG] 3 ML PEN SC SCH ×7 (08:26→20:49)
[2016-07-29] MEDS: INSULIN GLARGINE [LANtus] 3 ML PEN SC SCH (08:26)
--- NOTE | 2016-07-29 11:42 | PN ---
Date/Time of Note Date/Time of Note DATE: 07/29/16 TIME: 11:42 Assessment/Plan Lines/Catheters IV Catheter Type (from Nrs): Peripheral IV Maynard in Place (from Nrsg): No Assessment/Plan Chief Complaint/Hosp Course IMPRESSION: Coronary artery disease. SP coronary artery bypass grafting will DC CT Problems: Subjective 24 Hr Interval Summary Constitutional: improved Pain Control: mild Exam/Review of Systems Vital Signs Vitals Vital Signs Date Time Temp Pulse Resp B/P Pulse Ox O2 Delivery O2 Flow Rate FiO2 07/29/16 11:23 98.2 91 20 126/82 94 07/29/16 03:53 4.0 07/28/16 19:49 Nasal Cannula 07/25/16 23:20 40 Intake and Output 07/28/16 07/28/16 07/29/16 15:00 23:00 07:00 Intake Total 1000 ml 530 ml Output Total 80 ml 430 ml Balance 920 ml 100 ml Exam ENMT: mucosa pink and moist, nl external ears & nose, nl lips & teeth, nl nasal mucosa & septum Neck: non-tender, supple Respiratory: clear to auscultation, normal air movement Cardiovascular: nl pulses, regular rate and rhythm Results Result Diagram: 07/29/16 0645 07/29/16 0645 MILAN AKHTAR MD Jul 29, 2016 11:42
[2016-07-29] MEDS ORDERED: POTASSIUM CHLORIDE (SR) 20 MEQ TAB PO STA (13:16)
--- NOTE | 2016-07-29 13:19 | CONS ---
Date/Time of Note Date/Time of Note DATE: 07/29/16 TIME: 13:17 Assessment/Plan Assessment/Plan Additional Assessment/Plan Non-ST elevation SD CAD status post CABG 07/25/2016 Preserved ejection fraction Acute decompensated diastolic congestive heart failure Diabetes Hypertension Dyslipidemia -Patient's respiratory status continues to improve. Extra dose of IV diuretics this afternoon, will order chest x-ray for the a.m. If continues to improve, consider switching to p.o. diuretics in the next 1-2 days. Continue aspirin, statin and beta-andrew. Start low-dose NAKUL inhibitor as blood pressure and renal function permits. Maintain potassium above 4.0 and magnesium above 2.0. Consultation Date/Type/Reason Admit Date/Time Jul 22, 2016 at 14:00 Type of Consultation: cv 24 HR Interval Summary Free Text/Dictation Denies shortness of breath, chest pain or dizziness Exam/Review of Systems Vital Signs Vitals Vital Signs Date Time Temp Pulse Resp B/P Pulse Ox O2 Delivery O2 Flow Rate FiO2 07/29/16 12:12 91 07/29/16 11:23 98.2 20 126/82 94 07/29/16 03:53 4.0 07/28/16 19:49 Nasal Cannula 07/25/16 23:20 40 Intake and Output 07/28/16 07/28/16 07/29/16 15:00 23:00 07:00 Intake Total 1000 ml 530 ml Output Total 80 ml 430 ml Balance 920 ml 100 ml Exam No apparent distress Constitutional: alert, obese, oriented Head: normocephalic Neck: supple Respiratory: other (Coarse breath sounds bilaterally, no wheezing) Cardiovascular: other (S1-S2 heard), regular rate and rhythm Gastrointestinal: bowel sounds, non-tender, other (No guarding), soft Extremities: edema, other (No cyanosis) Results Result Diagram: 07/29/16 0645 07/29/16 0645 Results 24 hrs Laboratory Tests Test 07/28/16 17:12 07/28/16 21:32 07/29/16 03:32 07/29/16 06:45 Bedside Glucose 202 221 H 172 White Blood Count 9.6 Red Blood Count 3.85 L Hemoglobin 12.3 L Hematocrit 34.4 L Mean Corpuscular Volume 89.4 Mean Corpuscular Hemoglobin 31.9 Mean Corpuscular Hemoglobin Concent 35.8 Red Cell Distribution Width 12.1 Platelet Count 268 # Mean Platelet Volume 9.9 Neutrophils % 56.9 Lymphocytes % 30.8 Monocytes % 10.7 Eosinophils % 0.9 Basophils % 0.3 Nucleated Red Blood Cells % 0.0 Neutrophils # 5.5 Lymphocytes # 3.0 H Monocytes # 1.0 H Eosinophils # 0.1 Basophils # 0.0 Nucleated Red Blood Cells # 0.0 Sodium Level 135 Potassium Level 3.6 Chloride Level 93 L Carbon Dioxide Level 34 H Anion Gap 12 Blood Urea Nitrogen 13 Creatinine 0.67 Glucose Level 209 Calcium Level 8.9 Magnesium Level 1.8 Test 07/29/16 08:04 07/29/16 10:26 07/29/16 11:21 Bedside Glucose 180 225 H Lab Scanned Report REFERENCE LAB Medications Medications Current Medications Metoclopramide HCl (Reglan) 10 mg Q6H PRN IV NAUSEA AND/OR VOMITING; Start at 04:00 Nitroglycerin (Nitroglycerin (Sl Tab) 0.4 Mg) 1 tab Q5M PRN SL CHEST PAIN Last administered on 07/22/16 16:56; Admin Dose 1 TAB; Start 07/22/16 at 04:00 Acetaminophen (Tylenol Tab) 650 mg Q6H PRN PO PAIN LEVEL 1-3 OR FEVER Last administered on 07/26/16 16:03; Admin Dose 650 MG; Start 07/22/16 at 04:00 Aspirin (Halfprin) 81 mg DAILY PO Last administered on 07/29/16 08:22; Admin Dose 81 MG; Start 07/23/16 at 09:00 Hydralazine HCl (Apresoline) 10 mg Q6H PRN IV SBP>160; Start 07/22/16 at 10:00 Atorvastatin Calcium (Lipitor) 80 mg HS PO Last administered on 07/28/16 21:43 ; Admin Dose 80 MG; Start 07/22/16 at 21:00 Alprazolam (Xanax) 0.25 mg Q6H PRN PO ANXIETY; Start 07/22/16 at 11:30 Al Hydrox/Mg Hydrox/Simethicone (Mag-Al Plus) 30 ml Q4H PRN PO GASTROINTESTINAL UPSET; Start 07/22/16 at 11:30 Ondansetron HCl (Zofran Inj) 4 mg Q4H PRN IV NAUSEA AND/OR VOMITING; Start at 11:30 Famotidine (Pepcid Iv) 20 mg BID IV Last administered on 07/29/16 08:22; Admin Dose 20 MG; Start 07/25/16 at 21:00 Morphine Sulfate (morphine) 2 mg Q1H PRN IV PAIN Last administered on 17:42; Admin Dose 2 MG; Start 07/25/16 at 16:00 Hydromorphone HCl (Dilaudid) 1 mg Q2 PRN IV PAIN Last administered on 09:54; Admin Dose 1 MG; Start 07/25/16 at 19:00 Furosemide (Lasix) 40 mg DAILY IV Last administered on 07/29/16 08:22; Admin Dose 40 MG; Start 07/26/16 at 09:30 Diagnostic Test (Pha) (Accu-Chek) 1 ea 02 XX Last administered on 07/28/16 02: 00; Admin Dose 1 EA; Start 07/27/16 at 02:00 Miscellaneous Information 1 ea NOTE XX ; Start 07/26/16 at 12:00 Glucose (Glutose) 15 gm Q15M PRN PO DECREASED GLUCOSE; Start 07/26/16 at 12:00 Glucose (Glutose) 22.5 gm Q15M PRN PO DECREASED GLUCOSE; Start 07/26/16 at 12: 00 Dextrose (D50w Syringe) 25 ml Q15M PRN IV DECREASED GLUCOSE; Start 07/26/16 at 12:00 Dextrose (D50w Syringe) 50 ml Q15M PRN IV DECREASED GLUCOSE; Start 07/26/16 at 12:00 Glucagon (Glucagen) 1 mg Q15M PRN IM DECREASED GLUCOSE; Start 07/26/16 at 12:00 Glucose (Glutose) 15 gm Q15M PRN BUCCAL DECREASED GLUCOSE; Start 07/26/16 at 12 :00 Enoxaparin Sodium (Lovenox) 40 mg DAILY SC Last administered on 07/29/16 08:25 ; Admin Dose 40 MG; Start 07/28/16 at 09:00 Metoprolol Tartrate (Lopressor) 50 mg BID PO Last administered on 07/29/16 08: 22; Admin Dose 50 MG; Start 07/27/16 at 21:00 Insulin Glargine (Lantus) 36 unit DAILY@08 SC Last administered on 07/29/16t 08 :26; Admin Dose 36 UNIT; Start 07/29/16 at 08:00 Tucker Fuller DO Jul 29, 2016 13:19
[2016-07-29] MEDS: LISINOPRIL 5 MG TAB PO SCH (13:35)
[2016-07-29] MEDS ORDERED: MAGNESIUM SULFATE 2 GM/50 ML 50 ML IVPB ONE (14:00)
--- NOTE | 2016-07-29 14:11 | PN ---
Date/Time of Note Date/Time of Note DATE: 07/29/16 TIME: 13:57 Assessment/Plan VTE Prophylaxis VTE Prophylaxis Intervention: LMWH Lines/Catheters [facility] Type [facility]from [facility] Peripheral IV Urinary Cath still in place: No Assessment/Plan Chief Complaint/Hosp Course 1. Non-ST elevated myocardial infarction. Patient status post cardiac catheterization with 2 vessel coronary artery disease. Patient also status post CABG. Continue postop care. . chest tube in place . d/c per surgeon check follow -up chest x-ray 2. Type 2 diabetes. A1c of 10.3. cont on insulin regimen. Adjust as needed 3. Dyslipidemia. Continue on statin medication 4. Essential hypertension. Continue antihypertensives and adjust as needed 5. Vitamin D deficiency. cont on vit d supplement DVT prophylaxis: Lovenox Disposition and plan: follow up chest radiograph. titrate down o2. encourage IS. cont with [employer] consultant recs Discussed plan of care with Dr. Leiva Problems: Subjective 24 Hr Interval Summary Free Text/Dictation Comfortable at present. No apparent distress Exam/Review of Systems Vital Signs Vitals Vital Signs Date Time Temp Pulse Resp B/P Pulse Ox O2 Delivery O2 Flow Rate FiO2 07/29/16 12:12 91 07/29/16 11:23 98.2 20 126/82 94 07/29/16 03:53 4.0 07/28/16 19:49 Nasal Cannula 07/25/16 23:20 40 Intake and Output 07/28/16 07/28/16 07/29/16 15:00 23:00 07:00 Intake Total 1000 ml 530 ml Output Total 80 ml 430 ml Balance 920 ml 100 ml Exam General: No apparent distress, sitting in chair, comfortable Eyes: pupils equal round, Anicteric sclera Neck: Supple nontender, no JVD Cardiac: regular rate. chest tube in place. Pulmonary: diminished left lung field GI: Abdomen soft nontender nondistended, bowel sounds active Extremities: Minimal edema bilateral lower extremities. LLE surgical site cdi Skin: Surgical site on chest clean dry and intact Results Result Diagram: 07/29/16 0645 07/29/16 0645 Results 24 hrs Laboratory Tests Test 07/28/16 17:12 07/28/16 21:32 07/29/16 03:32 07/29/16 06:45 Bedside Glucose 202 221 H 172 White Blood Count 9.6 Red Blood Count 3.85 L Hemoglobin 12.3 L Hematocrit 34.4 L Mean Corpuscular Volume 89.4 Mean Corpuscular Hemoglobin 31.9 Mean Corpuscular Hemoglobin Concent 35.8 Red Cell Distribution Width 12.1 Platelet Count 268 # Mean Platelet Volume 9.9 Neutrophils % 56.9 Lymphocytes % 30.8 Monocytes % 10.7 Eosinophils % 0.9 Basophils % 0.3 Nucleated Red Blood Cells % 0.0 Neutrophils # 5.5 Lymphocytes # 3.0 H Monocytes # 1.0 H Eosinophils # 0.1 Basophils # 0.0 Nucleated Red Blood Cells # 0.0 Sodium Level 135 Potassium Level 3.6 Chloride Level 93 L Carbon Dioxide Level 34 H Anion Gap 12 Blood Urea Nitrogen 13 Creatinine 0.67 Glucose Level 209 Calcium Level 8.9 Magnesium Level 1.8 Test 07/29/16 08:04 07/29/16 10:26 07/29/16 11:21 Bedside Glucose 180 225 H Lab Scanned Report REFERENCE LAB Medications Medications Current Medications Metoclopramide HCl (Reglan) 10 mg Q6H PRN IV NAUSEA AND/OR VOMITING; Start at 04:00 Nitroglycerin (Nitroglycerin (Sl Tab) 0.4 Mg) 1 tab Q5M PRN SL CHEST PAIN Last administered on 07/22/16 16:56; Admin Dose 1 TAB; Start 07/22/16 at 04:00 Acetaminophen (Tylenol Tab) 650 mg Q6H PRN PO PAIN LEVEL 1-3 OR FEVER Last administered on 07/26/16 16:03; Admin Dose 650 MG; Start 07/22/16 at 04:00 Aspirin (Halfprin) 81 mg DAILY PO Last administered on 07/29/16 08:22; Admin Dose 81 MG; Start 07/23/16 at 09:00 Hydralazine HCl (Apresoline) 10 mg Q6H PRN IV SBP>160; Start 07/22/16 at 10:00 Atorvastatin Calcium (Lipitor) 80 mg HS PO Last administered on 07/28/16 21:43 ; Admin Dose 80 MG; Start 07/22/16 at 21:00 Alprazolam (Xanax) 0.25 mg Q6H PRN PO ANXIETY; Start 07/22/16 at 11:30 Al Hydrox/Mg Hydrox/Simethicone (Mag-Al Plus) 30 ml Q4H PRN PO GASTROINTESTINAL UPSET; Start 07/22/16 at 11:30 Ondansetron HCl (Zofran Inj) 4 mg Q4H PRN IV NAUSEA AND/OR VOMITING; Start at 11:30 Famotidine (Pepcid Iv) 20 mg BID IV Last administered on 07/29/16 08:22; Admin Dose 20 MG; Start 07/25/16 at 21:00 Morphine Sulfate (morphine) 2 mg Q1H PRN IV PAIN Last administered on 17:42; Admin Dose 2 MG; Start 07/25/16 at 16:00 Hydromorphone HCl (Dilaudid) 1 mg Q2 PRN IV PAIN Last administered on 13:35; Admin Dose 1 MG; Start 07/25/16 at 19:00 Furosemide (Lasix) 40 mg DAILY IV Last administered on 07/29/16 08:22; Admin Dose 40 MG; Start 07/26/16 at 09:30 Diagnostic Test (Pha) (Accu-Chek) 1 ea 02 XX Last administered on 07/28/16 02: 00; Admin Dose 1 EA; Start 07/27/16 at 02:00 Miscellaneous Information 1 ea NOTE XX ; Start 07/26/16 at 12:00 Glucose (Glutose) 15 gm Q15M PRN PO DECREASED GLUCOSE; Start 07/26/16 at 12:00 Glucose (Glutose) 22.5 gm Q15M PRN PO DECREASED GLUCOSE; Start 07/26/16 at 12: 00 Dextrose (D50w Syringe) 25 ml Q15M PRN IV DECREASED GLUCOSE; Start 07/26/16 at 12:00 Dextrose (D50w Syringe) 50 ml Q15M PRN IV DECREASED GLUCOSE; Start 07/26/16 at 12:00 Glucagon (Glucagen) 1 mg Q15M PRN IM DECREASED GLUCOSE; Start 07/26/16 at 12:00 Glucose (Glutose) 15 gm Q15M PRN BUCCAL DECREASED GLUCOSE; Start 07/26/16 at 12 :00 Enoxaparin Sodium (Lovenox) 40 mg DAILY SC Last administered on 07/29/16 08:25 ; Admin Dose 40 MG; Start 07/28/16 at 09:00 Metoprolol Tartrate (Lopressor) 50 mg BID PO Last administered on 07/29/16 08: 22; Admin Dose 50 MG; Start 07/27/16 at 21:00 Insulin Glargine 36 unit 36 unit DAILY@08 SC Last administered on 07/29/16 08: 26; Admin Dose 36 UNIT; Start 07/29/16 at 08:00 Magnesium Sulfate (Magnesium Sulfate 2 Gm/50 ml) 50 ml @ 25 mls/hr ONCE ONCE IVPB Last administered on 07/29/16 13:34; Admin Dose 25 MLS/HR; Start at 14:00; Stop 07/29/16 at 15:59 Furosemide (Lasix) 20 mg ONCE ONCE IV ; Start 07/29/16 at 16:00; Stop 07/29/16 at 16:01 Lisinopril (Zestril) 2.5 mg DAILY PO Last administered on 07/29/16 13:35; Admin Dose 2.5 MG; Start 07/29/16 at 14:00 MARIA ANTONIA BULLARD Jul 29, 2016 14:10
[2016-07-29] MEDS ORDERED: FUROSEMIDE 20 MG INJ IV ONE (16:00)
[2016-07-29] MEDS: FAMOTIDINE 20 MG TAB PO SCH (20:35)
[2016-07-29] MEDS: ATORVASTATIN 80 MG TAB PO SCH (20:35)
[2016-07-30] VITALS (12 sets, daily range): BP systolic 102–141; BP diastolic 67–84; PULSE 88–103; RESP 15–20
[2016-07-30] MEDS: HYDROmorphONE 1 MG/ML SYG IV PRN ×8 (00:53→23:56)
[2016-07-30] MEDS: ACCU-CHEK XX SCH (02:46)
[2016-07-30 07:49] LABS: POTASSIUM 3.8 mmol/L (3.5-5.1)
[2016-07-30 07:52] LABS: CREATININE 0.71 mg/dl (0.61-1.24)
[2016-07-30 08:13] LABS: ADD SCAN DIFF NO
[2016-07-30 08:53] LABS: BASOPHILS % 0.4 % (0.0-2.0); EOSINOPHILS # 0.1 10^3/ul (0.0-0.5); HEMOGLOBIN 13.1 g/dl (14.0-18.0); LYMPHOCYTES # 3.2 10^3/ul (0.8-2.9); LYMPHOCYTES % 32.6 % (15.0-51.0); MEAN CORPUSCULAR HEMOGLOBIN 31.1 pg (29.0-33.0); MEAN CORPUSCULAR HGB CONC 34.5 g/dl (32.0-37.0); MEAN CORPUSCULAR VOLUME 90.3 fl (82.0-101.0); MEAN PLATELET VOLUME 9.6 fl (7.4-10.4); MONOCYTES % 10.3 % (0.0-11.0); NEUTROPHIL # 5.4 10^3/ul (1.6-7.5); NEUTROPHILS % 55.2 % (39.0-77.0); PLATELET COUNT 336 10^3/UL (140-415); RED BLOOD COUNT 4.21 10^6/ul (4.70-6.10); RED CELL DISTRIBUTION WIDTH 12.1 % (11.5-14.5); WHITE BLOOD COUNT 9.8 10^3/ul (4.8-10.8)
[2016-07-30] MEDS: FAMOTIDINE 20 MG TAB PO SCH ×2 (09:31→20:36)
[2016-07-30] MEDS: FUROSEMIDE 40 MG INJ IV SCH (09:31)
[2016-07-30] MEDS: LISINOPRIL 5 MG TAB PO SCH (09:32)
[2016-07-30] MEDS: ASPIRIN (EC) 81 MG TAB PO SCH (09:32)
[2016-07-30] MEDS: METOPROLOL 50 MG TAB PO SCH ×2 (09:32→20:38)
[2016-07-30] MEDS: ENOXAPARIN 40 MG/0.4 ML SYG SC SCH (09:34)
[2016-07-30] MEDS: INSULIN ASPART [NOVOLOG] 3 ML PEN SC SCH ×7 (09:35→20:46)
[2016-07-30] MEDS: INSULIN GLARGINE [LANtus] 3 ML PEN SC SCH (09:36)
--- NOTE | 2016-07-30 10:41 | CONS ---
Date/Time of Note Date/Time of Note DATE: 07/30/16 TIME: 10:40 Assessment/Plan Assessment/Plan Chief Complaint/Hosp Course Non-ST elevation [place] CAD status post CABG 07/25/2016 Preserved ejection fraction Acute decompensated diastolic congestive heart failure Diabetes Hypertension Dyslipidemia Problems: Additional Assessment/Plan lasix to po dc in 24 -48 hours if ok w surgery Consultation Date/Type/Reason Admit Date/Time Jul 22, 2016 at 14:00 Initial Consult Date Type of Consultation: cv 24 HR Interval Summary Free Text/Dictation no chest pain, no sob, no palpitations Detailed Summary ENT: no complaints Respiratory: no complaints Cardiovascular: no complaints Gastrointestinal: no complaints Genitourinary: no complaints Musculoskeletal: no complaints Skin: no complaints Neurologic: no complaints Exam/Review of Systems Vital Signs Vitals Vital Signs Date Time Temp Pulse Resp B/P Pulse Ox O2 Delivery O2 Flow Rate FiO2 07/30/16 08:21 97 07/30/16 07:39 98.1 16 129/77 95 07/30/16 00:58 3.0 07/29/16 20:30 Nasal Cannula Intake and Output 07/29/16 07/29/16 07/30/16 15:00 23:00 07:00 Intake Total 1150 ml 700 ml Output Total 1000 ml Balance 1150 ml -300 ml Exam Constitutional: alert, oriented Head: atraumatic, normocephalic Neck: supple Respiratory: clear to auscultation Cardiovascular: regular rate and rhythm Gastrointestinal: soft Musculoskeletal: nl extremities to inspection Results Result Diagram: 07/30/16 0608 07/30/16 0608 Results 24 hrs Laboratory Tests Test 07/29/16 11:21 07/29/16 17:22 07/29/16 20:44 07/30/16 02:26 Bedside Glucose 225 H 243 H 224 H 180 Test 07/30/16 06:08 07/30/16 08:41 White Blood Count 9.8 Red Blood Count 4.21 L Hemoglobin 13.1 L Hematocrit 38.0 L Mean Corpuscular Volume 90.3 Mean Corpuscular Hemoglobin 31.1 Mean Corpuscular Hemoglobin Concent 34.5 Red Cell Distribution Width 12.1 Platelet Count 336 # Mean Platelet Volume 9.6 Neutrophils % 55.2 Lymphocytes % 32.6 Monocytes % 10.3 Eosinophils % 1.0 Basophils % 0.4 Nucleated Red Blood Cells % 0.0 Neutrophils # 5.4 Lymphocytes # 3.2 H Monocytes # 1.0 H Eosinophils # 0.1 Basophils # 0.0 Nucleated Red Blood Cells # 0.0 Sodium Level 135 Potassium Level 3.8 Chloride Level 93 L Carbon Dioxide Level 32 H Anion Gap 14 Blood Urea Nitrogen 11 Creatinine 0.71 Glucose Level 212 Calcium Level 9.0 Magnesium Level 1.9 Bedside Glucose 211 Medications Medications Current Medications Metoclopramide HCl (Reglan) 10 mg Q6H PRN IV NAUSEA AND/OR VOMITING; Start at 04:00 Nitroglycerin (Nitroglycerin (Sl Tab) 0.4 Mg) 1 tab Q5M PRN SL CHEST PAIN Last administered on 07/22/16 16:56; Admin Dose 1 TAB; Start 07/22/16 at 04:00 Acetaminophen (Tylenol Tab) 650 mg Q6H PRN PO PAIN LEVEL 1-3 OR FEVER Last administered on 07/26/16 16:03; Admin Dose 650 MG; Start 07/22/16 at 04:00 Aspirin (Halfprin) 81 mg DAILY PO Last administered on 07/30/16 09:32; Admin Dose 81 MG; Start 07/23/16 at 09:00 Hydralazine HCl (Apresoline) 10 mg Q6H PRN IV SBP>160; Start 07/22/16 at 10:00 Atorvastatin Calcium (Lipitor) 80 mg HS PO Last administered on 07/29/16 20:35 ; Admin Dose 80 MG; Start 07/22/16 at 21:00 Alprazolam (Xanax) 0.25 mg Q6H PRN PO ANXIETY; Start 07/22/16 at 11:30 Al Hydrox/Mg Hydrox/Simethicone (Mag-Al Plus) 30 ml Q4H PRN PO GASTROINTESTINAL UPSET; Start 07/22/16 at 11:30 Ondansetron HCl (Zofran Inj) 4 mg Q4H PRN IV NAUSEA AND/OR VOMITING; Start at 11:30 Morphine Sulfate (morphine) 2 mg Q1H PRN IV PAIN Last administered on 17:42; Admin Dose 2 MG; Start 07/25/16 at 16:00 Hydromorphone HCl (Dilaudid) 1 mg Q2 PRN IV PAIN Last administered on 07/30/16 09:37; Admin Dose 1 MG; Start 07/25/16 at 19:00 Furosemide (Lasix) 40 mg DAILY IV Last administered on 07/30/16 09:31; Admin Dose 40 MG; Start 07/26/16 at 09:30 Diagnostic Test (Pha) (Accu-Chek) 1 ea 02 XX Last administered on 07/30/16 02: 46; Admin Dose 1 EA; Start 07/27/16 at 02:00 Miscellaneous Information 1 ea NOTE XX ; Start 07/26/16 at 12:00 Glucose (Glutose) 15 gm Q15M PRN PO DECREASED GLUCOSE; Start 07/26/16 at 12:00 Glucose (Glutose) 22.5 gm Q15M PRN PO DECREASED GLUCOSE; Start 07/26/16 at 12: 00 Dextrose (D50w Syringe) 25 ml Q15M PRN IV DECREASED GLUCOSE; Start 07/26/16 at 12:00 Dextrose (D50w Syringe) 50 ml Q15M PRN IV DECREASED GLUCOSE; Start 07/26/16 at 12:00 Glucagon (Glucagen) 1 mg Q15M PRN IM DECREASED GLUCOSE; Start 07/26/16 at 12:00 Glucose (Glutose) 15 gm Q15M PRN BUCCAL DECREASED GLUCOSE; Start 07/26/16 at 12 :00 Enoxaparin Sodium (Lovenox) 40 mg DAILY SC Last administered on 07/30/16 09:34 ; Admin Dose 40 MG; Start 07/28/16 at 09:00 Metoprolol Tartrate (Lopressor) 50 mg BID PO Last administered on 07/30/16 09: 32; Admin Dose 50 MG; Start 07/27/16 at 21:00 Insulin Glargine (Lantus) 36 unit DAILY@08 SC Last administered on 07/30/16 09: 36; Admin Dose 36 UNIT; Start 07/29/16 at 08:00 Lisinopril (Zestril) 2.5 mg DAILY PO Last administered on 07/30/16 09:32; Admin Dose 2.5 MG; Start 07/29/16 at 14:00 Famotidine (Pepcid) 20 mg BID PO Last administered on 07/30/16 09:31; Admin Dose 20 MG; Start 07/29/16 at 21:00 CATHERINE FRANK MD Jul 30, 2016 10:41
--- NOTE | 2016-07-30 10:52 | RADRPT ---
PROCEDURE: XR Chest. CLINICAL INDICATION: CHF TECHNIQUE: Single frontal chest x-ray. COMPARISON: 07/28/2016 FINDINGS: Hazy left lung base opacity is grossly unchanged. There is stable moderate to severe cardiomegaly. The patient is status post sternotomy. The osseous structures are unremarkable. IMPRESSION: 1. Stable moderate to severe cardiomegaly. 2. Stable hazy left lung base opacity, likely atelectasis and/or mild to moderate pleural effusion. 3. No significant interval change. RPTAT: QQ .Richy Caruso MD, MD Date Time Electronically viewed and signed by .Richy Caruso MD, on 07/30/2016 10:52 .R/
--- NOTE | 2016-07-30 11:36 | PN ---
Date/Time of Note Date/Time of Note DATE: 07/30/16 TIME: 11:29 Assessment/Plan VTE Prophylaxis VTE Prophylaxis Intervention: LMWH Lines/Catheters IV C[facility]ter Type [facility]from [facility] Saline Lock Urinary Cath still in place: No Assessment/Plan Chief Complaint/Hosp Course 1. Non-ST elevated myocardial infarction. Patient status post cardiac catheterization with 2 vessel coronary artery disease. Patient also status post CABG. Continue postop care. . chest tube was d/c. still noted with left sided pleural effusion. follow up with CT surgeon recs 2. Type 2 diabetes. A1c of 10.3. cont on insulin regimen. Adjust as needed 3. Dyslipidemia. Continue on statin medication 4. Essential hypertension. Continue antihypertensives and adjust as needed 5. Vitamin D deficiency. cont on vit d supplement DVT prophylaxis: Lovenox Disposition and plan: does appear to be improving. continue to titrate off o2. d /c planning Discussed plan of care with Dr. Leiva Problems: Subjective 24 Hr Interval Summary Free Text/Dictation comfortable at present. chest tube was removed 07/29/16 Exam/Review of Systems Vital Signs Vitals Vital Signs Date Time Temp Pulse Resp B/P Pulse Ox O2 Delivery O2 Flow Rate FiO2 07/30/16 08:21 97 07/30/16 07:39 98.1 16 129/77 95 07/30/16 00:58 3.0 07/29/16 20:30 Nasal Cannula Intake and Output 07/29/16 07/29/16 07/30/16 15:00 23:00 07:00 Intake Total 1150 ml 700 ml Output Total 1000 ml Balance 1150 ml -300 ml Exam General: No apparent distress, sitting in chair, remains on o2 Eyes: pupils equal round, Anicteric sclera Neck: Supple nontender, no JVD Cardiac: regular rate. Pulmonary: still noted to be diminished left lung field GI: Abdomen soft nontender nondistended, bowel sounds active Extremities: less edema bilateral lower extremities. LLE surgical site cdi Skin: Surgical site on chest clean dry and intact Results Result Diagram: 07/30/16 0608 07/30/16 0608 Results 24 hrs Laboratory Tests Test 07/29/16 17:22 07/29/16 20:44 07/30/16 02:26 07/30/16 06:08 Bedside Glucose 243 H 224 H 180 White Blood Count 9.8 Red Blood Count 4.21 L Hemoglobin 13.1 L Hematocrit 38.0 L Mean Corpuscular Volume 90.3 Mean Corpuscular Hemoglobin 31.1 Mean Corpuscular Hemoglobin Concent 34.5 Red Cell Distribution Width 12.1 Platelet Count 336 # Mean Platelet Volume 9.6 Neutrophils % 55.2 Lymphocytes % 32.6 Monocytes % 10.3 Eosinophils % 1.0 Basophils % 0.4 Nucleated Red Blood Cells % 0.0 Neutrophils # 5.4 Lymphocytes # 3.2 H Monocytes # 1.0 H Eosinophils # 0.1 Basophils # 0.0 Nucleated Red Blood Cells # 0.0 Sodium Level 135 Potassium Level 3.8 Chloride Level 93 L Carbon Dioxide Level 32 H Anion Gap 14 Blood Urea Nitrogen 11 Creatinine 0.71 Glucose Level 212 Calcium Level 9.0 Magnesium Level 1.9 Test 07/30/16 08:41 Bedside Glucose 211 Medications Medications Current Medications Metoclopramide HCl (Reglan) 10 mg Q6H PRN IV NAUSEA AND/OR VOMITING; Start at 04:00 Nitroglycerin (Nitroglycerin (Sl Tab) 0.4 Mg) 1 tab Q5M PRN SL CHEST PAIN Last administered on 07/22/16 16:56; Admin Dose 1 TAB; Start 07/22/16 at 04:00 Acetaminophen (Tylenol Tab) 650 mg Q6H PRN PO PAIN LEVEL 1-3 OR FEVER Last administered on 07/26/16 16:03; Admin Dose 650 MG; Start 07/22/16 at 04:00 Aspirin (Halfprin) 81 mg DAILY PO Last administered on 07/30/16 09:32; Admin Dose 81 MG; Start 07/23/16 at 09:00 Hydralazine HCl (Apresoline) 10 mg Q6H PRN IV SBP>160; Start 07/22/16 at 10:00 Atorvastatin Calcium (Lipitor) 80 mg HS PO Last administered on 07/29/16 20:35 ; Admin Dose 80 MG; Start 07/22/16 at 21:00 Alprazolam (Xanax) 0.25 mg Q6H PRN PO ANXIETY; Start 07/22/16 at 11:30 Al Hydrox/Mg Hydrox/Simethicone (Mag-Al Plus) 30 ml Q4H PRN PO GASTROINTESTINAL UPSET; Start 07/22/16 at 11:30 Ondansetron HCl (Zofran Inj) 4 mg Q4H PRN IV NAUSEA AND/OR VOMITING; Start at 11:30 Morphine Sulfate (morphine) 2 mg Q1H PRN IV PAIN Last administered on 17:42; Admin Dose 2 MG; Start 07/25/16 at 16:00 Hydromorphone HCl (Dilaudid) 1 mg Q2 PRN IV PAIN Last administered on 07/30/16 09:37; Admin Dose 1 MG; Start 07/25/16 at 19:00 Diagnostic Test (Pha) (Accu-Chek) 1 ea 02 XX Last administered on 07/30/16 02: 46; Admin Dose 1 EA; Start 07/27/16 at 02:00 Miscellaneous Information 1 ea NOTE XX ; Start 07/26/16 at 12:00 Glucose (Glutose) 15 gm Q15M PRN PO DECREASED GLUCOSE; Start 07/26/16 at 12:00 Glucose (Glutose) 22.5 gm Q15M PRN PO DECREASED GLUCOSE; Start 07/26/16 at 12: 00 Dextrose (D50w Syringe) 25 ml Q15M PRN IV DECREASED GLUCOSE; Start 07/26/16 at 12:00 Dextrose (D50w Syringe) 50 ml Q15M PRN IV DECREASED GLUCOSE; Start 07/26/16 at 12:00 Glucagon (Glucagen) 1 mg Q15M PRN IM DECREASED GLUCOSE; Start 07/26/16 at 12:00 Glucose (Glutose) 15 gm Q15M PRN BUCCAL DECREASED GLUCOSE; Start 07/26/16 at 12 :00 Enoxaparin Sodium (Lovenox) 40 mg DAILY SC Last administered on 07/30/16 09:34 ; Admin Dose 40 MG; Start 07/28/16 at 09:00 Metoprolol Tartrate (Lopressor) 50 mg BID PO Last administered on 07/30/16 09: 32; Admin Dose 50 MG; Start 07/27/16 at 21:00 Insulin Glargine (Lantus) 36 unit DAILY@08 SC Last administered on 07/30/16 09: 36; Admin Dose 36 UNIT; Start 07/29/16 at 08:00 Lisinopril (Zestril) 2.5 mg DAILY PO Last administered on 4/1/17at 09:32; Admin Dose 2.5 MG; Start 07/29/16 at 14:00 Famotidine (Pepcid) 20 mg BID PO Last administered on 07/30/16t 09:31; Admin Dose 20 MG; Start 07/29/16 at 21:00 Furosemide (Lasix) 40 mg DAILY PO ; Start 07/31/16 at 09:00 MARIA ANTONIA BULLARD Jul 30, 2016 11:36
[2016-07-30] MEDS ORDERED: MAGNESIUM HYDROXIDE 30ML CUP PO ONE (20:30)
[2016-07-30] MEDS ORDERED: SENNA TAB PO ONE (20:30)
[2016-07-30] MEDS: ATORVASTATIN 80 MG TAB PO SCH (20:36)
--- NOTE | 2016-07-30 20:55 | PN ---
Date/Time of Note Date/Time of Note DATE: 07/30/16 TIME: 20:54 Assessment/Plan Lines/Catheters IV Catheter Type (from Nrs): Saline Lock [place] in Place (from Nrs): No Assessment/Plan Chief Complaint/Hosp Course IMPRESSION: Coronary artery disease. SP coronary artery bypass grafting \CT Dced pulm toilet ambulation Problems: Subjective 24 Hr Interval Summary Constitutional: improved Pain Control: mild Exam/Review of Systems Vital Signs Vitals Vital Signs Date Time Temp Pulse Resp B/P Pulse Ox O2 Delivery O2 Flow Rate FiO2 07/30/16 20:32 99 07/30/16 20:13 98.0 20 109/67 97 07/30/16 18:15 3.0 07/30/16 07:30 Nasal Cannula Intake and Output 07/29/16 07/29/16 07/30/16 15:00 23:00 07:00 Intake Total 1150 ml 700 ml Output Total 1000 ml Balance 1150 ml -300 ml Exam Neck: non-tender, supple Respiratory: clear to auscultation, normal air movement Cardiovascular: nl pulses, regular rate and rhythm Gastrointestinal: nl liver, spleen, non-tender, soft Results Result Diagram: 07/30/16 0608 07/30/16 0608 MILAN AKHTAR MD Jul 30, 2016 20:55
[2016-07-31] VITALS (13 sets, daily range): BP systolic 110–141; BP diastolic 76–84; PULSE 90–105; RESP 18–22
[2016-07-31] MEDS: HYDROmorphONE 1 MG/ML SYG IV PRN ×3 (02:19→07:43)
[2016-07-31] MEDS: ACCU-CHEK XX SCH (02:22)
[2016-07-31 07:35] LABS: ADD SCAN DIFF NO
[2016-07-31 07:50] LABS: BASOPHIL # 0.1 10^3/ul (0.0-0.1); BASOPHILS % 0.4 % (0.0-2.0); EOSINOPHILS # 0.1 10^3/ul (0.0-0.5); EOSINOPHILS % 0.8 % (0.0-7.0); HEMATOCRIT 36.9 % (42.0-52.0); HEMOGLOBIN 12.6 g/dl (14.0-18.0); LYMPHOCYTES # 3.5 10^3/ul (0.8-2.9); LYMPHOCYTES % 29.9 % (15.0-51.0); MEAN CORPUSCULAR HEMOGLOBIN 30.7 pg (29.0-33.0); MEAN CORPUSCULAR HGB CONC 34.1 g/dl (32.0-37.0); MEAN CORPUSCULAR VOLUME 89.8 fl (82.0-101.0); MEAN PLATELET VOLUME 9.2 fl (7.4-10.4); MONOCYTE # 1.1 10^3/ul (0.3-0.9); NEUTROPHILS % 59.3 % (39.0-77.0); PLATELET COUNT 368 10^3/UL (140-415); RED BLOOD COUNT 4.11 10^6/ul (4.70-6.10); RED CELL DISTRIBUTION WIDTH 12.1 % (11.5-14.5); WHITE BLOOD COUNT 11.8 10^3/ul (4.8-10.8)
[2016-07-31] MEDS: INSULIN GLARGINE [LANtus] 3 ML PEN SC SCH (07:53)
[2016-07-31] MEDS: INSULIN ASPART [NOVOLOG] 3 ML PEN SC SCH ×7 (07:54→21:18)
[2016-07-31] MEDS: FAMOTIDINE 20 MG TAB PO SCH ×2 (08:39→21:02)
[2016-07-31] MEDS: SENNA TAB PO SCH ×2 (08:39→21:03)
[2016-07-31] MEDS: FUROSEMIDE 40 MG TAB PO SCH (08:39)
[2016-07-31] MEDS: METOPROLOL 50 MG TAB PO SCH ×2 (08:39→21:03)
[2016-07-31] MEDS: ASPIRIN (EC) 81 MG TAB PO SCH (08:39)
[2016-07-31] MEDS: LISINOPRIL 5 MG TAB PO SCH (08:39)
[2016-07-31] MEDS: ENOXAPARIN 40 MG/0.4 ML SYG SC SCH (08:43)
--- NOTE | 2016-07-31 11:07 | PN ---
Date/Time of Note Date/Time of Note DATE: 07/31/16 TIME: 11:07 Assessment/Plan Lines/Catheters IV Catheter Type (from Nrs): Saline Lock [place] in Place (from Nrs): No Assessment/Plan Chief Complaint/Hosp Course IMPRESSION: Coronary artery disease. SP coronary artery bypass grafting \CT Dced pulm toilet ambulation Problems: Subjective 24 Hr Interval Summary Constitutional: improved Pain Control: mild Exam/Review of Systems Vital Signs Vitals Vital Signs Date Time Temp Pulse Resp B/P Pulse Ox O2 Delivery O2 Flow Rate FiO2 07/31/16 08:37 100 07/31/16 07:30 Nasal Cannula 1.0 07/31/16 07:15 97.9 18 121/84 94 Intake and Output 07/30/16 07/30/16 07/31/16 15:00 23:00 07:00 Intake Total 720 ml 1200 ml Output Total 500 ml Balance 720 ml 700 ml Exam Respiratory: clear to auscultation, normal air movement Cardiovascular: nl pulses, regular rate and rhythm Gastrointestinal: nl liver, spleen, non-tender, soft Results Result Diagram: 07/31/16 0723 07/30/16 0608 MILAN AKHTAR MD Jul 31, 2016 11:07
--- NOTE | 2016-07-31 11:12 | PN ---
Date/Time of Note Date/Time of Note DATE: 07/31/16 TIME: 11:09 Assessment/Plan VTE Prophylaxis VTE Prophylaxis Intervention: LMWH Lines/Catheters [facility] Saline Lock Urinary Cath still in place: No Assessment/Plan Chief Complaint/Hosp Course 1. Non-ST elevated myocardial infarction. Patient status post cardiac catheterization with 2 vessel coronary artery disease. Patient also status post CABG. Continue postop care. . chest tube was d/c. still noted with left sided pleural effusion. follow up with CT surgeon recs. cont diuresis 2. Type 2 diabetes. A1c of 10.3. cont on insulin regimen. Adjust as needed.stable 3. Dyslipidemia. Continue on statin medication. stable 4. Essential hypertension. Continue antihypertensives and adjust as needed. stable at present 5. Vitamin D deficiency. cont on vit d supplement DVT prophylaxis: Lovenox Disposition and plan: does appear to be improving. titrate off o2. analgesics adjusted. d/c when cleared by consultants [ Discussed plan of care with Dr. Leiva Problems: Subjective 24 Hr Interval Summary Free Text/Dictation still reports having chest pain (surgical site). no other specific complaints Exam/Review of Systems Vital Signs Vitals Vital Signs Date Time Temp Pulse Resp B/P Pulse Ox O2 Delivery O2 Flow Rate FiO2 07/31/16 08:37 100 07/31/16 07:30 Nasal Cannula 1.0 07/31/16 07:15 97.9 18 121/84 94 Intake and Output 07/30/16 07/30/16 07/31/16 15:00 23:00 07:00 Intake Total 720 ml 1200 ml Output Total 500 ml Balance 720 ml 700 ml Exam General: No apparent respiratory distress Eyes: pupils equal round, Anicteric sclera Neck: Supple nontender, no JVD Cardiac: regular rate. Pulmonary: no rhonchi but dim left lung field GI: Abdomen soft nontender nondistended, bowel sounds active Extremities: less edema bilateral lower extremities. LLE surgical site cdi Skin: Surgical site on chest clean dry and intact Results Result Diagram: 07/31/16 0723 07/30/16 0608 Results 24 hrs Laboratory Tests Test 07/30/16 12:00 07/30/16 17:03 07/30/16 20:43 07/31/16 02:22 Bedside Glucose 279 H 135 230 H 139 Test 07/31/16 07:23 07/31/16 07:45 White Blood Count 11.8 #H Red Blood Count 4.11 L Hemoglobin 12.6 L Hematocrit 36.9 L Mean Corpuscular Volume 89.8 Mean Corpuscular Hemoglobin 30.7 Mean Corpuscular Hemoglobin Concent 34.1 Red Cell Distribution Width 12.1 Platelet Count 368 Mean Platelet Volume 9.2 Neutrophils % 59.3 Lymphocytes % 29.9 Monocytes % 9.0 Eosinophils % 0.8 Basophils % 0.4 Nucleated Red Blood Cells % 0.0 Neutrophils # 7.0 Lymphocytes # 3.5 H Monocytes # 1.1 H Eosinophils # 0.1 Basophils # 0.1 Nucleated Red Blood Cells # 0.0 Bedside Glucose 148 Medications Medications Current Medications Metoclopramide HCl (Reglan) 10 mg Q6H PRN IV NAUSEA AND/OR VOMITING; Start at 04:00 Nitroglycerin (Nitroglycerin (Sl Tab) 0.4 Mg) 1 tab Q5M PRN SL CHEST PAIN Last administered on 07/22/16 16:56; Admin Dose 1 TAB; Start 07/22/16 at 04:00 Acetaminophen (Tylenol Tab) 650 mg Q6H PRN PO PAIN LEVEL 1-3 OR FEVER Last administered on 07/26/16 16:03; Admin Dose 650 MG; Start 07/22/16 at 04:00 Aspirin (Halfprin) 81 mg DAILY PO Last administered on 07/31/16 08:39; Admin Dose 81 MG; Start 07/23/16 at 09:00 Hydralazine HCl (Apresoline) 10 mg Q6H PRN IV SBP>160; Start 07/22/16 at 10:00 Atorvastatin Calcium (Lipitor) 80 mg HS PO Last administered on 07/30/16 20:36 ; Admin Dose 80 MG; Start 07/22/16 at 21:00 Alprazolam (Xanax) 0.25 mg Q6H PRN PO ANXIETY; Start 07/22/16 at 11:30 Al Hydrox/Mg Hydrox/Simethicone (Mag-Al Plus) 30 ml Q4H PRN PO GASTROINTESTINAL UPSET; Start 07/22/16 at 11:30 Ondansetron HCl (Zofran Inj) 4 mg Q4H PRN IV NAUSEA AND/OR VOMITING; Start at 11:30 Morphine Sulfate (morphine) 2 mg Q1H PRN IV PAIN Last administered on 17:42; Admin Dose 2 MG; Start 07/25/16 at 16:00 Hydromorphone HCl (Dilaudid) 1 mg Q2 PRN IV PAIN Last administered on 07/31/16 07:43; Admin Dose 1 MG; Start 07/25/16 at 19:00 Diagnostic Test (Pha) (Accu-Chek) 1 ea 02 XX Last administered on 07/31/16 02: 22; Admin Dose 1 EA; Start 07/27/16 at 02:00 Miscellaneous Information 1 ea NOTE XX ; Start 07/26/16 at 12:00 Glucose (Glutose) 15 gm Q15M PRN PO DECREASED GLUCOSE; Start 07/26/16 at 12:00 Glucose (Glutose) 22.5 gm Q15M PRN PO DECREASED GLUCOSE; Start 07/26/16 at 12: 00 Dextrose (D50w Syringe) 25 ml Q15M PRN IV DECREASED GLUCOSE; Start 07/26/16 at 12:00 Dextrose (D50w Syringe) 50 ml Q15M PRN IV DECREASED GLUCOSE; Start 07/26/16 at 12:00 Glucagon (Glucagen) 1 mg Q15M PRN IM DECREASED GLUCOSE; Start 07/26/16 at 12:00 Glucose (Glutose) 15 gm Q15M PRN BUCCAL DECREASED GLUCOSE; Start 07/26/16 at 12 :00 Enoxaparin Sodium (Lovenox) 40 mg DAILY SC Last administered on 07/31/16 08:43 ; Admin Dose 40 MG; Start 07/28/16 at 09:00 Metoprolol Tartrate (Lopressor) 50 mg BID PO Last administered on 07/31/16 08: 39; Admin Dose 50 MG; Start 07/27/16 at 21:00 Insulin Glargine (Lantus) 36 unit DAILY@08 SC Last administered on 07/31/16 07: 53; Admin Dose 36 UNIT; Start 07/29/16 at 08:00 Lisinopril (Zestril) 2.5 mg DAILY PO Last administered on 07/31/16 08:39; Admin Dose 2.5 MG; Start 07/29/16 at 14:00 Famotidine (Pepcid) 20 mg BID PO Last administered on 07/31/16 08:39; Admin Dose 20 MG; Start 07/29/16 at 21:00 Furosemide (Lasix) 40 mg DAILY PO Last administered on 07/31/16 08:39; Admin Dose 40 MG; Start 07/31/16 at 09:00 Senna (Senokot) 2 tab BID PO Last administered on 07/31/16 08:39; Admin Dose 2 TAB; Start 07/31/16 at 09:00 Magnesium Hydroxide (Milk Of Mag) 30 ml BID PRN PO CONSTIPATION; Start 07/30/16 at 20:30 Acetaminophen/ Hydrocodone Bitart ([place] (10/325)) 1 tab Q4H PRN PO PAIN; Start 07/31/16 at 11:00 Acetaminophen/ Hydrocodone Bitart ([place] (10/325)) 2 tab Q4H PRN PO SEVERE PAIN ; Start 07/31/16 at 11:00 MARIA ANTONIA BULLARD Jul 31, 2016 11:12
[2016-07-31] MEDS: HYDROCODONE/APAP (10/325) TAB PO PRN ×3 (11:48→21:08)
[2016-07-31] MEDS ORDERED: POTASSIUM CHLORIDE (SR) 20 MEQ TAB PO STA (14:16)
--- NOTE | 2016-07-31 14:19 | CONS ---
Date/Time of Note Date/Time of Note DATE: 07/31/16 TIME: 14:17 Assessment/Plan Assessment/Plan Additional Assessment/Plan Non-ST elevation [place] CAD status post CABG 07/25/2016 Preserved ejection fraction Acute decompensated diastolic congestive heart failure Diabetes Hypertension Dyslipidemia Paroxysmal atrial fibrillation, currently sinus rhythm -Lungs reviewed with brief episode of paroxysmal atrial fibrillation with rapid ventricular rates. Would start amiodarone to help maintain in sinus rhythm. Supplement potassium to maintain above 4.0 and magnesium above 2.0. Consultation Date/Type/Reason Admit Date/Time Jul 22, 2016 at 14:00 Type of Consultation: cv 24 HR Interval Summary Free Text/Dictation Denies shortness of breath, chest pain. This morning was having an episode of palpitations which quickly resolved Exam/Review of Systems Vital Signs Vitals Vital Signs Date Time Temp Pulse Resp B/P Pulse Ox O2 Delivery O2 Flow Rate FiO2 07/31/16 12:16 105 07/31/16 11:10 97.8 22 119/77 94 07/31/16 07:30 Nasal Cannula 1.0 Intake and Output 07/30/16 07/30/16 07/31/16 15:00 23:00 07:00 Intake Total 720 ml 1200 ml Output Total 500 ml Balance 720 ml 700 ml Exam No apparent distress, ambulating in the room Constitutional: alert, oriented Head: normocephalic Neck: supple Respiratory: other (Coarse breath sounds bilaterally, no wheezing) Cardiovascular: other (S1-S2 heard), regular rate and rhythm Gastrointestinal: bowel sounds, non-tender, other (No guarding), soft Extremities: edema (Trace), other (No cyanosis) Results Result Diagram: 07/31/16 0723 07/30/16 0608 Results 24 hrs Laboratory Tests Test 07/30/16 17:03 07/30/16 20:43 07/31/16 02:22 07/31/16 07:23 Bedside Glucose 135 230 H 139 White Blood Count 11.8 #H Red Blood Count 4.11 L Hemoglobin 12.6 L Hematocrit 36.9 L Mean Corpuscular Volume 89.8 Mean Corpuscular Hemoglobin 30.7 Mean Corpuscular Hemoglobin Concent 34.1 Red Cell Distribution Width 12.1 Platelet Count 368 Mean Platelet Volume 9.2 Neutrophils % 59.3 Lymphocytes % 29.9 Monocytes % 9.0 Eosinophils % 0.8 Basophils % 0.4 Nucleated Red Blood Cells % 0.0 Neutrophils # 7.0 Lymphocytes # 3.5 H Monocytes # 1.1 H Eosinophils # 0.1 Basophils # 0.1 Nucleated Red Blood Cells # 0.0 Test 07/31/16 07:45 07/31/16 11:39 Bedside Glucose 148 285 H Medications Medications Current Medications Metoclopramide HCl (Reglan) 10 mg Q6H PRN IV NAUSEA AND/OR VOMITING; Start at 04:00 Nitroglycerin (Nitroglycerin (Sl Tab) 0.4 Mg) 1 tab Q5M PRN SL CHEST PAIN Last administered on 07/22/16 16:56; Admin Dose 1 TAB; Start 07/22/16 at 04:00 Acetaminophen (Tylenol Tab) 650 mg Q6H PRN PO PAIN LEVEL 1-3 OR FEVER Last administered on 07/26/16 16:03; Admin Dose 650 MG; Start 07/22/16 at 04:00 Aspirin (Halfprin) 81 mg DAILY PO Last administered on 07/31/16 08:39; Admin Dose 81 MG; Start 07/23/16 at 09:00 Hydralazine HCl (Apresoline) 10 mg Q6H PRN IV SBP>160; Start 07/22/16 at 10:00 Atorvastatin Calcium (Lipitor) 80 mg HS PO Last administered on 07/30/16 20:36 ; Admin Dose 80 MG; Start 07/22/16 at 21:00 Alprazolam (Xanax) 0.25 mg Q6H PRN PO ANXIETY; Start 07/22/16 at 11:30 Al Hydrox/Mg Hydrox/Simethicone (Mag-Al Plus) 30 ml Q4H PRN PO GASTROINTESTINAL UPSET; Start 07/22/16 at 11:30 Ondansetron HCl (Zofran Inj) 4 mg Q4H PRN IV NAUSEA AND/OR VOMITING; Start at 11:30 Morphine Sulfate (morphine) 2 mg Q1H PRN IV PAIN Last administered on 17:42; Admin Dose 2 MG; Start 07/25/16 at 16:00 Hydromorphone HCl (Dilaudid) 1 mg Q2 PRN IV PAIN Last administered on 07/31/16 07:43; Admin Dose 1 MG; Start 07/25/16 at 19:00 Diagnostic Test (Pha) (Accu-Chek) 1 ea 02 XX Last administered on 07/31/16 02: 22; Admin Dose 1 EA; Start 07/27/16 at 02:00 Miscellaneous Information 1 ea NOTE XX ; Start 07/26/16 at 12:00 Glucose (Glutose) 15 gm Q15M PRN PO DECREASED GLUCOSE; Start 07/26/16 at 12:00 Glucose (Glutose) 22.5 gm Q15M PRN PO DECREASED GLUCOSE; Start 07/26/16 at 12: 00 Dextrose (D50w Syringe) 25 ml Q15M PRN IV DECREASED GLUCOSE; Start 07/26/16 at 12:00 Dextrose (D50w Syringe) 50 ml Q15M PRN IV DECREASED GLUCOSE; Start 07/26/16 at 12:00 Glucagon (Glucagen) 1 mg Q15M PRN IM DECREASED GLUCOSE; Start 07/26/16 at 12:00 Glucose (Glutose) 15 gm Q15M PRN BUCCAL DECREASED GLUCOSE; Start 07/26/16 at 12 :00 Enoxaparin Sodium (Lovenox) 40 mg DAILY SC Last administered on 07/31/16 08:43 ; Admin Dose 40 MG; Start 07/28/16 at 09:00 Metoprolol Tartrate (Lopressor) 50 mg BID PO Last administered on 07/31/16 08: 39; Admin Dose 50 MG; Start 07/27/16 at 21:00 Insulin Glargine (Lantus) 36 unit DAILY@08 SC Last administered on 07/31/16 07: 53; Admin Dose 36 UNIT; Start 07/29/16 at 08:00 Lisinopril (Zestril) 2.5 mg DAILY PO Last administered on 07/31/16 08:39; Admin Dose 2.5 MG; Start 07/29/16 at 14:00 Famotidine (Pepcid) 20 mg BID PO Last administered on 07/31/16 08:39; Admin Dose 20 MG; Start 07/29/16 at 21:00 Furosemide (Lasix) 40 mg DAILY PO Last administered on 07/31/16 08:39; Admin Dose 40 MG; Start 07/31/16 at 09:00 Senna (Senokot) 2 tab BID PO Last administered on 07/31/16 08:39; Admin Dose 2 TAB; Start 07/31/16 at 09:00 Magnesium Hydroxide (Milk Of Mag) 30 ml BID PRN PO CONSTIPATION; Start 07/30/16 at 20:30 Acetaminophen/ Hydrocodone Bitart ([place] (10/325)) 1 tab Q4H PRN PO PAIN Last administered on 07/31/16 11:48; Admin Dose 1 TAB; Start 07/31/16 at 11:00 Acetaminophen/ Hydrocodone Bitart ([place] (10/325)) 2 tab Q4H PRN PO SEVERE PAIN ; Start 07/31/16 at 11:00 Tucker Fuller DO Jul 31, 2016 14:19
[2016-07-31] MEDS ORDERED: MAGNESIUM SULFATE 2 GM/50 ML 50 ML IVPB ONE (14:30)
[2016-07-31] MEDS: AMIODARONE 200 MG TAB PO SCH ×2 (15:51→23:29)
[2016-07-31] MEDS: ATORVASTATIN 80 MG TAB PO SCH (21:02)
[2016-08-01] VITALS (10 sets, daily range): BP systolic 112–131; BP diastolic 62–78; PULSE 79–88; RESP 19
[2016-08-01] MEDS: ACCU-CHEK XX SCH (02:00)
[2016-08-01] MEDS: HYDROCODONE/APAP (10/325) TAB PO PRN ×4 (03:38→21:32)
[2016-08-01 08:00] LABS: ADD SCAN DIFF NO
[2016-08-01 08:07] LABS: BASOPHILS % 0.3 % (0.0-2.0); EOSINOPHILS # 0.1 10^3/ul (0.0-0.5); HEMATOCRIT 35.2 % (42.0-52.0); HEMOGLOBIN 11.8 g/dl (14.0-18.0); LYMPHOCYTES # 3.1 10^3/ul (0.8-2.9); LYMPHOCYTES % 26.9 % (15.0-51.0); MEAN CORPUSCULAR HEMOGLOBIN 30.3 pg (29.0-33.0); MEAN CORPUSCULAR HGB CONC 33.5 g/dl (32.0-37.0); MEAN CORPUSCULAR VOLUME 90.3 fl (82.0-101.0); MEAN PLATELET VOLUME 9.2 fl (7.4-10.4); MONOCYTE # 0.9 10^3/ul (0.3-0.9); MONOCYTES % 7.4 % (0.0-11.0); NEUTROPHIL # 7.4 10^3/ul (1.6-7.5); NEUTROPHILS % 63.8 % (39.0-77.0); PLATELET COUNT 365 10^3/UL (140-415); RED CELL DISTRIBUTION WIDTH 12.3 % (11.5-14.5); WHITE BLOOD COUNT 11.7 10^3/ul (4.8-10.8)
[2016-08-01] MEDS: INSULIN ASPART [NOVOLOG] 3 ML PEN SC SCH ×7 (08:22→21:39)
[2016-08-01] MEDS: INSULIN GLARGINE [LANtus] 3 ML PEN SC SCH (08:22)
[2016-08-01 08:32] LABS: POTASSIUM 4.2 mmol/L (3.5-5.1)
[2016-08-01 08:35] LABS: CALCIUM 8.9 mg/dl (8.4-10.2); CREATININE 0.75 mg/dl (0.61-1.24)
[2016-08-01] MEDS: POTASSIUM CHLORIDE (SR) 10 MEQ TAB PO SCH (09:17)
[2016-08-01] MEDS: FAMOTIDINE 20 MG TAB PO SCH ×2 (09:18→21:32)
[2016-08-01] MEDS: SENNA TAB PO SCH ×2 (09:18→21:32)
[2016-08-01] MEDS: FUROSEMIDE 40 MG TAB PO SCH (09:19)
[2016-08-01] MEDS: AMIODARONE 200 MG TAB PO SCH ×2 (09:19→21:31)
[2016-08-01] MEDS: ASPIRIN (EC) 81 MG TAB PO SCH (09:19)
[2016-08-01] MEDS: LISINOPRIL 5 MG TAB PO SCH (09:20)
[2016-08-01] MEDS: METOPROLOL 50 MG TAB PO SCH ×2 (09:20→21:31)
[2016-08-01] MEDS: ENOXAPARIN 40 MG/0.4 ML SYG SC SCH (09:26)
--- NOTE | 2016-08-01 10:35 | PN ---
Date/Time of Note Date/Time of Note DATE: 08/01/16 TIME: 10:34 Assessment/Plan VTE Prophylaxis VTE Prophylaxis Intervention: LMWH Lines/Catheters IV C[facility]ter Type (from [facility] Urinary Cath still in place: No Assessment/Plan Chief Complaint/Hosp Course 1. Non-ST elevation myocardial infarction. Status post cardiac catheterization revealing 2-vessel coronary artery disease. S/P coronary artery bypass graft on 07/25/2016 (left internal mammary artery to left anterior descending and saphenous vein graft to the PDA). Continue postoperative care. 2. Type 2 diabetes mellitus, uncontrolled. Hemoglobin A1c 10.3. Continue sliding scale insulin along with basal insulin and Lantus insulin. Will adjust insulin dosing to obtain optimum pressure control. 5. Dyslipidemia. The patient has elevated total cholesterol and elevated triglycerides, along with suboptimal LDL and HDL. The patient will be continued on statins. 6. Essential hypertension. The patient will be maintained on antihypertensives. Blood pressure fairly well controlled. 7. Paroxysmal atrial fibrillation. Currently in sinus rhythm. On amiodarone. 8. Vitamin D deficiency. The patient on vitamin D supplements. 9. Fluid, electrolytes and nutrition. Carbohydrate controlled, low cholesterol diet. 10. Deep venous thrombosis prophylaxis. SQ Lovenox. 11. Gastrointestinal prophylaxis. Histamine 2 receptor blockers. 12. Plan. Continue postop care. Continue pain control. Await clearance from consultants before discharge. The case was discussed with Dr. Yeboah. Problems: Subjective 24 Hr Interval Summary Free Text/Dictation Incisional pain well controlled. Blood sugars well controlled. Exam/Review of Systems Vital Signs Vitals Vital Signs Date Time Temp Pulse Resp B/P Pulse Ox O2 Delivery O2 Flow Rate FiO2 08/01/16 09:22 82 08/01/16 07:29 98.3 19 118/72 94 08/01/16 03:50 3.0 07/31/16 20:45 Nasal Cannula Intake and Output 07/31/16 07/31/16 08/01/16 15:00 23:00 07:00 Intake Total 1100 ml 1000 ml Output Total 1000 ml Balance 1100 ml 0 ml Exam GENERAL: This is an obese male lying in bed in no apparent distress. HEENT: Head normocephalic and atraumatic. Eyes: Anicteric sclerae. Conjunctivae clear. ENT: Nasal septum is midline. Oral mucosa is moist. NECK: Supple. No JVD noticed. RESPIRATORY: Bilaterally clear to auscultation. No adventitious sounds heard. No use of accessory muscles of respiration. CARDIAC: Regular rate and rhythm. No murmurs heard. Sternal wall dressing. ABDOMEN: Soft, nontender and nondistended. Bowel sounds positive in all 4 quadrants. GENITOURINARY: Deferred. EXTREMITIES: No cyanosis, no clubbing, no edema. Peripheral pulses palpable. Left leg vein harvest site healing well. NEUROLOGIC: The patient is awake, alert and oriented. Cranial nerves are grossly intact. Results Result Diagram: 08/01/16 0715 08/01/16 0715 Results 24 hrs Laboratory Tests Test 07/31/16 11:39 07/31/16 17:51 07/31/16 20:57 08/01/16 03:32 Bedside Glucose 285 H 99 191 155 Test 08/01/16 07:15 08/01/16 07:51 White Blood Count 11.7 H Red Blood Count 3.90 L Hemoglobin 11.8 L Hematocrit 35.2 L Mean Corpuscular Volume 90.3 Mean Corpuscular Hemoglobin 30.3 Mean Corpuscular Hemoglobin Concent 33.5 Red Cell Distribution Width 12.3 Platelet Count 365 Mean Platelet Volume 9.2 Neutrophils % 63.8 Lymphocytes % 26.9 Monocytes % 7.4 Eosinophils % 1.0 Basophils % 0.3 Nucleated Red Blood Cells % 0.0 Neutrophils # 7.4 Lymphocytes # 3.1 H Monocytes # 0.9 Eosinophils # 0.1 Basophils # 0.0 Nucleated Red Blood Cells # 0.0 Sodium Level 135 Potassium Level 4.2 Chloride Level 96 L Carbon Dioxide Level 30 Anion Gap 13 Blood Urea Nitrogen 12 Creatinine 0.75 Glucose Level 163 Calcium Level 8.9 Bedside Glucose 162 Medications Medications Current Medications Metoclopramide HCl (Reglan) 10 mg Q6H PRN IV NAUSEA AND/OR VOMITING; Start at 04:00 Nitroglycerin (Nitroglycerin (Sl Tab) 0.4 Mg) 1 tab Q5M PRN SL CHEST PAIN Last administered on 07/22/16 16:56; Admin Dose 1 TAB; Start 07/22/16 at 04:00 Acetaminophen (Tylenol Tab) 650 mg Q6H PRN PO PAIN LEVEL 1-3 OR FEVER Last administered on 07/26/16 16:03; Admin Dose 650 MG; Start 07/22/16 at 04:00 Aspirin (Halfprin) 81 mg DAILY PO Last administered on 08/01/16 09:19; Admin Dose 81 MG; Start 07/23/16 at 09:00 Hydralazine HCl (Apresoline) 10 mg Q6H PRN IV SBP>160; Start 07/22/16 at 10:00 Atorvastatin Calcium (Lipitor) 80 mg HS PO Last administered on 07/31/16 21:02 ; Admin Dose 80 MG; Start 07/22/16 at 21:00 Alprazolam (Xanax) 0.25 mg Q6H PRN PO ANXIETY; Start 07/22/16 at 11:30 Al Hydrox/Mg Hydrox/Simethicone (Mag-Al Plus) 30 ml Q4H PRN PO GASTROINTESTINAL UPSET; Start 07/22/16 at 11:30 Ondansetron HCl (Zofran Inj) 4 mg Q4H PRN IV NAUSEA AND/OR VOMITING; Start at 11:30 Morphine Sulfate (morphine) 2 mg Q1H PRN IV PAIN Last administered on 17:42; Admin Dose 2 MG; Start 07/25/16 at 16:00 Hydromorphone HCl (Dilaudid) 1 mg Q2 PRN IV PAIN Last administered on 07/31/16 07:43; Admin Dose 1 MG; Start 07/25/16 at 19:00 Diagnostic Test (Pha) (Accu-Chek) 1 ea 02 XX Last administered on 07/31/16 02: 22; Admin Dose 1 EA; Start 07/27/16 at 02:00 Miscellaneous Information 1 ea NOTE XX ; Start 07/26/16 at 12:00 Glucose (Glutose) 15 gm Q15M PRN PO DECREASED GLUCOSE; Start 07/26/16 at 12:00 Glucose (Glutose) 22.5 gm Q15M PRN PO DECREASED GLUCOSE; Start 07/26/16 at 12: 00 Dextrose (D50w Syringe) 25 ml Q15M PRN IV DECREASED GLUCOSE; Start 07/26/16 at 12:00 Dextrose (D50w Syringe) 50 ml Q15M PRN IV DECREASED GLUCOSE; Start 07/26/16 at 12:00 Glucagon (Glucagen) 1 mg Q15M PRN IM DECREASED GLUCOSE; Start 07/26/16 at 12:00 Glucose (Glutose) 15 gm Q15M PRN BUCCAL DECREASED GLUCOSE; Start 07/26/16 at 12 :00 Enoxaparin Sodium (Lovenox) 40 mg DAILY SC Last administered on 08/01/16 09:26 ; Admin Dose 40 MG; Start 07/28/16 at 09:00 Metoprolol Tartrate (Lopressor) 50 mg BID PO Last administered on 08/01/16 09: 20; Admin Dose 50 MG; Start 07/27/16 at 21:00 Insulin Glargine (Lantus) 36 unit DAILY@08 SC Last administered on 08/01/16 08: 22; Admin Dose 36 UNIT; Start 07/29/16 at 08:00 Lisinopril (Zestril) 2.5 mg DAILY PO Last administered on 08/01/16 09:20; Admin Dose 2.5 MG; Start 07/29/16 at 14:00 Famotidine (Pepcid) 20 mg BID PO Last administered on 08/01/16 09:18; Admin Dose 20 MG; Start 07/29/16 at 21:00 Furosemide (Lasix) 40 mg DAILY PO Last administered on 08/01/16 09:19; Admin Dose 40 MG; Start 07/31/16 at 09:00 Senna (Senokot) 2 tab BID PO Last administered on 08/01/16 09:18; Admin Dose 2 TAB; Start 07/31/16 at 09:00 Magnesium Hydroxide (Milk Of Mag) 30 ml BID PRN PO CONSTIPATION; Start 07/30/16 at 20:30 Acetaminophen/ Hydrocodone Bitart ([place] (10/325)) 1 tab Q4H PRN PO PAIN Last administered on 07/31/16 11:48; Admin Dose 1 TAB; Start 07/31/16 at 11:00 Acetaminophen/ Hydrocodone Bitart ([place] (10/325)) 2 tab Q4H PRN PO SEVERE PAIN Last administered on 08/01/16 09:16; Admin Dose 2 TAB; Start 07/31/16 at 11: 00 Potassium Chloride (Klor-Con 10) 10 meq DAILY PO Last administered on 08/01/16 09:17; Admin Dose 10 MEQ; Start 08/01/16 at 09:00 Amiodarone HCl (Cordarone) 400 mg BID PO Last administered on 08/01/16t 09:19; Admin Dose 400 MG; Start 07/31/16 at 14:30 NADEGE SPENCER NP Aug 01, 2016 10:35
--- NOTE | 2016-08-01 16:58 | CONS ---
Date/Time of Note Date/Time of Note DATE: 08/01/16 TIME: 16:56 Assessment/Plan Assessment/Plan Additional Assessment/Plan Non-ST elevation MO CAD status post CABG 07/25/2016 Preserved ejection fraction Acute decompensated diastolic congestive heart failure Diabetes Hypertension Dyslipidemia Paroxysmal atrial fibrillation, currently sinus rhythm -Patient remains in sinus rhythm, would titrate down amiodarone in the next 24 hours. Patient with hypoxia with ambulation, will obtain 2 view chest x-ray. Continue maintenance diuretics. Continue aspirin, beta-andrew and statin therapy. Consultation Date/Type/Reason Admit Date/Time Jul 22, 2016 at 14:00 Type of Consultation: cv 24 HR Interval Summary Free Text/Dictation Patient seen and examined, denies chest pain or shortness of breath. In discussion with the nurse, patient with hypoxia with physical therapy. Denies palpitations Exam/Review of Systems Vital Signs Vitals Vital Signs Date Time Temp Pulse Resp B/P Pulse Ox O2 Delivery O2 Flow Rate FiO2 08/01/16 16:38 88 08/01/16 15:27 97.8 19 115/71 92 08/01/16 11:32 Nasal Cannula 1.0 Intake and Output 07/31/16 07/31/16 08/01/16 15:00 23:00 07:00 Intake Total 1100 ml 1000 ml Output Total 1000 ml Balance 1100 ml 0 ml Exam No apparent distress Constitutional: alert, oriented Head: normocephalic Neck: supple Respiratory: other (Coarse breath sounds bilaterally, no wheezing) Cardiovascular: other (S1-S2 heard), regular rate and rhythm Gastrointestinal: bowel sounds, non-tender, other (No guarding), soft Extremities: edema (Trace), other (No cyanosis) Results Result Diagram: 08/01/16 0715 08/01/16 0715 Results 24 hrs Laboratory Tests Test 07/31/16 17:51 07/31/16 20:57 08/01/16 03:32 08/01/16 07:15 Bedside Glucose 99 191 155 White Blood Count 11.7 H Red Blood Count 3.90 L Hemoglobin 11.8 L Hematocrit 35.2 L Mean Corpuscular Volume 90.3 Mean Corpuscular Hemoglobin 30.3 Mean Corpuscular Hemoglobin Concent 33.5 Red Cell Distribution Width 12.3 Platelet Count 365 Mean Platelet Volume 9.2 Neutrophils % 63.8 Lymphocytes % 26.9 Monocytes % 7.4 Eosinophils % 1.0 Basophils % 0.3 Nucleated Red Blood Cells % 0.0 Neutrophils # 7.4 Lymphocytes # 3.1 H Monocytes # 0.9 Eosinophils # 0.1 Basophils # 0.0 Nucleated Red Blood Cells # 0.0 Sodium Level 135 Potassium Level 4.2 Chloride Level 96 L Carbon Dioxide Level 30 Anion Gap 13 Blood Urea Nitrogen 12 Creatinine 0.75 Glucose Level 163 Calcium Level 8.9 Test 08/01/16 07:51 08/01/16 12:40 Bedside Glucose 162 211 Medications Medications Current Medications Metoclopramide HCl (Reglan) 10 mg Q6H PRN IV NAUSEA AND/OR VOMITING; Start at 04:00 Nitroglycerin (Nitroglycerin (Sl Tab) 0.4 Mg) 1 tab Q5M PRN SL CHEST PAIN Last administered on 07/22/16 16:56; Admin Dose 1 TAB; Start 07/22/16 at 04:00 Acetaminophen (Tylenol Tab) 650 mg Q6H PRN PO PAIN LEVEL 1-3 OR FEVER Last administered on 07/26/16 16:03; Admin Dose 650 MG; Start 07/22/16 at 04:00 Aspirin (Halfprin) 81 mg DAILY PO Last administered on 08/01/16 09:19; Admin Dose 81 MG; Start 07/23/16 at 09:00 Hydralazine HCl (Apresoline) 10 mg Q6H PRN IV SBP>160; Start 07/22/16 at 10:00 Atorvastatin Calcium (Lipitor) 80 mg HS PO Last administered on 07/31/16 21:02 ; Admin Dose 80 MG; Start 07/22/16 at 21:00 Alprazolam (Xanax) 0.25 mg Q6H PRN PO ANXIETY; Start 07/22/16 at 11:30 Al Hydrox/Mg Hydrox/Simethicone (Mag-Al Plus) 30 ml Q4H PRN PO GASTROINTESTINAL UPSET; Start 07/22/16 at 11:30 Ondansetron HCl (Zofran Inj) 4 mg Q4H PRN IV NAUSEA AND/OR VOMITING; Start at 11:30 Morphine Sulfate (morphine) 2 mg Q1H PRN IV PAIN Last administered on 17:42; Admin Dose 2 MG; Start 07/25/16 at 16:00 Hydromorphone HCl (Dilaudid) 1 mg Q2 PRN IV PAIN Last administered on 07/31/16 07:43; Admin Dose 1 MG; Start 07/25/16 at 19:00 Diagnostic Test (Pha) (Accu-Chek) 1 ea 02 XX Last administered on 07/31/16 02: 22; Admin Dose 1 EA; Start 07/27/16 at 02:00 Miscellaneous Information 1 ea NOTE XX ; Start 07/26/16 at 12:00 Glucose (Glutose) 15 gm Q15M PRN PO DECREASED GLUCOSE; Start 07/26/16 at 12:00 Glucose (Glutose) 22.5 gm Q15M PRN PO DECREASED GLUCOSE; Start 07/26/16 at 12: 00 Dextrose (D50w Syringe) 25 ml Q15M PRN IV DECREASED GLUCOSE; Start 07/26/16 at 12:00 Dextrose (D50w Syringe) 50 ml Q15M PRN IV DECREASED GLUCOSE; Start 07/26/16 at 12:00 Glucagon (Glucagen) 1 mg Q15M PRN IM DECREASED GLUCOSE; Start 07/26/16 at 12:00 Glucose (Glutose) 15 gm Q15M PRN BUCCAL DECREASED GLUCOSE; Start 07/26/16 at 12 :00 Enoxaparin Sodium (Lovenox) 40 mg DAILY SC Last administered on 08/01/16 09:26 ; Admin Dose 40 MG; Start 07/28/16 at 09:00 Metoprolol Tartrate (Lopressor) 50 mg BID PO Last administered on 08/01/16 09: 20; Admin Dose 50 MG; Start 07/27/16 at 21:00 Insulin Glargine (Lantus) 36 unit DAILY@08 SC Last administered on 08/01/16 08: 22; Admin Dose 36 UNIT; Start 07/29/16 at 08:00 Lisinopril (Zestril) 2.5 mg DAILY PO Last administered on 08/01/16 09:20; Admin Dose 2.5 MG; Start 07/29/16 at 14:00 Famotidine (Pepcid) 20 mg BID PO Last administered on 08/01/16 09:18; Admin Dose 20 MG; Start 07/29/16 at 21:00 Furosemide (Lasix) 40 mg DAILY PO Last administered on 08/01/16 09:19; Admin Dose 40 MG; Start 07/31/16 at 09:00 Senna (Senokot) 2 tab BID PO Last administered on 08/01/16 09:18; Admin Dose 2 TAB; Start 07/31/16 at 09:00 Magnesium Hydroxide (Milk Of Mag) 30 ml BID PRN PO CONSTIPATION; Start 07/30/16 at 20:30 Acetaminophen/ Hydrocodone Bitart ([place] (10/325)) 1 tab Q4H PRN PO PAIN Last administered on 07/31/16 11:48; Admin Dose 1 TAB; Start 07/31/16 at 11:00 Acetaminophen/ Hydrocodone Bitart ([place] (10/325)) 2 tab Q4H PRN PO SEVERE PAIN Last administered on 08/01/16 15:18; Admin Dose 2 TAB; Start 07/31/16 at 11: 00 Potassium Chloride (Klor-Con 10) 10 meq DAILY PO Last administered on 08/01/16 09:17; Admin Dose 10 MEQ; Start 08/01/16 at 09:00 Amiodarone HCl (Cordarone) 400 mg BID PO Last administered on 08/01/16 09:19; Admin Dose 400 MG; Start 07/31/16 at 14:30 Tucker Fuller DO Aug 01, 2016 16:58
--- NOTE | 2016-08-01 19:03 | RADRPT ---
PROCEDURE: XR Chest. CLINICAL INDICATION: Status post CABG, hypoxia TECHNIQUE: PA and lateral chest x-ray. COMPARISON: 07/30/2016 FINDINGS: Moderate elevation of the left hemidiaphragm with left lower lung volume loss is again seen with int erval decrease in the left lower atelectasis compared to previous study. Enlargement of the the car diac silhouette is again seen. Sternal wires. ECG leads are projected over the chest. There may b e a small left pleural effusion again seen. IMPRESSION: Moderate elevation of the left hemidiaphragm with left lower lung volume loss again seen with interv al decrease in left lower atelectasis compared to previous study. Enlargement of cardiac silhouette again seen. Small left pleural effusion again seen. RPTAT: HJES .Kobi Kwan MD, Date Time Electronically viewed and signed by .Kobi Kwan MD, on 08/01/2016 19:03 .S/
[2016-08-01] MEDS: ATORVASTATIN 80 MG TAB PO SCH (21:31)
[2016-08-02] VITALS (11 sets, daily range): BP systolic 111–136; BP diastolic 65–90; PULSE 76–83; RESP 16–19
[2016-08-02] MEDS: ACCU-CHEK XX SCH (02:00)
[2016-08-02] MEDS: HYDROCODONE/APAP (10/325) TAB PO PRN ×2 (05:42→18:43)
[2016-08-02] MEDS: MAGNESIUM HYDROXIDE 30ML CUP PO PRN ×2 (05:47→17:17)
[2016-08-02 06:30] LABS: ADD SCAN DIFF NO
[2016-08-02 06:37] LABS: BASOPHIL # 0.1 10^3/ul (0.0-0.1); BASOPHILS % 0.5 % (0.0-2.0); EOSINOPHILS # 0.1 10^3/ul (0.0-0.5); EOSINOPHILS % 1.1 % (0.0-7.0); HEMATOCRIT 33.9 % (42.0-52.0); HEMOGLOBIN 11.6 g/dl (14.0-18.0); LYMPHOCYTES # 2.9 10^3/ul (0.8-2.9); LYMPHOCYTES % 25.8 % (15.0-51.0); MEAN CORPUSCULAR HEMOGLOBIN 30.8 pg (29.0-33.0); MEAN CORPUSCULAR HGB CONC 34.2 g/dl (32.0-37.0); MEAN CORPUSCULAR VOLUME 89.9 fl (82.0-101.0); MONOCYTE # 0.9 10^3/ul (0.3-0.9); MONOCYTES % 7.8 % (0.0-11.0); NEUTROPHIL # 7.1 10^3/ul (1.6-7.5); NEUTROPHILS % 64.2 % (39.0-77.0); PLATELET COUNT 417 10^3/UL (140-415); RED BLOOD COUNT 3.77 10^6/ul (4.70-6.10); RED CELL DISTRIBUTION WIDTH 12.1 % (11.5-14.5); WHITE BLOOD COUNT 11.1 10^3/ul (4.8-10.8)
[2016-08-02 06:56] LABS: POTASSIUM 3.9 mmol/L (3.5-5.1)
[2016-08-02 06:57] LABS: MAGNESIUM 1.8 mg/dl (1.7-2.5); PHOSPHORUS 5.2 mg/dl (2.5-4.9)
[2016-08-02 06:59] LABS: CREATININE 0.74 mg/dl (0.61-1.24)
[2016-08-02] MEDS: INSULIN ASPART [NOVOLOG] 3 ML PEN SC SCH ×7 (08:03→20:49)
[2016-08-02] MEDS: INSULIN GLARGINE [LANtus] 3 ML PEN SC SCH (08:03)
[2016-08-02] MEDS: SENNA TAB PO SCH ×2 (08:54→20:44)
[2016-08-02] MEDS: AMIODARONE 200 MG TAB PO SCH (08:54)
[2016-08-02] MEDS: FAMOTIDINE 20 MG TAB PO SCH ×2 (08:54→20:44)
[2016-08-02] MEDS: POTASSIUM CHLORIDE (SR) 10 MEQ TAB PO SCH (08:55)
[2016-08-02] MEDS: FUROSEMIDE 40 MG TAB PO SCH (08:55)
[2016-08-02] MEDS: LISINOPRIL 5 MG TAB PO SCH (08:55)
[2016-08-02] MEDS: ASPIRIN (EC) 81 MG TAB PO SCH (08:55)
[2016-08-02] MEDS: METOPROLOL 50 MG TAB PO SCH ×2 (08:56→20:48)
[2016-08-02] MEDS: ENOXAPARIN 40 MG/0.4 ML SYG SC SCH (09:01)
--- NOTE | 2016-08-02 09:34 | PN ---
Date/Time of Note Date/Time of Note DATE: 08/02/16 TIME: 09:31 Assessment/Plan VTE Prophylaxis VTE Prophylaxis Intervention: LMWH Lines/Catheters IV Catheter Type (from [facility] Urinary Cath still in place: No Assessment/Plan Chief Complaint/Hosp Course 1. Non-ST elevation myocardial infarction. Status post cardiac catheterization revealing 2-vessel coronary artery disease. S/P coronary artery bypass graft on 07/25/2016 (left internal mammary artery to left anterior descending and saphenous vein graft to the PDA). Continue postoperative care. 2. Type 2 diabetes mellitus, uncontrolled. Hemoglobin A1c 10.3. Continue sliding scale insulin along with basal insulin and Lantus insulin. Will adjust insulin dosing to obtain optimum pressure control. 5. Dyslipidemia. The patient has elevated total cholesterol and elevated triglycerides, along with suboptimal LDL and HDL. The patient will be continued on statins. 6. Essential hypertension. The patient will be maintained on antihypertensives. Blood pressure fairly well controlled. 7. Paroxysmal atrial fibrillation. Currently in sinus rhythm. On amiodarone. 8. Vitamin D deficiency. The patient on vitamin D supplements. 9. Fluid, electrolytes and nutrition. Carbohydrate controlled, low cholesterol diet. 10. Deep venous thrombosis prophylaxis. SQ Lovenox. 11. Gastrointestinal prophylaxis. Histamine 2 receptor blockers. 12. Plan. Continue postop care. Continue pain control. Patient still has some hypoxia with minimal exertion. Await clearance from consultants before discharge. The case was discussed with Dr. Yeboah. Problems: Subjective 24 Hr Interval Summary Free Text/Dictation Has some hypoxia with minimal exertion. Exam/Review of Systems Vital Signs Vitals Vital Signs Date Time Temp Pulse Resp B/P Pulse Ox O2 Delivery O2 Flow Rate FiO2 08/02/16 08:51 78 08/02/16 07:48 Nasal Cannula 1.0 08/02/16 07:22 98.0 18 117/65 91 Intake and Output 08/01/16 08/01/16 08/02/16 15:00 23:00 07:00 Intake Total 750 ml 240 ml Output Total 600 ml Balance 750 ml -360 ml Exam GENERAL: This is an obese male lying in bed in no apparent distress. HEENT: Head normocephalic and atraumatic. Eyes: Anicteric sclerae. Conjunctivae clear. ENT: Nasal septum is midline. Oral mucosa is moist. NECK: Supple. No JVD noticed. RESPIRATORY: Bilaterally clear to auscultation. No adventitious sounds heard. No use of accessory muscles of respiration. CARDIAC: Regular rate and rhythm. No murmurs heard. Sternal wall dressing. ABDOMEN: Soft, nontender and nondistended. Bowel sounds positive in all 4 quadrants. GENITOURINARY: Deferred. EXTREMITIES: No cyanosis, no clubbing, no edema. Peripheral pulses palpable. Left leg vein harvest site healing well. NEUROLOGIC: The patient is awake, alert and oriented. Cranial nerves are grossly intact. Results Result Diagram: 08/02/16 0600 08/02/16 0600 Results 24 hrs Laboratory Tests Test 08/01/16 12:40 08/01/16 17:50 08/01/16 21:30 08/02/16 02:28 Bedside Glucose 211 181 222 H 198 Test 08/02/16 06:00 08/02/16 07:58 White Blood Count 11.1 H Red Blood Count 3.77 L Hemoglobin 11.6 L Hematocrit 33.9 L Mean Corpuscular Volume 89.9 Mean Corpuscular Hemoglobin 30.8 Mean Corpuscular Hemoglobin Concent 34.2 Red Cell Distribution Width 12.1 Platelet Count 417 H Mean Platelet Volume 9.0 Neutrophils % 64.2 Lymphocytes % 25.8 Monocytes % 7.8 Eosinophils % 1.1 Basophils % 0.5 Nucleated Red Blood Cells % 0.0 Neutrophils # 7.1 Lymphocytes # 2.9 Monocytes # 0.9 Eosinophils # 0.1 Basophils # 0.1 Nucleated Red Blood Cells # 0.0 Sodium Level 136 Potassium Level 3.9 Chloride Level 93 L Carbon Dioxide Level 29 Anion Gap 18 H Blood Urea Nitrogen 13 Creatinine 0.74 Glucose Level 177 Calcium Level 9.0 Phosphorus Level 5.2 H Magnesium Level 1.8 Bedside Glucose 179 Medications Medications Current Medications Metoclopramide HCl (Reglan) 10 mg Q6H PRN IV NAUSEA AND/OR VOMITING; Start at 04:00 Nitroglycerin (Nitroglycerin (Sl Tab) 0.4 Mg) 1 tab Q5M PRN SL CHEST PAIN Last administered on 07/22/16 16:56; Admin Dose 1 TAB; Start 07/22/16 at 04:00 Acetaminophen (Tylenol Tab) 650 mg Q6H PRN PO PAIN LEVEL 1-3 OR FEVER Last administered on 07/26/16 16:03; Admin Dose 650 MG; Start 07/22/16 at 04:00 Aspirin (Halfprin) 81 mg DAILY PO Last administered on 08/02/16 08:55; Admin Dose 81 MG; Start 07/23/16 at 09:00 Hydralazine HCl (Apresoline) 10 mg Q6H PRN IV SBP>160; Start 07/22/16 at 10:00 Atorvastatin Calcium (Lipitor) 80 mg HS PO Last administered on 08/01/16 21:31 ; Admin Dose 80 MG; Start 07/22/16 at 21:00 Alprazolam (Xanax) 0.25 mg Q6H PRN PO ANXIETY; Start 07/22/16 at 11:30 Al Hydrox/Mg Hydrox/Simethicone (Mag-Al Plus) 30 ml Q4H PRN PO GASTROINTESTINAL UPSET; Start 07/22/16 at 11:30 Ondansetron HCl (Zofran Inj) 4 mg Q4H PRN IV NAUSEA AND/OR VOMITING; Start at 11:30 Morphine Sulfate (morphine) 2 mg Q1H PRN IV PAIN Last administered on 17:42; Admin Dose 2 MG; Start 07/25/16 at 16:00 Hydromorphone HCl (Dilaudid) 1 mg Q2 PRN IV PAIN Last administered on 07/31/16 07:43; Admin Dose 1 MG; Start 07/25/16 at 19:00 Diagnostic Test (Pha) (Accu-Chek) 1 ea 02 XX Last administered on 08/02/16 02: 00; Admin Dose 1 EA; Start 07/27/16 at 02:00 Miscellaneous Information 1 ea NOTE XX ; Start 07/26/16 at 12:00 Glucose (Glutose) 15 gm Q15M PRN PO DECREASED GLUCOSE; Start 07/26/16 at 12:00 Glucose (Glutose) 22.5 gm Q15M PRN PO DECREASED GLUCOSE; Start 07/26/16 at 12: 00 Dextrose (D50w Syringe) 25 ml Q15M PRN IV DECREASED GLUCOSE; Start 07/26/16 at 12:00 Dextrose (D50w Syringe) 50 ml Q15M PRN IV DECREASED GLUCOSE; Start 07/26/16 at 12:00 Glucagon (Glucagen) 1 mg Q15M PRN IM DECREASED GLUCOSE; Start 07/26/16 at 12:00 Glucose (Glutose) 15 gm Q15M PRN BUCCAL DECREASED GLUCOSE; Start 07/26/16 at 12 :00 Enoxaparin Sodium (Lovenox) 40 mg DAILY SC Last administered on 08/02/16 09:01 ; Admin Dose 40 MG; Start 07/28/16 at 09:00 Metoprolol Tartrate (Lopressor) 50 mg BID PO Last administered on 08/02/16 08: 56; Admin Dose 50 MG; Start 07/27/16 at 21:00 Insulin Glargine (Lantus) 36 unit DAILY@08 SC Last administered on 08/02/16 08: 03; Admin Dose 36 UNIT; Start 07/29/16 at 08:00 Lisinopril (Zestril) 2.5 mg DAILY PO Last administered on 08/02/16 08:55; Admin Dose 2.5 MG; Start 07/29/16 at 14:00 Famotidine (Pepcid) 20 mg BID PO Last administered on 08/02/16 08:54; Admin Dose 20 MG; Start 07/29/16 at 21:00 Furosemide (Lasix) 40 mg DAILY PO Last administered on 08/02/16 08:55; Admin Dose 40 MG; Start 07/31/16 at 09:00 Senna (Senokot) 2 tab BID PO Last administered on 08/02/16 08:54; Admin Dose 2 TAB; Start 07/31/16 at 09:00 Magnesium Hydroxide (Milk Of Mag) 30 ml BID PRN PO CONSTIPATION Last administered on 08/02/16 05:47; Admin Dose 30 ML; Start 07/30/16 at 20:30 Acetaminophen/ Hydrocodone Bitart ([place] (10/325)) 1 tab Q4H PRN PO PAIN Last administered on 08/02/16 05:42; Admin Dose 1 TAB; Start 07/31/16 at 11:00 Acetaminophen/ Hydrocodone Bitart ([place] (10/325)) 2 tab Q4H PRN PO SEVERE PAIN Last administered on 08/01/16 21:32; Admin Dose 2 TAB; Start 07/31/16 at 11: 00 Potassium Chloride (Klor-Con 10) 10 meq DAILY PO Last administered on 08/02/16 08:55; Admin Dose 10 MEQ; Start 08/01/16 at 09:00 Amiodarone HCl (Cordarone) 400 mg BID PO Last administered on 08/02/16 08:54; Admin Dose 400 MG; Start 07/31/16 at 14:30 NADEGE SPENCER NP Aug 02, 2016 09:34
--- NOTE | 2016-08-02 13:01 | CONS ---
Date/Time of Note Date/Time of Note DATE: 08/02/16 TIME: 12:59 Assessment/Plan Assessment/Plan Additional Assessment/Plan Non-ST elevation [place] CAD status post CABG 07/25/2016 Preserved ejection fraction Acute decompensated diastolic congestive heart failure Diabetes Hypertension Dyslipidemia Paroxysmal atrial fibrillation, currently sinus rhythm -Patient remains in sinus rhythm, decrease amio to 200mg daily. decrease lasix to 20mg daily maintenance dose. cont asa/statin/bb. DC planning Consultation Date/Type/Reason Admit Date/Time Jul 22, 2016 at 14:00 Type of Consultation: cv 24 HR Interval Summary Free Text/Dictation feeling much better, denies BRIT[place] cp. Exam/Review of Systems Vital Signs Vitals Vital Signs Date Time Temp Pulse Resp B/P Pulse Ox O2 Delivery O2 Flow Rate FiO2 08/02/16 08:51 78 08/02/16 07:48 Nasal Cannula 1.0 08/02/16 07:22 98.0 18 117/65 91 Intake and Output 08/01/16 08/01/16 08/02/16 14:59 22:59 06:59 Intake Total 750 ml 240 ml Output Total 600 ml Balance 750 ml -360 ml Exam nad Constitutional: alert, oriented Head: normocephalic Neck: supple Respiratory: other (course bs, no wheeze) Cardiovascular: other (s1s2), regular rate and rhythm Gastrointestinal: bowel sounds, non-tender, soft Extremities: edema (trace) Results Result Diagram: 08/02/16 0600 08/02/16 0600 Results 24 hrs Laboratory Tests Test 08/01/16 17:50 08/01/16 21:30 08/02/16 02:28 08/02/16 06:00 Bedside Glucose 181 222 H 198 White Blood Count 11.1 H Red Blood Count 3.77 L Hemoglobin 11.6 L Hematocrit 33.9 L Mean Corpuscular Volume 89.9 Mean Corpuscular Hemoglobin 30.8 Mean Corpuscular Hemoglobin Concent 34.2 Red Cell Distribution Width 12.1 Platelet Count 417 H Mean Platelet Volume 9.0 Neutrophils % 64.2 Lymphocytes % 25.8 Monocytes % 7.8 Eosinophils % 1.1 Basophils % 0.5 Nucleated Red Blood Cells % 0.0 Neutrophils # 7.1 Lymphocytes # 2.9 Monocytes # 0.9 Eosinophils # 0.1 Basophils # 0.1 Nucleated Red Blood Cells # 0.0 Sodium Level 136 Potassium Level 3.9 Chloride Level 93 L Carbon Dioxide Level 29 Anion Gap 18 H Blood Urea Nitrogen 13 Creatinine 0.74 Glucose Level 177 Calcium Level 9.0 Phosphorus Level 5.2 H Magnesium Level 1.8 Test 08/02/16 07:58 08/02/16 12:12 Bedside Glucose 179 230 H Medications Medications Current Medications Metoclopramide HCl (Reglan) 10 mg Q6H PRN IV NAUSEA AND/OR VOMITING; Start at 04:00 Nitroglycerin (Nitroglycerin (Sl Tab) 0.4 Mg) 1 tab Q5M PRN SL CHEST PAIN Last administered on 07/22/16 16:56; Admin Dose 1 TAB; Start 07/22/16 at 04:00 Acetaminophen (Tylenol Tab) 650 mg Q6H PRN PO PAIN LEVEL 1-3 OR FEVER Last administered on 07/26/16 16:03; Admin Dose 650 MG; Start 07/22/16 at 04:00 Aspirin (Halfprin) 81 mg DAILY PO Last administered on 08/02/16 08:55; Admin Dose 81 MG; Start 07/23/16 at 09:00 Hydralazine HCl (Apresoline) 10 mg Q6H PRN IV SBP>160; Start 07/22/16 at 10:00 Atorvastatin Calcium (Lipitor) 80 mg HS PO Last administered on 08/01/16 21:31 ; Admin Dose 80 MG; Start 07/22/16 at 21:00 Alprazolam (Xanax) 0.25 mg Q6H PRN PO ANXIETY; Start 07/22/16 at 11:30 Al Hydrox/Mg Hydrox/Simethicone (Mag-Al Plus) 30 ml Q4H PRN PO GASTROINTESTINAL UPSET; Start 07/22/16 at 11:30 Ondansetron HCl (Zofran Inj) 4 mg Q4H PRN IV NAUSEA AND/OR VOMITING; Start at 11:30 Morphine Sulfate (morphine) 2 mg Q1H PRN IV PAIN Last administered on 17:42; Admin Dose 2 MG; Start 07/25/16 at 16:00 Hydromorphone HCl (Dilaudid) 1 mg Q2 PRN IV PAIN Last administered on 07/31/16 07:43; Admin Dose 1 MG; Start 07/25/16 at 19:00 Diagnostic Test (Pha) (Accu-Chek) 1 ea 02 XX Last administered on 08/02/16 02: 00; Admin Dose 1 EA; Start 07/27/16 at 02:00 Miscellaneous Information 1 ea NOTE XX ; Start 07/26/16 at 12:00 Glucose (Glutose) 15 gm Q15M PRN PO DECREASED GLUCOSE; Start 07/26/16 at 12:00 Glucose (Glutose) 22.5 gm Q15M PRN PO DECREASED GLUCOSE; Start 07/26/16 at 12: 00 Dextrose (D50w Syringe) 25 ml Q15M PRN IV DECREASED GLUCOSE; Start 07/26/16 at 12:00 Dextrose (D50w Syringe) 50 ml Q15M PRN IV DECREASED GLUCOSE; Start 07/26/16 at 12:00 Glucagon (Glucagen) 1 mg Q15M PRN IM DECREASED GLUCOSE; Start 07/26/16 at 12:00 Glucose (Glutose) 15 gm Q15M PRN BUCCAL DECREASED GLUCOSE; Start 07/26/16 at 12 :00 Enoxaparin Sodium (Lovenox) 40 mg DAILY SC Last administered on 08/02/16 09:01 ; Admin Dose 40 MG; Start 07/28/16 at 09:00 Metoprolol Tartrate (Lopressor) 50 mg BID PO Last administered on 08/02/16 08: 56; Admin Dose 50 MG; Start 07/27/16 at 21:00 Insulin Glargine (Lantus) 36 unit DAILY@08 SC Last administered on 08/02/16 08: 03; Admin Dose 36 UNIT; Start 07/29/16 at 08:00 Lisinopril (Zestril) 2.5 mg DAILY PO Last administered on 08/02/16 08:55; Admin Dose 2.5 MG; Start 07/29/16 at 14:00 Famotidine (Pepcid) 20 mg BID PO Last administered on 08/02/16 08:54; Admin Dose 20 MG; Start 07/29/16 at 21:00 Furosemide (Lasix) 40 mg DAILY PO Last administered on 08/02/16 08:55; Admin Dose 40 MG; Start 07/31/16 at 09:00 Senna (Senokot) 2 tab BID PO Last administered on 08/02/16 08:54; Admin Dose 2 TAB; Start 07/31/16 at 09:00 Magnesium Hydroxide (Milk Of Mag) 30 ml BID PRN PO CONSTIPATION Last administered on 08/02/16 05:47; Admin Dose 30 ML; Start 07/30/16 at 20:30 Acetaminophen/ Hydrocodone Bitart ([place] (10/325)) 1 tab Q4H PRN PO PAIN Last administered on 08/02/16 05:42; Admin Dose 1 TAB; Start 07/31/16 at 11:00 Acetaminophen/ Hydrocodone Bitart ([place] (10/325)) 2 tab Q4H PRN PO SEVERE PAIN Last administered on 08/01/16 21:32; Admin Dose 2 TAB; Start 07/31/16 at 11: 00 Potassium Chloride (Klor-Con 10) 10 meq DAILY PO Last administered on 08/02/16 08:55; Admin Dose 10 MEQ; Start 08/01/16 at 09:00 Amiodarone HCl (Cordarone) 400 mg BID PO Last administered on 08/02/16 08:54; Admin Dose 400 MG; Start 07/31/16 at 14:30 Tucker Fuller DO Aug 02, 2016 13:01
[2016-08-02] MEDS ORDERED: MAGNESIUM SULFATE 2 GM/50 ML 50 ML IVPB ONE (13:30)
[2016-08-02] MEDS: ALPRAZOLAM 0.25 MG TAB PO PRN (20:44)
[2016-08-02] MEDS: ATORVASTATIN 80 MG TAB PO SCH (20:44)
[2016-08-03] VITALS (12 sets, daily range): BP systolic 105–134; BP diastolic 73–84; PULSE 68–84; RESP 16–20
[2016-08-03] MEDS: ACCU-CHEK XX SCH (02:00)
[2016-08-03] MEDS: HYDROCODONE/APAP (10/325) TAB PO PRN ×3 (04:13→18:44)
[2016-08-03] MEDS: MAGNESIUM HYDROXIDE 30ML CUP PO PRN ×2 (04:13→11:10)
[2016-08-03 07:19] LABS: ADD SCAN DIFF NO
[2016-08-03 07:26] LABS: BASOPHILS % 0.4 % (0.0-2.0); EOSINOPHILS # 0.1 10^3/ul (0.0-0.5); EOSINOPHILS % 1.1 % (0.0-7.0); HEMATOCRIT 33.7 % (42.0-52.0); HEMOGLOBIN 11.6 g/dl (14.0-18.0); LYMPHOCYTES # 2.8 10^3/ul (0.8-2.9); LYMPHOCYTES % 27.4 % (15.0-51.0); MEAN CORPUSCULAR HEMOGLOBIN 30.8 pg (29.0-33.0); MEAN CORPUSCULAR HGB CONC 34.4 g/dl (32.0-37.0); MEAN CORPUSCULAR VOLUME 89.4 fl (82.0-101.0); MEAN PLATELET VOLUME 8.9 fl (7.4-10.4); MONOCYTE # 0.7 10^3/ul (0.3-0.9); MONOCYTES % 7.3 % (0.0-11.0); NEUTROPHIL # 6.4 10^3/ul (1.6-7.5); NEUTROPHILS % 63.3 % (39.0-77.0); PLATELET COUNT 437 10^3/UL (140-415); RED BLOOD COUNT 3.77 10^6/ul (4.70-6.10); WHITE BLOOD COUNT 10.1 10^3/ul (4.8-10.8)
[2016-08-03 07:32] LABS: POTASSIUM 4.1 mmol/L (3.5-5.1)
[2016-08-03 07:34] LABS: CREATININE 0.74 mg/dl (0.61-1.24)
[2016-08-03 07:35] LABS: CALCIUM 8.9 mg/dl (8.4-10.2)
[2016-08-03] MEDS: INSULIN ASPART [NOVOLOG] 3 ML PEN SC SCH ×7 (07:53→20:49)
[2016-08-03] MEDS: ENOXAPARIN 40 MG/0.4 ML SYG SC SCH (08:45)
[2016-08-03] MEDS: FUROSEMIDE 20 MG TAB PO SCH (08:46)
[2016-08-03] MEDS: LISINOPRIL 5 MG TAB PO SCH (08:47)
[2016-08-03] MEDS: ASPIRIN (EC) 81 MG TAB PO SCH (08:47)
[2016-08-03] MEDS: FAMOTIDINE 20 MG TAB PO SCH ×2 (08:47→20:41)
[2016-08-03] MEDS: AMIODARONE 200 MG TAB PO SCH (08:47)
[2016-08-03] MEDS: SENNA TAB PO SCH ×2 (08:47→20:49)
[2016-08-03] MEDS: POTASSIUM CHLORIDE (SR) 10 MEQ TAB PO SCH (08:47)
[2016-08-03] MEDS: METOPROLOL 50 MG TAB PO SCH ×2 (08:48→20:41)
[2016-08-03] MEDS: INSULIN GLARGINE [LANtus] 3 ML PEN SC SCH (10:54)
--- NOTE | 2016-08-03 12:28 | CONS ---
Date/Time of Note Date/Time of Note DATE: 08/03/16 TIME: 12:24 Assessment/Plan Assessment/Plan Additional Assessment/Plan Assessment recommendations; 1. Patient admitted for acute TX underwent CABG surgery. 2. Left lower lobe atelectasis/infiltrate. Causing exertional hypoxemia and shortness of breath. Obtain a CT scan of chest without contrast. Add chest PT 4 times daily to left lower lobe. Add cefepime 1 g IV every 12 hours. Further recommendations to be made once CT chest is obtained. Consultation Date/Type/Reason Admit Date/Time Jul 22, 2016 at 14:00 Date of Consultation: Aug 03, 2016 Type of Consultation: Pulmonary Reason for Consultation Pulmonary consultations requested for evaluation of shortness of breath. History presenting any; patient is a pleasant 51-year-old male who came into the emergency room on of last month with acute chest pain the patient was diagnosed with acute TX underwent emergent coronary angiography which was uneventful. Patient has now been brought to the telemetry unit but however he still complaining of shortness of breath upon exertion and complains of cough with scant sputum production. Denies any chest pain, wheezing any high fever or chills. Past medical history; 1. History of diabetes. 2. Recent CABG surgery during current hospital stay. Medications; were reviewed. Allergies; are none. Social history; remote history of scant smoking. Most of alcohol or drug abuse. Family history; patient is single he has 3 children. Mother has coronary artery disease. Occupational history; patient is a building and construction manager. Review of systems; denies any headache, seizures, visual changes, hearing loss. Any sinus symptoms. Any sore throat, dysphagia or odynophagia. Any chest pain, angina. Complains of cough with no sputum production. Denies any hemoptysis. Denies any abdominal pain, nausea vomiting. Any urinary symptoms. Any melena hematochezia. Any edema. Denies any orthopnea. Does complain of dyspnea on exertion. ENT: no complaints Respiratory: no complaints Cardiovascular: no complaints Gastrointestinal: no complaints Genitourinary: no complaints Musculoskeletal: no complaints Skin: no complaints Neurologic: no complaints Past Medical History Medical History: diabetes, high cholesterol, hypertension Past Surgical History Past Surgical Hx: no surgical history Social History Alcohol Use: occasionally Smoking Status: Never smoker Drug Use: none Exam/Review of Systems Vital Signs Vitals Vital Signs Date Time Temp Pulse Resp B/P Pulse Ox O2 Delivery O2 Flow Rate FiO2 08/03/16 11:26 97.7 74 17 105/73 95 08/03/16 01:04 1.0 08/02/16 19:45 Nasal Cannula Intake and Output 08/02/16 08/02/16 08/03/16 15:00 23:00 07:00 Intake Total 240 ml 2050 ml 400 ml Output Total 500 ml Balance 240 ml 2050 ml -100 ml Exam HEENT exam; supple neck, no JVD. No lymphadenopathy. Midline trachea. No thyromegaly. Pharynx is clear. No neck masses. Patient has fair dentition. Pupils are midsize and reactive to light. Extraocular movements are intact. Chest exam; diminished breath sound left lower lobe prison up. With bronchial breath sounds. Rest of the lung ocampo are clear. S1-S2 audible, no murmurs. Regular rhythm. There is a dressing applied over the sternum. Abdomen exam : soft, nontender. No organomegaly. Bowel sounds audible. Extremity exam is; no peripheral edema. Pulses 1+ bilaterally. No clubbing. BORDERER examination; cranial nerves are intact, no motor deficit. Results Result Diagram: 08/03/16 0635 08/03/16 0635 Results 24 hrs Laboratory Tests Test 08/02/16 17:19 08/02/16 20:47 08/03/16 06:35 08/03/16 07:52 Bedside Glucose 136 167 134 White Blood Count 10.1 Red Blood Count 3.77 L Hemoglobin 11.6 L Hematocrit 33.7 L Mean Corpuscular Volume 89.4 Mean Corpuscular Hemoglobin 30.8 Mean Corpuscular Hemoglobin Concent 34.4 Red Cell Distribution Width 12.0 Platelet Count 437 H Mean Platelet Volume 8.9 Neutrophils % 63.3 Lymphocytes % 27.4 Monocytes % 7.3 Eosinophils % 1.1 Basophils % 0.4 Nucleated Red Blood Cells % 0.0 Neutrophils # 6.4 Lymphocytes # 2.8 Monocytes # 0.7 Eosinophils # 0.1 Basophils # 0.0 Nucleated Red Blood Cells # 0.0 Sodium Level 136 Potassium Level 4.1 Chloride Level 98 Carbon Dioxide Level 31 Anion Gap 11 # Blood Urea Nitrogen 13 Creatinine 0.74 Glucose Level 136 # Calcium Level 8.9 Magnesium Level 2.2 Test 08/03/16 11:15 Bedside Glucose 185 Medications Medications Current Medications Metoclopramide HCl (Reglan) 10 mg Q6H PRN IV NAUSEA AND/OR VOMITING; Start at 04:00 Nitroglycerin (Nitroglycerin (Sl Tab) 0.4 Mg) 1 tab Q5M PRN SL CHEST PAIN Last administered on 07/22/16 16:56; Admin Dose 1 TAB; Start 07/22/16 at 04:00 Acetaminophen (Tylenol Tab) 650 mg Q6H PRN PO PAIN LEVEL 1-3 OR FEVER Last administered on 07/26/16 16:03; Admin Dose 650 MG; Start 07/22/16 at 04:00 Aspirin (Halfprin) 81 mg DAILY PO Last administered on 08/03/16 08:47; Admin Dose 81 MG; Start 07/23/16 at 09:00 Hydralazine HCl (Apresoline) 10 mg Q6H PRN IV SBP>160; Start 07/22/16 at 10:00 Atorvastatin Calcium (Lipitor) 80 mg HS PO Last administered on 08/02/16 20:44 ; Admin Dose 80 MG; Start 07/22/16 at 21:00 Alprazolam (Xanax) 0.25 mg Q6H PRN PO ANXIETY Last administered on 08/02/16 20: 44; Admin Dose 0.25 MG; Start 07/22/16 at 11:30 Al Hydrox/Mg Hydrox/Simethicone (Mag-Al Plus) 30 ml Q4H PRN PO GASTROINTESTINAL UPSET; Start 07/22/16 at 11:30 Ondansetron HCl (Zofran Inj) 4 mg Q4H PRN IV NAUSEA AND/OR VOMITING; Start at 11:30 Morphine Sulfate (morphine) 2 mg Q1H PRN IV PAIN Last administered on 17:42; Admin Dose 2 MG; Start 07/25/16 at 16:00 Hydromorphone HCl (Dilaudid) 1 mg Q2 PRN IV PAIN Last administered on 07/31/16 07:43; Admin Dose 1 MG; Start 07/25/16 at 19:00 Diagnostic Test (Pha) (Accu-Chek) 1 ea 02 XX Last administered on 08/02/16 02: 00; Admin Dose 1 EA; Start 07/27/16 at 02:00 Miscellaneous Information 1 ea NOTE XX ; Start 07/26/16 at 12:00 Glucose (Glutose) 15 gm Q15M PRN PO DECREASED GLUCOSE; Start 07/26/16 at 12:00 Glucose (Glutose) 22.5 gm Q15M PRN PO DECREASED GLUCOSE; Start 07/26/16 at 12: 00 Dextrose (D50w Syringe) 25 ml Q15M PRN IV DECREASED GLUCOSE; Start 07/26/16 at 12:00 Dextrose (D50w Syringe) 50 ml Q15M PRN IV DECREASED GLUCOSE; Start 07/26/16 at 12:00 Glucagon (Glucagen) 1 mg Q15M PRN IM DECREASED GLUCOSE; Start 07/26/16 at 12:00 Glucose (Glutose) 15 gm Q15M PRN BUCCAL DECREASED GLUCOSE; Start 07/26/16 at 12 :00 Enoxaparin Sodium (Lovenox) 40 mg DAILY SC Last administered on 08/03/16 08:45 ; Admin Dose 40 MG; Start 07/28/16 at 09:00 Metoprolol Tartrate (Lopressor) 50 mg BID PO Last administered on 08/03/16 08: 48; Admin Dose 50 MG; Start 07/27/16 at 21:00 Insulin Glargine (Lantus) 36 unit DAILY@08 SC Last administered on 08/03/16 10: 54; Admin Dose 36 UNIT; Start 07/29/16 at 08:00 Lisinopril (Zestril) 2.5 mg DAILY PO Last administered on 08/03/16 08:47; Admin Dose 2.5 MG; Start 07/29/16 at 14:00 Famotidine (Pepcid) 20 mg BID PO Last administered on 08/03/16 08:47; Admin Dose 20 MG; Start 07/29/16 at 21:00 Senna (Senokot) 2 tab BID PO Last administered on 08/03/16 08:47; Admin Dose 2 TAB; Start 07/31/16 at 09:00 Magnesium Hydroxide (Milk Of Mag) 30 ml BID PRN PO CONSTIPATION Last administered on 08/03/16 11:10; Admin Dose 30 ML; Start 07/30/16 at 20:30 Acetaminophen/ Hydrocodone Bitart ([place] (10/325)) 1 tab Q4H PRN PO PAIN Last administered on 08/03/16 04:13; Admin Dose 1 TAB; Start 07/31/16 at 11:00 Acetaminophen/ Hydrocodone Bitart ([place] (10)) 2 tab Q4H PRN PO SEVERE PAIN Last administered on 08/02/16 18:43; Admin Dose 2 TAB; Start 07/31/16 at 11: 00 Potassium Chloride (Klor-Con 10) 10 meq DAILY PO Last administered on 08/03/16 08:47; Admin Dose 10 MEQ; Start 08/01/16 at 09:00 Amiodarone HCl (Cordarone) 200 mg DAILY PO Last administered on 08/03/16 08:47 ; Admin Dose 200 MG; Start 08/03/16 at 09:00 Furosemide (Lasix) 20 mg DAILY PO Last administered on 08/03/16 08:46; Admin Dose 20 MG; Start 08/03/16 at 09:00 TEZ BENSON Aug 03, 2016 12:28
--- NOTE | 2016-08-03 12:30 | PN ---
Date/Time of Note Date/Time of Note DATE: 08/03/16 TIME: 12:27 Assessment/Plan VTE Prophylaxis VTE Prophylaxis Intervention: LMWH Lines/Catheters IV [facility] Peripheral IV Urinary Cath still in place: No Assessment/Plan Chief Complaint/Hosp Course 1. Non-ST elevation myocardial infarction. Status post cardiac catheterization revealing 2-vessel coronary artery disease. S/P coronary artery bypass graft on 07/25/2016 (left internal mammary artery to left anterior descending and saphenous vein graft to the PDA). Continue postoperative care. 2. Type 2 diabetes mellitus, uncontrolled. Hemoglobin A1c 10.3. Continue sliding scale insulin along with basal insulin and Lantus insulin. Will adjust insulin dosing to obtain optimum pressure control. 5. Dyslipidemia. The patient has elevated total cholesterol and elevated triglycerides, along with suboptimal LDL and HDL. The patient will be continued on statins. 6. Essential hypertension. The patient will be maintained on antihypertensives. Blood pressure fairly well controlled. 7. Paroxysmal atrial fibrillation. Currently in sinus rhythm. On amiodarone. 8. Vitamin D deficiency. The patient on vitamin D supplements. 9. Possible LLL pneumonia. Pulmonology following. The patient on antibiotics. 10. Fluid, electrolytes and nutrition. Carbohydrate controlled, low cholesterol diet. 11. Deep venous thrombosis prophylaxis. SQ Lovenox. 12. Gastrointestinal prophylaxis. Histamine 2 receptor blockers. 13. Plan. Continue postop care. Continue pain control. Continue antibiotics. Await chest CT scan. The case was discussed with Dr. Yeboah. Problems: Subjective 24 Hr Interval Summary Free Text/Dictation Dyspnea with exertion. Constipated. Exam/Review of Systems Vital Signs Vitals Vital Signs Date Time Temp Pulse Resp B/P Pulse Ox O2 Delivery O2 Flow Rate FiO2 08/03/16 12:22 75 08/03/16 11:26 97.7 17 105/73 95 08/03/16 01:04 1.0 08/02/16 19:45 Nasal Cannula Intake and Output 08/02/16 08/02/16 08/03/16 14:59 22:59 06:59 Intake Total 240 ml 2050 ml 400 ml Output Total 500 ml Balance 240 ml 2050 ml -100 ml Exam GENERAL: This is an obese male lying in bed in no apparent distress. HEENT: Head normocephalic and atraumatic. Eyes: Anicteric sclerae. Conjunctivae clear. ENT: Nasal septum is midline. Oral mucosa is moist. NECK: Supple. No JVD noticed. RESPIRATORY: Bilaterally clear to auscultation. No adventitious sounds heard. No use of accessory muscles of respiration. CARDIAC: Regular rate and rhythm. No murmurs heard. Sternal wall dressing. ABDOMEN: Soft, nontender and nondistended. Bowel sounds positive in all 4 quadrants. GENITOURINARY: Deferred. EXTREMITIES: No cyanosis, no clubbing, no edema. Peripheral pulses palpable. Left leg vein harvest site healing well. NEUROLOGIC: The patient is awake, alert and oriented. Cranial nerves are grossly intact. Results Result Diagram: 08/03/16 0635 08/03/16 0635 Results 24 hrs Laboratory Tests Test 08/02/16 17:19 08/02/16 20:47 08/03/16 06:35 08/03/16 07:52 Bedside Glucose 136 167 134 White Blood Count 10.1 Red Blood Count 3.77 L Hemoglobin 11.6 L Hematocrit 33.7 L Mean Corpuscular Volume 89.4 Mean Corpuscular Hemoglobin 30.8 Mean Corpuscular Hemoglobin Concent 34.4 Red Cell Distribution Width 12.0 Platelet Count 437 H Mean Platelet Volume 8.9 Neutrophils % 63.3 Lymphocytes % 27.4 Monocytes % 7.3 Eosinophils % 1.1 Basophils % 0.4 Nucleated Red Blood Cells % 0.0 Neutrophils # 6.4 Lymphocytes # 2.8 Monocytes # 0.7 Eosinophils # 0.1 Basophils # 0.0 Nucleated Red Blood Cells # 0.0 Sodium Level 136 Potassium Level 4.1 Chloride Level 98 Carbon Dioxide Level 31 Anion Gap 11 # Blood Urea Nitrogen 13 Creatinine 0.74 Glucose Level 136 # Calcium Level 8.9 Magnesium Level 2.2 Test 08/03/16 11:15 Bedside Glucose 185 Medications Medications Current Medications Metoclopramide HCl (Reglan) 10 mg Q6H PRN IV NAUSEA AND/OR VOMITING; Start at 04:00 Nitroglycerin (Nitroglycerin (Sl Tab) 0.4 Mg) 1 tab Q5M PRN SL CHEST PAIN Last administered on 07/22/16 16:56; Admin Dose 1 TAB; Start 07/22/16 at 04:00 Acetaminophen (Tylenol Tab) 650 mg Q6H PRN PO PAIN LEVEL 1-3 OR FEVER Last administered on 07/26/16 16:03; Admin Dose 650 MG; Start 07/22/16 at 04:00 Aspirin (Halfprin) 81 mg DAILY PO Last administered on 08/03/16 08:47; Admin Dose 81 MG; Start 07/23/16 at 09:00 Hydralazine HCl (Apresoline) 10 mg Q6H PRN IV SBP>160; Start 07/22/16 at 10:00 Atorvastatin Calcium (Lipitor) 80 mg HS PO Last administered on 08/02/16 20:44 ; Admin Dose 80 MG; Start 07/22/16 at 21:00 Alprazolam (Xanax) 0.25 mg Q6H PRN PO ANXIETY Last administered on 08/02/16 20: 44; Admin Dose 0.25 MG; Start 07/22/16 at 11:30 Al Hydrox/Mg Hydrox/Simethicone (Mag-Al Plus) 30 ml Q4H PRN PO GASTROINTESTINAL UPSET; Start 07/22/16 at 11:30 Ondansetron HCl (Zofran Inj) 4 mg Q4H PRN IV NAUSEA AND/OR VOMITING; Start at 11:30 Morphine Sulfate (morphine) 2 mg Q1H PRN IV PAIN Last administered on 17:42; Admin Dose 2 MG; Start 07/25/16 at 16:00 Hydromorphone HCl (Dilaudid) 1 mg Q2 PRN IV PAIN Last administered on 07/31/16 07:43; Admin Dose 1 MG; Start 07/25/16 at 19:00 Diagnostic Test (Pha) (Accu-Chek) 1 ea 02 XX Last administered on 08/02/16 02: 00; Admin Dose 1 EA; Start 07/27/16 at 02:00 Miscellaneous Information 1 ea NOTE XX ; Start 07/26/16 at 12:00 Glucose (Glutose) 15 gm Q15M PRN PO DECREASED GLUCOSE; Start 07/26/16 at 12:00 Glucose (Glutose) 22.5 gm Q15M PRN PO DECREASED GLUCOSE; Start 07/26/16 at 12: 00 Dextrose (D50w Syringe) 25 ml Q15M PRN IV DECREASED GLUCOSE; Start 07/26/16 at 12:00 Dextrose (D50w Syringe) 50 ml Q15M PRN IV DECREASED GLUCOSE; Start 07/26/16 at 12:00 Glucagon (Glucagen) 1 mg Q15M PRN IM DECREASED GLUCOSE; Start 07/26/16 at 12:00 Glucose (Glutose) 15 gm Q15M PRN BUCCAL DECREASED GLUCOSE; Start 07/26/16 at 12 :00 Enoxaparin Sodium (Lovenox) 40 mg DAILY SC Last administered on 08/03/16 08:45 ; Admin Dose 40 MG; Start 07/28/16 at 09:00 Metoprolol Tartrate (Lopressor) 50 mg BID PO Last administered on 08/03/16 08: 48; Admin Dose 50 MG; Start 07/27/16 at 21:00 Insulin Glargine (Lantus) 36 unit DAILY@08 SC Last administered on 08/03/16 10: 54; Admin Dose 36 UNIT; Start 07/29/16 at 08:00 Lisinopril (Zestril) 2.5 mg DAILY PO Last administered on 08/03/16 08:47; Admin Dose 2.5 MG; Start 07/29/16 at 14:00 Famotidine (Pepcid) 20 mg BID PO Last administered on 08/03/16 08:47; Admin Dose 20 MG; Start 07/29/16 at 21:00 Senna (Senokot) 2 tab BID PO Last administered on 08/03/16 08:47; Admin Dose 2 TAB; Start 07/31/16 at 09:00 Magnesium Hydroxide (Milk Of Mag) 30 ml BID PRN PO CONSTIPATION Last administered on 08/03/16 11:10; Admin Dose 30 ML; Start 07/30/16 at 20:30 Acetaminophen/ Hydrocodone Bitart ([place] (10/325)) 1 tab Q4H PRN PO PAIN Last administered on 08/03/16 04:13; Admin Dose 1 TAB; Start 07/31/16 at 11:00 Acetaminophen/ Hydrocodone Bitart ([place] (10/325)) 2 tab Q4H PRN PO SEVERE PAIN Last administered on 08/02/16 18:43; Admin Dose 2 TAB; Start 07/31/16 at 11: 00 Potassium Chloride (Klor-Con 10) 10 meq DAILY PO Last administered on 08/03/16 08:47; Admin Dose 10 MEQ; Start 08/01/16 at 09:00 Amiodarone HCl (Cordarone) 200 mg DAILY PO Last administered on 08/03/16 08:47 ; Admin Dose 200 MG; Start 08/03/16 at 09:00 Furosemide 20 mg 20 mg DAILY PO Last administered on 08/03/16 08:46; Admin Dose 20 MG; Start 08/03/16 at 09:00 Cefepime HCl (Maxipime 1gm/50 ml (Pmx)) 50 ml @ 100 mls/hr Q12 IVPB ; Start 08/03/16 at 12:30; Status UNV [employer] Aug 03, 2016 12:30
--- NOTE | 2016-08-03 12:49 | CONS ---
Date/Time of Note Date/Time of Note DATE: 08/03/16 TIME: 12:47 Assessment/Plan Assessment/Plan Additional Assessment/Plan Non-ST elevation [place] CAD status post CABG 07/25/2016 Preserved ejection fraction Acute decompensated diastolic congestive heart failure Diabetes Hypertension Dyslipidemia Paroxysmal atrial fibrillation, currently sinus rhythm Hypoxia -Patient remains in sinus rhythm, continue Lasix to 20mg daily maintenance dose. cont asa/statin/bb. Patient with recurrent hypoxia with ambulation. Chest x-ray reviewed with elevated left hemidiaphragm. Discussed with our pulmonary colleague, patient plan for CT chest, possible infiltrate. Consultation Date/Type/Reason Admit Date/Time Jul 22, 2016 at 14:00 Type of Consultation: cv 24 HR Interval Summary Free Text/Dictation Patient denies shortness of breath or chest pain. Still having hypoxia with ambulation Exam/Review of Systems Vital Signs Vitals Vital Signs Date Time Temp Pulse Resp B/P Pulse Ox O2 Delivery O2 Flow Rate FiO2 08/03/16 12:22 75 08/03/16 11:26 97.7 17 105/73 95 08/03/16 01:04 1.0 08/02/16 19:45 Nasal Cannula Intake and Output 08/02/16 08/02/16 08/03/16 15:00 23:00 07:00 Intake Total 240 ml 2050 ml 400 ml Output Total 500 ml Balance 240 ml 2050 ml -100 ml Exam No apparent distress Constitutional: alert, obese, oriented Head: normocephalic Neck: supple Respiratory: other (Coarse breath sounds bilaterally, no wheezing) Cardiovascular: other (S1-S2 heard), regular rate and rhythm Gastrointestinal: bowel sounds, non-tender, other (No guarding), soft Extremities: edema (Trace), other (No cyanosis) Results Result Diagram: 08/03/16 0635 08/03/16 0635 Results 24 hrs Laboratory Tests Test 08/02/16 17:19 08/02/16 20:47 08/03/16 06:35 08/03/16 07:52 Bedside Glucose 136 167 134 White Blood Count 10.1 Red Blood Count 3.77 L Hemoglobin 11.6 L Hematocrit 33.7 L Mean Corpuscular Volume 89.4 Mean Corpuscular Hemoglobin 30.8 Mean Corpuscular Hemoglobin Concent 34.4 Red Cell Distribution Width 12.0 Platelet Count 437 H Mean Platelet Volume 8.9 Neutrophils % 63.3 Lymphocytes % 27.4 Monocytes % 7.3 Eosinophils % 1.1 Basophils % 0.4 Nucleated Red Blood Cells % 0.0 Neutrophils # 6.4 Lymphocytes # 2.8 Monocytes # 0.7 Eosinophils # 0.1 Basophils # 0.0 Nucleated Red Blood Cells # 0.0 Sodium Level 136 Potassium Level 4.1 Chloride Level 98 Carbon Dioxide Level 31 Anion Gap 11 # Blood Urea Nitrogen 13 Creatinine 0.74 Glucose Level 136 # Calcium Level 8.9 Magnesium Level 2.2 Test 08/03/16 11:15 Bedside Glucose 185 Medications Medications Current Medications Metoclopramide HCl (Reglan) 10 mg Q6H PRN IV NAUSEA AND/OR VOMITING; Start at 04:00 Nitroglycerin (Nitroglycerin (Sl Tab) 0.4 Mg) 1 tab Q5M PRN SL CHEST PAIN Last administered on 07/22/16 16:56; Admin Dose 1 TAB; Start 07/22/16 at 04:00 Acetaminophen (Tylenol Tab) 650 mg Q6H PRN PO PAIN LEVEL 1-3 OR FEVER Last administered on 07/26/16 16:03; Admin Dose 650 MG; Start 07/22/16 at 04:00 Aspirin (Halfprin) 81 mg DAILY PO Last administered on 08/03/16 08:47; Admin Dose 81 MG; Start 07/23/16 at 09:00 Hydralazine HCl (Apresoline) 10 mg Q6H PRN IV SBP>160; Start 07/22/16 at 10:00 Atorvastatin Calcium (Lipitor) 80 mg HS PO Last administered on 08/02/16 20:44 ; Admin Dose 80 MG; Start 07/22/16 at 21:00 Alprazolam (Xanax) 0.25 mg Q6H PRN PO ANXIETY Last administered on 08/02/16 20: 44; Admin Dose 0.25 MG; Start 07/22/16 at 11:30 Al Hydrox/Mg Hydrox/Simethicone (Mag-Al Plus) 30 ml Q4H PRN PO GASTROINTESTINAL UPSET; Start 07/22/16 at 11:30 Ondansetron HCl (Zofran Inj) 4 mg Q4H PRN IV NAUSEA AND/OR VOMITING; Start at 11:30 Morphine Sulfate (morphine) 2 mg Q1H PRN IV PAIN Last administered on 17:42; Admin Dose 2 MG; Start 07/25/16 at 16:00 Hydromorphone HCl (Dilaudid) 1 mg Q2 PRN IV PAIN Last administered on 07/31/16 07:43; Admin Dose 1 MG; Start 07/25/16 at 19:00 Diagnostic Test (Pha) (Accu-Chek) 1 ea 02 XX Last administered on 08/02/16 02: 00; Admin Dose 1 EA; Start 07/27/16 at 02:00 Miscellaneous Information 1 ea NOTE XX ; Start 07/26/16 at 12:00 Glucose (Glutose) 15 gm Q15M PRN PO DECREASED GLUCOSE; Start 07/26/16 at 12:00 Glucose (Glutose) 22.5 gm Q15M PRN PO DECREASED GLUCOSE; Start 07/26/16 at 12: 00 Dextrose (D50w Syringe) 25 ml Q15M PRN IV DECREASED GLUCOSE; Start 07/26/16 at 12:00 Dextrose (D50w Syringe) 50 ml Q15M PRN IV DECREASED GLUCOSE; Start 07/26/16 at 12:00 Glucagon (Glucagen) 1 mg Q15M PRN IM DECREASED GLUCOSE; Start 07/26/16 at 12:00 Glucose (Glutose) 15 gm Q15M PRN BUCCAL DECREASED GLUCOSE; Start 07/26/16 at 12 :00 Enoxaparin Sodium (Lovenox) 40 mg DAILY SC Last administered on 08/03/16 08:45 ; Admin Dose 40 MG; Start 07/28/16 at 09:00 Metoprolol Tartrate (Lopressor) 50 mg BID PO Last administered on 08/03/16 08: 48; Admin Dose 50 MG; Start 07/27/16 at 21:00 Insulin Glargine (Lantus) 36 unit DAILY@08 SC Last administered on 08/03/16 10: 54; Admin Dose 36 UNIT; Start 07/29/16 at 08:00 Lisinopril (Zestril) 2.5 mg DAILY PO Last administered on 08/03/16 08:47; Admin Dose 2.5 MG; Start 07/29/16 at 14:00 Famotidine (Pepcid) 20 mg BID PO Last administered on 08/03/16 08:47; Admin Dose 20 MG; Start 07/29/16 at 21:00 Senna (Senokot) 2 tab BID PO Last administered on 08/03/16 08:47; Admin Dose 2 TAB; Start 07/31/16 at 09:00 Magnesium Hydroxide (Milk Of Mag) 30 ml BID PRN PO CONSTIPATION Last administered on 08/03/16 11:10; Admin Dose 30 ML; Start 07/30/16 at 20:30 Acetaminophen/ Hydrocodone Bitart ([place] (10/325)) 1 tab Q4H PRN PO PAIN Last administered on 08/03/16 04:13; Admin Dose 1 TAB; Start 07/31/16 at 11:00 Acetaminophen/ Hydrocodone Bitart ([place] (10/325)) 2 tab Q4H PRN PO SEVERE PAIN Last administered on 08/02/16 18:43; Admin Dose 2 TAB; Start 07/31/16 at 11: 00 Potassium Chloride (Klor-Con 10) 10 meq DAILY PO Last administered on 08/03/16 08:47; Admin Dose 10 MEQ; Start 08/01/16 at 09:00 Amiodarone HCl (Cordarone) 200 mg DAILY PO Last administered on 08/03/16 08:47 ; Admin Dose 200 MG; Start 08/03/16 at 09:00 Furosemide 20 mg 20 mg DAILY PO Last administered on 08/03/16 08:46; Admin Dose 20 MG; Start 08/03/16 at 09:00 Cefepime HCl (Maxipime 1gm/50 ml (Pmx)) 50 ml @ 100 mls/hr Q12 IVPB ; Start 08/03/16 at 14:00 Magnesium Citrate (Citroma) 300 ml ONCE ONCE PO ; Start 08/03/16 at 14:00; Stop 08/03/16 at 14:01 Tucker Fuller DO Aug 03, 2016 12:49
[2016-08-03] MEDS: CEFEPIME 1GM/50 ML (PMX) 50 ML IVPB SCH ×2 (13:54→20:42)
[2016-08-03] MEDS ORDERED: MAGNESIUM CITRATE 300 ML BTL PO ONE (14:00)
--- NOTE | 2016-08-03 14:59 | RADRPT ---
PROCEDURE: CT Chest without contrast. CLINICAL INDICATION: Shortness of breath. Recent cardiac surgery. TECHNIQUE: Helical axial sections were obtained through the chest without intravenous contrast enh ancement. Coronal and sagittal reformatted images were obtained from the axial source images. Total exam DLP is 720 7117 mGy-cm. CTDIvol is 16.78 mGy. One or more of the following dose reduction t echniques were used: Automated exposure control, adjustment of the mA and/or kV according to patient size, use of iterative reconstruction technique. COMPARISON: Chest x-ray dated 08/01/2016. FINDINGS: There is air space disease throughout most of the left lower lobe consistent with atelectasis or pne umonia. There is mild scarring or atelectasis in both lung apices posteriorly. The lungs are other martin clear with no other airspace or interstitial disease. There is no pulmonary nodule or mass lesion. There is no mediastinal or hilar lymphadenopathy or mass. There is no axillary, supraclavicular, or internal mammary lymphadenopathy. The thoracic aorta is not dilated. There is calcification in the aorta consistent with atherosclero sis. The heart is mildly enlarged. There has been recent median sternotomy with sternal wires and medias tinal clips noted. There is gas within the mediastinum anteriorly related to the recent surgery. There is a small left pleural effusion. There is no right pleural effusion and there is no pericard ial effusion. Images through the upper abdomen demonstrate normal visualized portions of the liver, spleen, and ad renals. There are mild degenerative changes of the spine. There is no fracture or lytic lesion. IMPRESSION: 1. Air space disease throughout most of the left lower lobe consistent with atelectasis or pneumoni a. 2. Mild scarring or atelectasis in both lung apices posteriorly. 3. Atherosclerosis. 4. Mild cardiomegaly. 5. Recent cardiac surgery. 6. Small left pleural effusion. 7. Mild degenerative changes of the spine. 8. Otherwise unremarkable study. RPTAT: QQ .Wolfgang Garrett MD, MD Date Time Electronically viewed and signed by .Wolfgang Garrett MD, MD on 08/03/2016 14:59 .R/
[2016-08-03] MEDS: ATORVASTATIN 80 MG TAB PO SCH (20:41)
[2016-08-03] MEDS: ALPRAZOLAM 0.25 MG TAB PO PRN (20:41)
[2016-08-04] VITALS (13 sets, daily range): BP systolic 94–138; BP diastolic 55–80; PULSE 67–83; RESP 17–20
[2016-08-04] MEDS: ACCU-CHEK XX SCH (02:00)
[2016-08-04] MEDS: HYDROCODONE/APAP (10/325) TAB PO PRN ×3 (02:01→18:50)
[2016-08-04] MEDS: INSULIN ASPART [NOVOLOG] 3 ML PEN SC SCH ×7 (07:55→20:58)
[2016-08-04] MEDS: INSULIN GLARGINE [LANtus] 3 ML PEN SC SCH (07:55)
[2016-08-04] MEDS: FAMOTIDINE 20 MG TAB PO SCH ×2 (08:13→21:05)
[2016-08-04] MEDS: POTASSIUM CHLORIDE (SR) 10 MEQ TAB PO SCH (08:13)
[2016-08-04] MEDS: ASPIRIN (EC) 81 MG TAB PO SCH (08:13)
[2016-08-04] MEDS: AMIODARONE 200 MG TAB PO SCH (08:13)
[2016-08-04 08:14] LABS: ADD SCAN DIFF NO
[2016-08-04] MEDS: SENNA TAB PO SCH ×2 (08:14→21:05)
[2016-08-04] MEDS: METOPROLOL 50 MG TAB PO SCH ×2 (08:14→21:06)
[2016-08-04] MEDS: LISINOPRIL 5 MG TAB PO SCH (08:15)
[2016-08-04] MEDS: FUROSEMIDE 20 MG TAB PO SCH (08:15)
[2016-08-04] MEDS: ENOXAPARIN 40 MG/0.4 ML SYG SC SCH (08:19)
[2016-08-04 08:20] LABS: BASOPHIL # 0.1 10^3/ul (0.0-0.1); BASOPHILS % 0.6 % (0.0-2.0); EOSINOPHILS # 0.1 10^3/ul (0.0-0.5); EOSINOPHILS % 1.2 % (0.0-7.0); HEMATOCRIT 33.9 % (42.0-52.0); HEMOGLOBIN 11.2 g/dl (14.0-18.0); LYMPHOCYTES # 2.9 10^3/ul (0.8-2.9); LYMPHOCYTES % 32.4 % (15.0-51.0); MEAN CORPUSCULAR HEMOGLOBIN 30.4 pg (29.0-33.0); MEAN CORPUSCULAR VOLUME 91.9 fl (82.0-101.0); MEAN PLATELET VOLUME 8.8 fl (7.4-10.4); MONOCYTE # 0.7 10^3/ul (0.3-0.9); MONOCYTES % 7.7 % (0.0-11.0); NEUTROPHIL # 5.1 10^3/ul (1.6-7.5); NEUTROPHILS % 57.4 % (39.0-77.0); PLATELET COUNT 437 10^3/UL (140-415); RED BLOOD COUNT 3.69 10^6/ul (4.70-6.10); WHITE BLOOD COUNT 8.9 10^3/ul (4.8-10.8)
[2016-08-04 08:39] LABS: CALCIUM 8.8 mg/dl (8.4-10.2); CREATININE 0.8 mg/dl (0.61-1.24); POTASSIUM 4.2 mmol/L (3.5-5.1)
[2016-08-04] MEDS: CEFEPIME 1GM/50 ML (PMX) 50 ML IVPB SCH ×2 (09:07→21:04)
--- NOTE | 2016-08-04 11:34 | PN ---
Date/Time of Note Date/Time of Note DATE: 08/04/16 TIME: 11:31 Assessment/Plan VTE Prophylaxis VTE Prophylaxis Intervention: LMWH Lines/Catheters IV [facility] Urinary Cath still in place: No Assessment/Plan Chief Complaint/Hosp Course 1. Non-ST elevation myocardial infarction. Status post cardiac catheterization revealing 2-vessel coronary artery disease. S/P coronary artery bypass graft on 07/25/2016 (left internal mammary artery to left anterior descending and saphenous vein graft to the PDA). Continue postoperative care. 2. Type 2 diabetes mellitus, uncontrolled. Hemoglobin A1c 10.3. Continue sliding scale insulin along with basal insulin and Lantus insulin. Will adjust insulin dosing to obtain optimum pressure control. 5. Dyslipidemia. The patient has elevated total cholesterol and elevated triglycerides, along with suboptimal LDL and HDL. The patient will be continued on statins. 6. Essential hypertension. The patient will be maintained on antihypertensives. Blood pressure fairly well controlled. 7. Paroxysmal atrial fibrillation. Currently in sinus rhythm. On amiodarone. 8. Vitamin D deficiency. The patient on vitamin D supplements. 9. LLL pneumonia. Pulmonology following. The patient on antibiotics. 10. Fluid, electrolytes and nutrition. Carbohydrate controlled, low cholesterol diet. 11. Deep venous thrombosis prophylaxis. SQ Lovenox. 12. Gastrointestinal prophylaxis. Histamine 2 receptor blockers. 13. Plan. Continue postop care. Continue pain control. Continue antibiotics. The case was discussed with Dr. Yeboah. Problems: Subjective 24 Hr Interval Summary Free Text/Dictation Remains on supplemental O2. Exam/Review of Systems Vital Signs Vitals Vital Signs Date Time Temp Pulse Resp B/P Pulse Ox O2 Delivery O2 Flow Rate FiO2 08/04/16 08:29 75 08/04/16 07:34 98.4 19 119/75 97 08/04/16 07:30 Nasal Cannula 2.0 Intake and Output 08/03/16 08/03/16 08/04/16 15:00 23:00 07:00 Intake Total 300 ml 100 ml Balance 300 ml 100 ml Exam GENERAL: This is an obese male lying in bed in no apparent distress. HEENT: Head normocephalic and atraumatic. Eyes: Anicteric sclerae. Conjunctivae clear. ENT: Nasal septum is midline. Oral mucosa is moist. NECK: Supple. No JVD noticed. RESPIRATORY: Bilaterally diminished breath sounds. Left sided rales at the base. CARDIAC: Regular rate and rhythm. No murmurs heard. Sternal wall dressing. ABDOMEN: Soft, nontender and nondistended. Bowel sounds positive in all 4 quadrants. GENITOURINARY: Deferred. EXTREMITIES: No cyanosis, no clubbing, no edema. Peripheral pulses palpable. Left leg vein harvest site healing well. NEUROLOGIC: The patient is awake, alert and oriented. Cranial nerves are grossly intact. Results Result Diagram: 08/04/16 0720 08/04/16 0720 Results 24 hrs Laboratory Tests Test 08/03/16 17:12 08/03/16 20:37 08/04/16 01:54 08/04/16 07:20 Bedside Glucose 171 213 122 White Blood Count 8.9 Red Blood Count 3.69 L Hemoglobin 11.2 L Hematocrit 33.9 L Mean Corpuscular Volume 91.9 Mean Corpuscular Hemoglobin 30.4 Mean Corpuscular Hemoglobin Concent 33.0 Red Cell Distribution Width 12.0 Platelet Count 437 H Mean Platelet Volume 8.8 Neutrophils % 57.4 Lymphocytes % 32.4 Monocytes % 7.7 Eosinophils % 1.2 Basophils % 0.6 Nucleated Red Blood Cells % 0.0 Neutrophils # 5.1 Lymphocytes # 2.9 Monocytes # 0.7 Eosinophils # 0.1 Basophils # 0.1 Nucleated Red Blood Cells # 0.0 Sodium Level 136 Potassium Level 4.2 Chloride Level 100 Carbon Dioxide Level 28 Anion Gap 12 Blood Urea Nitrogen 11 Creatinine 0.80 Glucose Level 132 Calcium Level 8.8 Magnesium Level 2.0 Test 08/04/16 07:37 Bedside Glucose 133 Medications Medications Current Medications Metoclopramide HCl (Reglan) 10 mg Q6H PRN IV NAUSEA AND/OR VOMITING; Start at 04:00 Nitroglycerin (Nitroglycerin (Sl Tab) 0.4 Mg) 1 tab Q5M PRN SL CHEST PAIN Last administered on 07/22/16 16:56; Admin Dose 1 TAB; Start 07/22/16 at 04:00 Acetaminophen (Tylenol Tab) 650 mg Q6H PRN PO PAIN LEVEL 1-3 OR FEVER Last administered on 07/26/16 16:03; Admin Dose 650 MG; Start 07/22/16 at 04:00 Aspirin (Halfprin) 81 mg DAILY PO Last administered on 08/04/16 08:13; Admin Dose 81 MG; Start 07/23/16 at 09:00 Hydralazine HCl (Apresoline) 10 mg Q6H PRN IV SBP>160; Start 07/22/16 at 10:00 Atorvastatin Calcium (Lipitor) 80 mg HS PO Last administered on 08/03/16 20:41 ; Admin Dose 80 MG; Start 07/22/16 at 21:00 Alprazolam (Xanax) 0.25 mg Q6H PRN PO ANXIETY Last administered on 08/03/16 20: 41; Admin Dose 0.25 MG; Start 07/22/16 at 11:30 Al Hydrox/Mg Hydrox/Simethicone (Mag-Al Plus) 30 ml Q4H PRN PO GASTROINTESTINAL UPSET; Start 07/22/16 at 11:30 Ondansetron HCl (Zofran Inj) 4 mg Q4H PRN IV NAUSEA AND/OR VOMITING; Start at 11:30 Morphine Sulfate (morphine) 2 mg Q1H PRN IV PAIN Last administered on 17:42; Admin Dose 2 MG; Start 07/25/16 at 16:00 Hydromorphone HCl (Dilaudid) 1 mg Q2 PRN IV PAIN Last administered on 07/31/16 07:43; Admin Dose 1 MG; Start 07/25/16 at 19:00 Diagnostic Test (Pha) (Accu-Chek) 1 ea 02 XX Last administered on 08/04/16 02: 00; Admin Dose 1 EA; Start 07/27/16 at 02:00 Miscellaneous Information 1 ea NOTE XX ; Start 07/26/16 at 12:00 Glucose (Glutose) 15 gm Q15M PRN PO DECREASED GLUCOSE; Start 07/26/16 at 12:00 Glucose (Glutose) 22.5 gm Q15M PRN PO DECREASED GLUCOSE; Start 07/26/16 at 12: 00 Dextrose (D50w Syringe) 25 ml Q15M PRN IV DECREASED GLUCOSE; Start 07/26/16 at 12:00 Dextrose (D50w Syringe) 50 ml Q15M PRN IV DECREASED GLUCOSE; Start 07/26/16 at 12:00 Glucagon (Glucagen) 1 mg Q15M PRN IM DECREASED GLUCOSE; Start 07/26/16 at 12:00 Glucose (Glutose) 15 gm Q15M PRN BUCCAL DECREASED GLUCOSE; Start 07/26/16 at 12 :00 Enoxaparin Sodium (Lovenox) 40 mg DAILY SC Last administered on 08/04/16 08:19 ; Admin Dose 40 MG; Start 07/28/16 at 09:00 Metoprolol Tartrate (Lopressor) 50 mg BID PO Last administered on 08/04/16 08: 14; Admin Dose 50 MG; Start 07/27/16 at 21:00 Insulin Glargine (Lantus) 36 unit DAILY@08 SC Last administered on 08/04/16 07: 55; Admin Dose 36 UNIT; Start 07/29/16 at 08:00 Lisinopril (Zestril) 2.5 mg DAILY PO Last administered on 08/04/16 08:15; Admin Dose 2.5 MG; Start 07/29/16 at 14:00 Famotidine (Pepcid) 20 mg BID PO Last administered on 08/04/16 08:13; Admin Dose 20 MG; Start 07/29/16 at 21:00 Senna (Senokot) 2 tab BID PO Last administered on 08/04/16 08:14; Admin Dose 2 TAB; Start 07/31/16 at 09:00 Magnesium Hydroxide (Milk Of Mag) 30 ml BID PRN PO CONSTIPATION Last administered on 08/03/16 11:10; Admin Dose 30 ML; Start 07/30/16 at 20:30 Acetaminophen/ Hydrocodone Bitart ([place] (10/325)) 1 tab Q4H PRN PO PAIN Last administered on 08/03/16 13:54; Admin Dose 1 TAB; Start 07/31/16 at 11:00 Acetaminophen/ Hydrocodone Bitart ([place] (10/325)) 2 tab Q4H PRN PO SEVERE PAIN Last administered on 08/04/16 02:01; Admin Dose 2 TAB; Start 07/31/16 at 11: 00 Potassium Chloride (Klor-Con 10) 10 meq DAILY PO Last administered on 08/04/16 08:13; Admin Dose 10 MEQ; Start 08/01/16 at 09:00 Amiodarone HCl (Cordarone) 200 mg DAILY PO Last administered on 08/04/16 08:13 ; Admin Dose 200 MG; Start 08/03/16 at 09:00 Furosemide 20 mg 20 mg DAILY PO Last administered on 08/04/16 08:15; Admin Dose 20 MG; Start 08/03/16 at 09:00 Cefepime HCl (Maxipime 1gm/50 ml (Pmx)) 50 ml @ 100 mls/hr Q12 IVPB Last administered on 08/04/16 09:07; Admin Dose 100 MLS/HR; Start 08/03/16 at 14:00 NADEGE SPENCER NP Aug 04, 2016 11:34
--- NOTE | 2016-08-04 17:59 | CONS ---
Date/Time of Note Date/Time of Note DATE: 08/04/16 TIME: 17:57 Assessment/Plan Assessment/Plan Additional Assessment/Plan Non-ST elevation [place] CAD status post CABG 07/25/2016 Preserved ejection fraction Acute decompensated diastolic congestive heart failure Diabetes Hypertension Dyslipidemia Paroxysmal atrial fibrillation, currently sinus rhythm -CT chest done yesterday with left lower lobe atelectasis versus pneumonia, on antibiotics and receiving chest PT. Patient remains in sinus rhythm, continue amiodarone, continue Lasix to 20mg daily maintenance dose as blood pressure permits. cont asa/statin/bb. Consultation Date/Type/Reason Admit Date/Time Jul 22, 2016 at 14:00 Type of Consultation: cv 24 HR Interval Summary Free Text/Dictation Shortness of breath continues to improve. Denies shortness of breath or chest pain with ambulation. Exam/Review of Systems Vital Signs Vitals Vital Signs Date Time Temp Pulse Resp B/P Pulse Ox O2 Delivery O2 Flow Rate FiO2 08/04/16 16:15 83 08/04/16 15:23 98.3 19 122/74 94 08/04/16 14:59 2.0 08/04/16 07:30 Nasal Cannula Intake and Output 08/03/16 08/03/16 08/04/16 14:59 22:59 06:59 Intake Total 300 ml 100 ml Balance 300 ml 100 ml Exam No apparent distress Constitutional: alert, oriented Head: normocephalic Neck: supple Respiratory: other (Coarse breath sounds bilaterally, no wheezing) Cardiovascular: other (S1-S2 heard), regular rate and rhythm Gastrointestinal: bowel sounds, non-tender, other (No guarding), soft Extremities: edema (Trace) Results Result Diagram: 08/04/16 0720 08/04/16 0720 Results 24 hrs Laboratory Tests Test 08/03/16 20:37 08/04/16 01:54 08/04/16 07:20 08/04/16 07:37 Bedside Glucose 213 122 133 White Blood Count 8.9 Red Blood Count 3.69 L Hemoglobin 11.2 L Hematocrit 33.9 L Mean Corpuscular Volume 91.9 Mean Corpuscular Hemoglobin 30.4 Mean Corpuscular Hemoglobin Concent 33.0 Red Cell Distribution Width 12.0 Platelet Count 437 H Mean Platelet Volume 8.8 Neutrophils % 57.4 Lymphocytes % 32.4 Monocytes % 7.7 Eosinophils % 1.2 Basophils % 0.6 Nucleated Red Blood Cells % 0.0 Neutrophils # 5.1 Lymphocytes # 2.9 Monocytes # 0.7 Eosinophils # 0.1 Basophils # 0.1 Nucleated Red Blood Cells # 0.0 Sodium Level 136 Potassium Level 4.2 Chloride Level 100 Carbon Dioxide Level 28 Anion Gap 12 Blood Urea Nitrogen 11 Creatinine 0.80 Glucose Level 132 Calcium Level 8.8 Magnesium Level 2.0 Test 08/04/16 11:29 08/04/16 17:06 Bedside Glucose 245 H 104 Medications Medications Current Medications Metoclopramide HCl (Reglan) 10 mg Q6H PRN IV NAUSEA AND/OR VOMITING; Start at 04:00 Nitroglycerin (Nitroglycerin (Sl Tab) 0.4 Mg) 1 tab Q5M PRN SL CHEST PAIN Last administered on 07/22/16 16:56; Admin Dose 1 TAB; Start 07/22/16 at 04:00 Acetaminophen (Tylenol Tab) 650 mg Q6H PRN PO PAIN LEVEL 1-3 OR FEVER Last administered on 07/26/16 16:03; Admin Dose 650 MG; Start 07/22/16 at 04:00 Aspirin (Halfprin) 81 mg DAILY PO Last administered on 08/04/16 08:13; Admin Dose 81 MG; Start 07/23/16 at 09:00 Hydralazine HCl (Apresoline) 10 mg Q6H PRN IV SBP>160; Start 07/22/16 at 10:00 Atorvastatin Calcium (Lipitor) 80 mg HS PO Last administered on 08/03/16 20:41 ; Admin Dose 80 MG; Start 07/22/16 at 21:00 Alprazolam (Xanax) 0.25 mg Q6H PRN PO ANXIETY Last administered on 08/03/16 20: 41; Admin Dose 0.25 MG; Start 07/22/16 at 11:30 Al Hydrox/Mg Hydrox/Simethicone (Mag-Al Plus) 30 ml Q4H PRN PO GASTROINTESTINAL UPSET; Start 07/22/16 at 11:30 Ondansetron HCl (Zofran Inj) 4 mg Q4H PRN IV NAUSEA AND/OR VOMITING; Start at 11:30 Morphine Sulfate (morphine) 2 mg Q1H PRN IV PAIN Last administered on 17:42; Admin Dose 2 MG; Start 07/25/16 at 16:00 Hydromorphone HCl (Dilaudid) 1 mg Q2 PRN IV PAIN Last administered on 07/31/16 07:43; Admin Dose 1 MG; Start 07/25/16 at 19:00 Diagnostic Test (Pha) (Accu-Chek) 1 ea 02 XX Last administered on 08/04/16 02: 00; Admin Dose 1 EA; Start 07/27/16 at 02:00 Miscellaneous Information 1 ea NOTE XX ; Start 07/26/16 at 12:00 Glucose (Glutose) 15 gm Q15M PRN PO DECREASED GLUCOSE; Start 07/26/16 at 12:00 Glucose (Glutose) 22.5 gm Q15M PRN PO DECREASED GLUCOSE; Start 07/26/16 at 12: 00 Dextrose (D50w Syringe) 25 ml Q15M PRN IV DECREASED GLUCOSE; Start 07/26/16 at 12:00 Dextrose (D50w Syringe) 50 ml Q15M PRN IV DECREASED GLUCOSE; Start 07/26/16 at 12:00 Glucagon (Glucagen) 1 mg Q15M PRN IM DECREASED GLUCOSE; Start 07/26/16 at 12:00 Glucose (Glutose) 15 gm Q15M PRN BUCCAL DECREASED GLUCOSE; Start 07/26/16 at 12 :00 Enoxaparin Sodium (Lovenox) 40 mg DAILY SC Last administered on 08/04/16 08:19 ; Admin Dose 40 MG; Start 07/28/16 at 09:00 Metoprolol Tartrate (Lopressor) 50 mg BID PO Last administered on 08/04/16 08: 14; Admin Dose 50 MG; Start 07/27/16 at 21:00 Insulin Glargine (Lantus) 36 unit DAILY@08 SC Last administered on 08/04/16 07: 55; Admin Dose 36 UNIT; Start 07/29/16 at 08:00 Lisinopril (Zestril) 2.5 mg DAILY PO Last administered on 08/04/16 08:15; Admin Dose 2.5 MG; Start 07/29/16 at 14:00 Famotidine (Pepcid) 20 mg BID PO Last administered on 08/04/16 08:13; Admin Dose 20 MG; Start 07/29/16 at 21:00 Senna (Senokot) 2 tab BID PO Last administered on 08/04/16 08:14; Admin Dose 2 TAB; Start 07/31/16 at 09:00 Magnesium Hydroxide (Milk Of Mag) 30 ml BID PRN PO CONSTIPATION Last administered on 08/03/16 11:10; Admin Dose 30 ML; Start 07/30/16 at 20:30 Acetaminophen/ Hydrocodone Bitart ([place] (10/325)) 1 tab Q4H PRN PO PAIN Last administered on 08/04/16 11:30; Admin Dose 1 TAB; Start 07/31/16 at 11:00 Acetaminophen/ Hydrocodone Bitart ([place] (10/325)) 2 tab Q4H PRN PO SEVERE PAIN Last administered on 08/04/16 02:01; Admin Dose 2 TAB; Start 07/31/16 at 11: 00 Potassium Chloride (Klor-Con 10) 10 meq DAILY PO Last administered on 08/04/16 08:13; Admin Dose 10 MEQ; Start 08/01/16 at 09:00 Amiodarone HCl (Cordarone) 200 mg DAILY PO Last administered on 08/04/16 08:13 ; Admin Dose 200 MG; Start 08/03/16 at 09:00 Furosemide 20 mg 20 mg DAILY PO Last administered on 08/04/16 08:15; Admin Dose 20 MG; Start 08/03/16 at 09:00 Cefepime HCl (Maxipime 1gm/50 ml (Pmx)) 50 ml @ 100 mls/hr Q12 IVPB Last administered on 08/04/16 09:07; Admin Dose 100 MLS/HR; Start 08/03/16 at 14:00 Tucker Fuller DO Aug 04, 2016 17:59
[2016-08-04] MEDS: ATORVASTATIN 80 MG TAB PO SCH (21:05)
[2016-08-04] MEDS: ALPRAZOLAM 0.25 MG TAB PO PRN (21:05)
[2016-08-05 00:57] VITALS: PULSE 64
[2016-08-05] MEDS: ACCU-CHEK XX SCH (01:33)
[2016-08-05 04:08] VITALS: BP 127/84
[2016-08-05 04:42] VITALS: PULSE 70
[2016-08-05 07:22] VITALS: BP 123/67; RESP 19
[2016-08-05] MEDS: INSULIN ASPART [NOVOLOG] 3 ML PEN SC SCH ×4 (07:55→11:50)
[2016-08-05] MEDS: MAGNESIUM HYDROXIDE 30ML CUP PO PRN (08:06)
[2016-08-05] MEDS: POTASSIUM CHLORIDE (SR) 10 MEQ TAB PO SCH (08:07)
[2016-08-05] MEDS: FAMOTIDINE 20 MG TAB PO SCH (08:07)
[2016-08-05] MEDS: SENNA TAB PO SCH (08:07)
[2016-08-05] MEDS: ASPIRIN (EC) 81 MG TAB PO SCH (08:07)
[2016-08-05] MEDS: FUROSEMIDE 20 MG TAB PO SCH (08:08)
[2016-08-05] MEDS: LISINOPRIL 5 MG TAB PO SCH (08:09)
[2016-08-05] MEDS: METOPROLOL 50 MG TAB PO SCH (08:09)
[2016-08-05] MEDS: AMIODARONE 200 MG TAB PO SCH (08:09)
[2016-08-05] MEDS: INSULIN GLARGINE [LANtus] 3 ML PEN SC SCH (08:14)
[2016-08-05] MEDS: ENOXAPARIN 40 MG/0.4 ML SYG SC SCH (08:15)
[2016-08-05] MEDS: CEFEPIME 1GM/50 ML (PMX) 50 ML IVPB SCH (08:19)
[2016-08-05 08:20] VITALS: PULSE 69
--- NOTE | 2016-08-05 09:50 | PDOCDIS ---
Discharge Instructions DIAGNOSIS Discharge Diagnosis: CAD. Status post CABG. CONDITION Patient Condition: Stable HOME CARE INSTRUCTIONS: Diet Instructions: Low Fat /CholesterolSpecial Diet: 1800 jose cruz ADA ACTIVITY: Activity Restrictions: Slowly Increase Activity Rest between Activity Avoid heavy lifting No Sexual Activity Do not Drive Do not operate Machinery Avoid Heavy Housework FOLLOW UP/APPOINTMENTS Appointments 1. Jefferson Chaney MD Specialty: Cardiothoracic Surgery Office Address: [address] [place] [address]. [address] [place] [address] Office 2. Tucker Fuller DO Specialty: Cardiovascular Disease Office Address: [facility] [id number] [place] [id number] Office 3. David Hutchison MD Specialty: Internal Medicine Office Address: [address] [facility] [address] [place] [address] Office OTHER ORDERS: Other Orders: 1. Take a low-cholesterol, carbohydrate controlled diet. 2. Take medications as per prescription. 3. Activities as tolerated. 4. Check blood sugars 3 times a day. Take insulin as per prescription. 5. Follow-up with cardiac surgeon [Dr. Chaney] in 2 weeks. Please call for appointment. 6. Follow-up with cardiology [Dr. Fuller] in 2 weeks. Please call for appointment. If you are unable to get an appointment with cardiology, please arrange with your primary care physician for outpatient cardiology follow-up. 7. Please follow-up with your primary care physician 1 week. If you do not have a primary care physician, please call Dr. David Hutchison's Office. 8. Keep the incisions clean and dry. Avoid heavy lifting until cleared by cardiac surgeon. Avoid driving until cleared by cardiac surgeon NADEGE SPENCER NP Aug 05, 2016 09:50
[2016-08-05] MEDS ORDERED: METO-429 PO (09:54)
[2016-08-05] MEDS ORDERED: METF500T4 PO (09:54)
[2016-08-05] MEDS ORDERED: LISI-313 PO (09:54)
[2016-08-05] MEDS ORDERED: LAS20 PO (09:54)
[2016-08-05] MEDS ORDERED: POTA10TA15 PO (09:54)
[2016-08-05] MEDS ORDERED: Hydrocodone/Apap (10/325) PO (09:54)
[2016-08-05] MEDS ORDERED: LANT3I SC (09:54)
[2016-08-05] MEDS ORDERED: LEVO750T25 PO (09:54)
[2016-08-05] MEDS ORDERED: NOVO3I SC (09:54)
[2016-08-05] MEDS ORDERED: AMIO200T2 PO (09:54)
[2016-08-05] MEDS ORDERED: ATOR80TA75 PO (09:54)
[2016-08-05] MEDS ORDERED: ASPI-664 PO (09:54)
[2016-08-05] MEDS ORDERED: SENN-53 PO (09:54)
[2016-08-05] MEDS ORDERED: ALBU8.5H3 INH (09:56)
[2016-08-05 12:02] VITALS: BP 124/69; PULSE 69; RESP 19
--- NOTE | 2016-08-05 13:01 | DS ---
DATE OF ADMISSION: 07/22/2016 DATE OF DISCHARGE: 08/05/2016 FINAL DIAGNOSES: 1. Non-ST elevation myocardial infarction. 2. Two-vessel coronary artery disease. Status post coronary artery bypass graft. 3. Type 2 diabetes mellitus, uncontrolled. 4. Dyslipidemia. 5. Essential hypertension. 6. Paroxysmal atrial fibrillation. 7. Vitamin D deficiency. 8. Left lower lobe pneumonia. 9. Obesity. CONSULTATIONS: 1. Dr. Tucker Fuller, cardiology. 2. Dr. Jefferson Chaney, cardiothoracic surgery. 3. Dr. Alex Bansal, cardiology. 4. Dr. Sanjeev Stephen, pulmonology. HOSPITAL COURSE: This is a 51-year-old male who came to the emergency room with chief complaint of intermittent chest pain with no aggravating or relieving factors. The patient has a history of essential hypertension and diabetes. However, he does not take any medications for the same. The patient was noticed to have a high blood pressure of 205/122 in the emergency room. Patient was noticed to have uncontrolled blood sugars in the emergency room. The patient's initial set of troponins were negative. Provided the patient's history of present illness and his comorbidities, a clinical decision was made to admit the patient to inpatient setting to have him further evaluated. The patient was admitted to inpatient telemetry floor. Serial troponins were ordered. A cardiology consult was obtained. A 2D echocardiogram was obtained. Cardiology took the patient to research laboratory technician on 07/22/2016. The patient underwent a left heart catheterization that showed obstructive coronary artery disease with the RCA showing 100% occlusion and LAD showing 80 to 90% eccentric stenosis in one of its proximal branches. Hence, cardiology recommended that the patient to be evaluated by cardiothoracic surgery. The patient was started on antiplatelet therapy and therapeutic anticoagulation. Meanwhile, the patient 's 2D echocardiogram showed ejection fraction of 55% with stage I diastolic dysfunction. The patient was seen and evaluated by cardiothoracic surgery and the patient was taken to the OR on 07/25/2016. The patient underwent a coronary artery bypass grafting with left internal mammary artery to the left anterior descending artery and saphenous vein graft to the PDA. Postoperatively, the patient was transferred to intensive care unit. The patient was gradually weaned off the ventilator and the patient was later transferred out of the intensive care unit once stable. Postoperatively, the patient had an episode of paroxysmal atrial fibrillation and the patient had to be started on amiodarone. However, the patient was later converted to sinus rhythm. The patient was continued on oral amiodarone. The patient has underlying essential hypertension. His antihypertensives were adjusted to obtain optimal blood pressure control. The patient had dyslipidemia with elevated total cholesterol and elevated triglycerides, along with suboptimal LDL and HDL. The patient also had evidence of CAD. The patient was started on high dose statins. The patient had very uncontrolled blood sugars. The patient's insulin dosing was adjusted multiple times to obtain optimal blood sugar control. The patient's hemoglobin A1c was found to be 10.3, indicating poor blood glucose control. The patient was seen and evaluated by nurse educator and was instructed on diabetic diet, blood sugar checks, and insulin injections. The patient was also noticed to have vitamin D deficiency. The patient was started on vitamin D supplements. Postoperatively, after chest tube removal, the patient continued to have episodes of hypoxia with minimal exertion. The patient was maintained on inhaled bronchodilators. The patient was being followed by pulmonology. The patient underwent a chest CT scan on 08/03/2016 that showed airspace disease throughout most of the left lower lobe consistent with atelectasis or pneumonia. Consequently, the patient was started on chest physical therapy with improvement in the patient's hypoxia and dyspnea. The patient was also started on antibiotics for underlying healthcare-associated pneumonia. Meanwhile, the patient was also being seen and evaluated by physical therapy. The patient was later discharged from physical therapy services since, the patient does not need any skilled physical therapy. The patient had a slightly longer hospital course because of the hypoxia and pneumonia that the patient had status post cardiac surgery. Nevertheless, the patient is stable to be discharged home. The patient was cleared by consultants to be discharged home. DISCHARGE PLAN: The patient will be discharged home. The patient was instructed to take a low-cholesterol, carbohydrate controlled diet. He was instructed to take medications as per prescription. The patient was instructed to resume activities as tolerated. However, he was instructed to rest between activity and slowly increase activity. The patient was instructed to avoid driving, avoid heavy housework, and avoid sexual activity until instructed by the cardiac surgeon. He was instructed to keep the sternal incisions clean and dry. The patient was instructed to check his blood sugars 3 times a day and to take insulin as per prescription. The patient was instructed to follow up with cardiology in 2 weeks. He was instructed to follow up with his cardiac surgeon in 2 weeks. He was also instructed to follow up with his primary care physician within 1 week and if he does not have a primary care physician, to please call Dr. David Hutchison's office. The patient was informed that if he is unable to obtain cardiology followup, he was instructed to follow up with his primary care physician to arrange for outpatient cardiology followup. The patient verbalized understanding of his discharge instructions. CONDITION AT DISCHARGE: Stable. DISCHARGE MEDICATIONS: 1. ProAir HFA 2 puffs inhaled q.4. hours p.r.n. dyspnea. 2. Amiodarone 200 mg p.o. daily. 3. Aspirin 81 mg p.o. daily. 4. Atorvastatin 80 mg p.o. at bedtime. 5. Lasix 20 mg p.o. daily. 6. NovoLog insulin 12 units subcutaneously with meals. 7. Lantus insulin 36 units subcutaneously daily. 8. Levaquin 750 mg p.o. daily for 7 days. 9. Lisinopril 2.5 mg p.o. daily. 10. Metformin 500 mg p.o. with breakfast and dinner. 11. Lopressor 50 mg p.o. b.i.d. 12. Potassium chloride 10 mEq p.o. daily. 13. Senna Lax 8.6 mg 2 tablets p.o. b.i.d. 14. [place] 5/325 one tablet p.o. q.4h. p.r.n. pain (#30 tablets). PERTINENT LABORATORY, DIAGNOSTIC DATA AND PROCEDURES: 1. Left heart catheterization. Obstructive coronary artery disease with proximal 100% occlusion of the right coronary artery with LAD showing high diagonal 80 to 90% eccentric stenosis. 2. Coronary artery bypass grafting with GARRETT to LAD and saphenous vein graft to posterior descending artery. 3. Chest CT scan on 08/03/2016. Air space disease throughout most of the left lower lobe consistent with atelectasis or pneumonia. Mild scarring or atelectasis in both lung apices. Mild cardiomegaly. Small left pleural effusion. 4. Carotid Doppler study on 07/23/2016. No evidence for hemodynamically significant stenosis in bilateral internal carotid arteries. Normal antegrade flow in the vertebral arteries bilaterally. 5. Hemoglobin A1c 10.3. 6. Fasting lipid panel: Triglycerides 379, total cholesterol 204, LDL 95, HDL 33. 7. Vitamin D level is 13.2. 8. Blood cultures x2 were negative. 9. Urine culture negative. At this time, I would like to thank all the consultants for seeing the patient, doing the necessary procedures, and providing clinical recommendations. The case and management of this patient was fully discussed with Dr. Tello. Approximately 40 minutes was spent on coordinating the discharge on this patient. NADEGE TELLO MD, AM/YUDY Conf#: [id number] DID#: [id number] MTDD
== END 2016-08-05 12:22 | disposition home or self-care (01) | DRG 233 ==
LOC: E/R 00:18 → CCL 10:40 → SDS 10:40 → CCL 14:00 → MS4 14:00 → ICU 07-25 10:31 → TEL 07-27 16:22
PROVIDERS: ADMIT Family Medicine; ATTEND Family Medicine
PROC: 4A023N7 Measurement of Cardiac Sampling and Pressure, Left Heart, Percutaneous Approach (ICD-10-PCS; 2016-07-22 10:30)
PROC: 02100Z9 Bypass Coronary Artery, One Artery from Left Internal Mammary, Open Approach (ICD-10-PCS; 2016-07-25)
PROC: 06BQ4ZZ Excision of Left Saphenous Vein, Percutaneous Endoscopic Approach (ICD-10-PCS; 2016-07-25)
PROC: B211YZZ Fluoroscopy of Multiple Coronary Arteries using Other Contrast (ICD-10-PCS; 2016-07-25)
PROC: 5A1221Z Performance of Cardiac Output, Continuous (ICD-10-PCS; 2016-07-25)
PROC: 021009W Bypass Coronary Artery, One Artery from Aorta with Autologous Venous Tissue, Open Approach (ICD-10-PCS; principal; 2016-07-25 07:30)
DX: I21.4 Non-ST elevation (NSTEMI) myocardial infarction (principal); I50.33 Acute on chronic diastolic (congestive) heart failure; J18.9 Pneumonia, unspecified organism; I11.0 Hypertensive heart disease with heart failure; I48.0 Paroxysmal atrial fibrillation; E66.9 Obesity, unspecified; E11.65 Type 2 diabetes mellitus with hyperglycemia; E78.5 Hyperlipidemia, unspecified; I25.10 Atherosclerotic heart disease of native coronary artery without angina pectoris; E55.9 Vitamin D deficiency, unspecified; R09.02 Hypoxemia; Y95 Nosocomial condition; Z79.4 Long term (current) use of insulin; Z68.39 Body mass index [BMI] 39.0-39.9, adult
CPT/HCPCS: 36415; 36592; 36600; 71010; 71020; 71250; 80048; 80053; 80061; 80307; 82550; 82553; 82652; 82803; 82962; 83036; 83690; 83735; 84100; 84132; 84443; 84484; 85014; 85025; 85610; 85730; 86850; 86900; 86901; 86920; 87040; 87081; 87086; 90686; 93005; 93306; 93312; 93325; 93458; 93880; 94002; 94667; 94668; 94770; 96372; 96374; 97116; 97163; 97530; J1940; C1769; C1887; J0171; J0360; J0690; J0692; J1170; J1644; J1650; J1815; J2001; J2150; J2250; J2270; J2370; J2440; J2720; J3010; J3370; J3475; J3480; J7030; J7040; J7070; P9047

== ENCOUNTER 2016-08-09 11:22 | Outpatient (CLI) | payer MEDICAID ==
[~2016-08-09] VITALS: Ht 167.6 cm; Wt 106.9 kg
[~2016-08-09 11:22] MED LIST: ALBU8.5H3 INH; AMIO200T2 PO; ASPI-664 PO; ATOR80TA75 PO; Hydrocodone/Apap (10/325) PO; LANT3I SC; LAS20 PO; LEVO750T25 PO; LISI-313 PO; METF500T4 PO; METO-429 PO; NOVO3I SC; POTA10TA15 PO; SENN-53 PO
[2016-08-09 11:52] VITALS: Ht 167.6 cm; Wt 106.9 kg
[2016-08-09 11:54] VITALS: BP 112/73; PULSE 73; RESP 16
--- NOTE | 2016-08-09 15:14 | PN ---
Date/Time of Note Date/Time of Note DATE: 08/09/16 TIME: 15:09 Outpatient Progress Note Chief Complaint ASHD/diabetes/hypertension/hyperlipidemia/vitamin D deficiency HPI ASHD/patient was recently admitted with acute [place], patient had angiogram, patient had coronary artery bypass, patient also had a paroxysmal atrial fibrillation, at present controlled, Diabetes/no pleuritic supple due to hypoglycemia, gastroparesis, and abdominal distention, and impaired vision, Hypertension/no headache or dizziness or lightheadedness, no chest pain or pressure, no ankle edema, Hyperlipidemia/no xanthoma, on medication, no side effect of medication, Vitamin D deficiency/patient has vitamin D deficiency, Review of Systems Const: No Fever, no chills, no Wt. loss, no Fatigue, normal appetite, no diaphoresis. Eyes: No pain, no discharge, no redness, no visual change, no foreign body. ENT: No pain, no bleeding, no congestion, no sore throat, no dysphagia, no discharge or rhinitis. Lymph: No adenopathy, no tender nodes, no lymphedema. Resp: No SOB, no cough, no sputum, no wheezing, no chest pain. CV: No chest pain, no palpitaions, no JARQUIN, no PND, no edema. GI: Normal appetite, no pain, no nausea, no vomiting, no diarrhea, no blood, no constipation. : No frequency, no urgency, no dysuria, no hematuria, no flank pain, no discharge, no bleeding. Musc: No bone/joint pain, no back pain, no neck pain, no knee pain, no restricted ROM. Skin: No rash, no skin lesions, no erythema, no laceration, no bruising, no pruritus scar of previous open heart surgery,. Neuro: No LYNN, no dizziness, no syncope, no seizure, no focal-weakness. Endo: No polyuria, no polydypsia, no dry-skin, no temp-intolerance. Psych: No hallucinations, no depression, no anxiety, no suicidal ideation. Ext: No edema, no pain, no ulcer, no weakness. Physical Exam Vital Signs Date Time Temp Pulse Resp B/P Pulse Ox O2 Delivery O2 Flow Rate FiO2 08/09/16 11:54 97.5 73 16 112/73 95 Room Air General Appearance: A 51 year-old male who appears well-developed, well- nourished, in no acute distress. HEENT: Head normocephalic, atraumatic. Pupils equal, round, reactive to light and accommodate. Sclerae are no jaundice. Nasal turbinates pink without erythema or nasal discharge. Mucous membranes pink and moist without lesions. Oropharynx clear without any exudate or discharge. NECK: Supple. Trachea midline, No thyromegaly, No cervical lymphadenopathy, No mass, No carotid bruits, No JVD, Carotid pulses 2+ bilaterally. PULMONARY: Clear to auscultaion bilaterally, No retractions, Chest expansion symmetric bilaterally, no rales, no ronchi, no dulness on percussion. CARDIAC: Normal SI and S2, Regular rate and rythm, no murmur, gallop, or rub. GASTROINTESTINAL: Abdomen is soft, non-tender, Non Rigid, No distention, Positive bowel sounds x4 quadrants, Liver normal. SKIN: Warm, dry, no rash, no bruise, no echmosis scar of open heart surgery, no bleeding, no redness, no discharge, EXTREMITIES: Bilateral lower extremities normal, no edema, no phlabitus, pulse palpable, no contracture. MUSCULOSKELETAL: Spine Normal, Non-tender, Normal range of motion, No swelling, no deformity, no clubbing, or cyanosis, the patient has no edema to bilateral lower extremities, dorsalis pedis pulses palpable bilaterally. NEUROLOGIC: The patient is awake, alert, oriented, responding to yes/no questions appropriately, moving all extremities, cranial nerve intact, normal strenght, normal power, normal coordination, normal gait. Allergies Coded Allergies: No Known Allergy (Unverified , 07/27/16) PMH Recent coronary artery bypass surgery, ASHD/[place]/diabetes/hyperlipidemia/ hypertension/paroxysmal atrial fibrillation/vitamin D deficiency/pneumonia/ obesity Social Hx No smoking, occasionally drinking, no drugs, Family Hx Noncontributory Assessment/Plan Impression ASHD/[place]/diabetes/hypertension/hyperlipidemia/vitamin D deficiency History of paroxysmal atrial fibrillation, Plan Patient doing very well, no postop complication, patient breathing comfortably, no chest pain, patient does not have any cellulitis, the wound looks clean, Wound dressing done, Patient does not have vitamin D, Vitamin D 50,000 units q. weekly 4 and then once a week 4 Patient to follow with the cardiac surgeon, Patient to follow with the primary care physician, Patient has enough supply, Medications Home Meds Active Scripts Albuterol Sulfate* (Proair HFA*) 8.5 Gm Hfa.aer.ad, 2 PUFF INH Q4H Y for SHORTNESS OF BREATH, #1 INHALER Prov:NADEGE SPENCER NP 08/05/16 Metformin* (Glucophage*) 500 Mg Tab, 500 MG PO WITH BREAKFAST DINNE, #60 TAB Prov:NADEGE SPENCER NP 08/05/16 Levofloxacin* (Levaquin*) 750 Mg Tablet, 750 MG PO DAILY for 7 Days, TAB Prov:NADEGE SPENCER NP 08/05/16 Insulin Glargine* (Lantus*) 100 Unit/Ml Soln, 36 UNIT SC DAILY@08 for 30 Days Prov:NADEGE SPENCER NP 08/05/16 Insulin Aspart* (Novolog Insulin Pen*) 100 Unit/Ml Soln, 12 UNIT SC WITH MEALS for 30 Days Prov:NADEGE SPENCER NP 08/05/16 Sennosides* (Senna Lax*) 8.6 Mg Tablet, 2 TAB PO BID for 30 Days, TAB Prov:NADEGE SPENCER NP 08/05/16 Potassium Chloride (Klor-Con M10) 10 Meq Tab.prt.sr, 10 MEQ PO DAILY for 30 Days Prov:NADEGE SPENCER NP 08/05/16 Furosemide (Lasix) 20 Mg Tab, 20 MG PO DAILY for 30 Days, TAB Prov:NADEGE SPENCER NP 08/05/16 [Hydrocodone/Apap (10/325)] 1 TAB TAB No Conflict Check, 1 TAB PO Q4H Y for PAIN , #30 Prov:NADEGE SPENCER NP 08/05/16 Aspirin* (Aspirin* EC) 81 Mg Tablet.dr, 81 MG PO DAILY for 30 Days Prov:NADEGE SPENCER NP 08/05/16 Metoprolol Tartrate* (Lopressor*) 50 Mg Tab, 50 MG PO BID for 30 Days, TAB Prov:NADEGE SPENCER NP 08/05/16 Lisinopril* (Lisinopril*) 5 Mg Tablet, 2.5 MG PO DAILY for 30 Days, TAB Prov:NADEGE SPENCER NP 08/05/16 Atorvastatin* (Atorvastatin*) 80 Mg Tablet, 80 MG PO HS for 30 Days, TAB Prov:NADEGE SPENCER NP 08/05/16 Amiodarone Hcl* (Amiodarone Hcl*) 200 Mg Tablet, 200 MG PO DAILY for 30 Days, TAB Prov:NADEGE SPENCER NP 08/05/16 NATALEE STOREY MD Aug 09, 2016 15:14
== END 2016-08-09 16:56 | disposition home or self-care (01) ==
LOC: DCC 11:22
PROVIDERS: ATTEND Internal Medicine
DX: I25.10 Atherosclerotic heart disease of native coronary artery without angina pectoris (principal); E11.9 Type 2 diabetes mellitus without complications; I10 Essential (primary) hypertension; E78.5 Hyperlipidemia, unspecified; I48.0 Paroxysmal atrial fibrillation; E55.9 Vitamin D deficiency, unspecified
CPT/HCPCS: G0463

== ENCOUNTER 2016-08-23 11:16 | Outpatient (CLI) | payer MEDICAID ==
[~2016-08-23] VITALS: Ht 167.6 cm; Wt 106.8 kg
[2016-08-23 11:22] VITALS: BP 117/76; PULSE 79; RESP 16; Ht 167.6 cm; Wt 106.8 kg
--- NOTE | 2016-08-23 11:41 | PN ---
Date/Time of Note Date/Time of Note DATE: 08/23/16 TIME: 11:37 Outpatient Progress Note Chief Complaint ASHD/diabetes/hypertension/hyperlipidemia HPI ASHD/no chest pain, no PND, patient had coronary artery bypass, patient doing well, on multiple medication, Diabetes/no polydipsia. Hypoglycemia, no gastroparesis, no impaired vision, Hypertension/no headache or dizziness or lightheadedness, no ankle edema, no wheezing, no impaired vision, Hyperlipidemia/no xanthoma, on medication, side effect of medication, Review of Systems Const: [No Fever, no chills, no Wt. loss, no Fatigue, normal appetite, no diaphoresis.] Eyes: [No pain, no discharge, no redness, no visual change, no foreign body.] ENT: [No pain, no bleeding, no congestion, no sore throat, no dysphagia, no discharge or rhinitis.] Lymph: [No adenopathy, no tender nodes, no lymphedema.] Resp: [No SOB, no cough, no sputum, no wheezing, no chest pain.] CV: [No chest pain, no palpitaions, no JARQUIN, no PND, no edema.] GI: [Normal appetite, no pain, no nausea, no vomiting, no diarrhea, no blood, no constipation.] : [No frequency, no urgency, no dysuria, no hematuria, no flank pain, no discharge, no bleeding.] Musc: [No bone/joint pain, no back pain, no neck pain, no knee pain, no restricted ROM.] Skin: [No rash, no skin lesions, no erythema, no laceration, no bruising, no pruritus.] Neuro: [No LYNN, no dizziness, no syncope, no seizure, no focal-weakness.] Endo: [No polyuria, no polydypsia, no dry-skin, no temp-intolerance.] Psych: [No hallucinations, no depression, no anxiety, no suicidal ideation.] Ext: [No edema, no pain, no ulcer, no weakness.] Physical Exam Vital Signs Date Time Temp Pulse Resp B/P Pulse Ox O2 Delivery O2 Flow Rate FiO2 08/23/16 11:22 98.2 79 16 117/76 95 Room Air General Appearance: A [51 year-old male [who appears well-developed, well- nourished, in no acute distress.] HEENT: [Head normocephalic, atraumatic. Pupils equal, round, reactive to light and accommodate. Sclerae are no jaundice. Nasal turbinates pink without erythema or nasal discharge. Mucous membranes pink and moist without lesions. Oropharynx clear without any exudate or discharge.] NECK: [Supple. Trachea midline, No thyromegaly, No cervical lymphadenopathy, No mass, No carotid bruits, No JVD, Carotid pulses 2+ bilaterally.] PULMONARY: [Clear to auscultaion bilaterally, No retractions, Chest expansion symmetric bilaterally, no rales, no ronchi, no dulness on percussion.] CARDIAC: [Normal SI and S2, Regular rate and rythm, no murmur, gallop, or rub.] GASTROINTESTINAL: [Abdomen is soft, non-tender, Non Rigid, No distention, Positive bowel sounds x4 quadrants, Liver normal.] SKIN: [Warm, dry, no rash, no bruise, no echmosis.] EXTREMITIES: [Bilateral lower extremities normal, no edema, no phlabitus, pulse palpable, no contracture.] MUSCULOSKELETAL: [Spine Normal, Non-tender, Normal range of motion, No swelling , no deformity, no clubbing, or cyanosis, the patient has no edema to bilateral lower extremities, dorsalis pedis pulses palpable bilaterally.] NEUROLOGIC: [The patient is awake, alert, oriented, responding to yes/no questions appropriately, moving all extremities, cranial nerve intact, normal strenght, normal power, normal coordination, normal gait.] Allergies Coded Allergies: No Known Allergy (Unverified , 07/27/16) PMH No change Social Hx No change Family Hx No change Assessment/Plan Impression ASHD/status post coronary artery bypass/diabetes/hypertension/hyperlipidemia plan Continue all medication, increase activity slowly, Follow with the primary care physician, Patient will need CBC CMP in the globin A1c etc., patient to follow with the primary care physician for lab work, Patient need to refill off all medication, we'll refill all medication for another month, Medications Home Meds Active Scripts Albuterol Sulfate* (Proair HFA*) 8.5 Gm Hfa.aer.ad, 2 PUFF INH Q4H Y for SHORTNESS OF BREATH, #1 INHALER Prov:NADEGE SPENCER [employer] SPECIALIST 08/05/16 Metformin* (Glucophage*) 500 Mg Tab, 500 MG PO WITH BREAKFAST DINNE, #60 TAB Prov:NADEGE SPENCER NP 08/05/16 Insulin Glargine* (Lantus*) 100 Unit/Ml Soln, 36 UNIT SC DAILY@08 for 30 Days Prov:NADEGE SPENCER NP 08/05/16 Insulin Aspart* (Novolog Insulin Pen*) 100 Unit/Ml Soln, 12 UNIT SC WITH MEALS for 30 Days Prov:NADEGE SPENCER NP 08/05/16 Sennosides* (Senna Lax*) 8.6 Mg Tablet, 2 TAB PO BID for 30 Days, TAB Prov:NADEGE SPENCER NP 08/05/16 Potassium Chloride (Klor-Con M10) 10 Meq Tab.prt.sr, 10 MEQ PO DAILY for 30 Days Prov:NADEGE SPENCER NP 08/05/16 Furosemide (Lasix) 20 Mg Tab, 20 MG PO DAILY for 30 Days, TAB Prov:NADEGE SPENCER NP 08/05/16 Aspirin* (Aspirin* EC) 81 Mg Tablet.dr, 81 MG PO DAILY for 30 Days Prov:NADEGE SPENCER NP 08/05/16 Metoprolol Tartrate* (Lopressor*) 50 Mg Tab, 50 MG PO BID for 30 Days, TAB Prov:NADEGE SPENCER NP 08/05/16 Lisinopril* (Lisinopril*) 5 Mg Tablet, 2.5 MG PO DAILY for 30 Days, TAB Prov:NADEGE SPENCER NP 08/05/16 Atorvastatin* (Atorvastatin*) 80 Mg Tablet, 80 MG PO HS for 30 Days, TAB Prov:NADEGE SPENCER NP 08/05/16 Amiodarone Hcl* (Amiodarone Hcl*) 200 Mg Tablet, 200 MG PO DAILY for 30 Days, TAB Prov:NADEGE SPENCER NP 08/05/16 Discontinued Scripts Levofloxacin* (Levaquin*) 750 Mg Tablet, 750 MG PO DAILY for 7 Days, TAB Prov:NADEGE SPENCER NP 08/05/16 [Hydrocodone/Apap (10)] 1 TAB TAB No Conflict Check, 1 TAB PO Q4H Y for PAIN , #30 Prov:NADEGE SPENCER NP 08/05/16 NATALEE STOREY MD Aug 23, 2016 11:41
== END 2016-08-23 16:24 | disposition home or self-care (01) ==
LOC: DCC 11:16
PROVIDERS: ATTEND Internal Medicine
DX: I25.10 Atherosclerotic heart disease of native coronary artery without angina pectoris (principal); I10 Essential (primary) hypertension; E78.5 Hyperlipidemia, unspecified; E11.9 Type 2 diabetes mellitus without complications
CPT/HCPCS: G0463

== ENCOUNTER 2016-12-21 13:19 | Emergency (ER) | payer MEDICAID, OTHER ==
[~2016-12-21] VITALS: Wt 112.0 kg
[~2016-12-21 13:19] MED LIST changes: -Hydrocodone/Apap (10/325) PO; -LEVO750T25 PO
[2016-12-21] MEDS ORDERED: GABA300C16 PO (15:09)
[2016-12-21] MEDS ORDERED: INSU100C SQ (15:10)
[2016-12-21] MEDS ORDERED: ASPIRIN 325 MG TAB PO ONE (15:30)
[2016-12-21] MEDS ORDERED: NITROGLYCERIN 2% 1 GM OINT PKT TD ONE (15:30)
--- NOTE | 2016-12-21 15:32 | RADRPT ---
PROCEDURE: Chest Radiograph. CLINICAL INDICATION: Chest pain TECHNIQUE: Single frontal chest radiograph. COMPARISON: Chest radiograph 08/01/2016 FINDINGS: Patient is status post sternotomy.. Heart size is poorly evaluated. The right lung is grossly eduardo r there is patchy opacification of the left lung base suggesting infiltrate and possible effusion. The bones are intact. IMPRESSION: 1. Patchy air space disease in the left lung base suggesting infiltrate and possible effusion. RPTAT: KK .Osorio Lubin MD, Date Time Electronically viewed and signed by .Osorio Lubin MD, MD on 12/21/2016 15:31 .B/
[2016-12-21 15:43] LABS: BASOPHIL # 0.1 10^3/ul (0.0-0.1); BASOPHILS % 0.5 % (0.0-2.0); EOSINOPHILS # 0.1 10^3/ul (0.0-0.5); EOSINOPHILS % 1.2 % (0.0-7.0); HEMATOCRIT 43.3 % (42.0-52.0); HEMOGLOBIN 14.6 g/dl (14.0-18.0); LYMPHOCYTES # 3.5 10^3/ul (0.8-2.9); MEAN CORPUSCULAR HGB CONC 33.7 g/dl (32.0-37.0); MEAN CORPUSCULAR VOLUME 88.9 fl (82.0-101.0); MEAN PLATELET VOLUME 8.9 fl (7.4-10.4); MONOCYTE # 0.6 10^3/ul (0.3-0.9); MONOCYTES % 5.8 % (0.0-11.0); NEUTROPHILS % 57.1 % (39.0-77.0); PLATELET COUNT 262 10^3/UL (140-415); RED BLOOD COUNT 4.87 10^6/ul (4.70-6.10); RED CELL DISTRIBUTION WIDTH 15.2 % (11.5-14.5)
[2016-12-21 16:09] LABS: ANION GAP 16 (8-16); BLOOD UREA NITROGEN 10 mg/dl (7-20); CALCIUM 9.2 mg/dl (8.4-10.2); CARBON DIOXIDE 27 mmol/L (21-31); CHLORIDE 102 mmol/L (97-110); CREATININE 0.76 mg/dl (0.61-1.24); GLUCOSE 107 mg/dl (70-220); POTASSIUM 3.9 mmol/L (3.5-5.1); SODIUM 141 mmol/L (135-144)
[2016-12-21 16:20] LABS: TROPONIN-I < 0.012 ng/ml (0.00-0.12)
--- NOTE | 2016-12-21 18:52 | ERA ---
ER Documentation Chief Complaint Date/Time DATE: 12/21/16 Chief Complaint cp since yest, hx cabg 4 mo ago HPI The patient is a 51-year-old male, presenting to the ER because of substernal chest pain intermittently for 1 day, had similar symptoms previously, complains of associated dyspnea, 08/08, nonradiating. He denies fever, cough, neck pain, palpitation, diaphoresis, abdominal pain, vomiting, dysuria. He does not smoke nor drink Past medical history: CAD, diabetes mellitus, hypertension, dyslipidemia, history of paroxysmal atrial fibrillation Past surgical history: CABG June 2016 ROS All systems reviewed and are negative except as per history of present illness. Medications Home Meds Active Scripts Metformin* (Glucophage*) 500 Mg Tab, 500 MG PO WITH BREAKFAST DINNE, #60 TAB Prov:NADEGE SPENCER NP 08/05/16 Insulin Glargine* (Lantus*) 100 Unit/Ml Soln, 36 UNIT SC DAILY@08 for 30 Days Prov:NADEGE SPENCER NP 08/05/16 Aspirin* (Aspirin* EC) 81 Mg Tablet.dr, 81 MG PO DAILY for 30 Days Prov:NADEGE SPENCER NP 08/05/16 Metoprolol Tartrate* (Lopressor*) 50 Mg Tab, 50 MG PO BID for 30 Days, TAB Prov:NADEGE SPENCER NP 08/05/16 Lisinopril* (Lisinopril*) 5 Mg Tablet, 2.5 MG PO DAILY for 30 Days, TAB Prov:NADEGE SPENCER NP 08/05/16 Atorvastatin* (Atorvastatin*) 80 Mg Tablet, 80 MG PO HS for 30 Days, TAB Prov:NADEGE SPENCER NP 08/05/16 Reported Medications Insulin Lispro (Humalog) 100 Unit/1 Ml Cartridge, 12 UNIT SQ TID 12/21/16 Gabapentin* (Gabapentin*) 300 Mg Capsule, 300 MG PO TID, #90 CAP 12/21/16 Discontinued Scripts Albuterol Sulfate* (Proair HFA*) 8.5 Gm Hfa.aer.ad, 2 PUFF INH Q4H Y for SHORTNESS OF BREATH, #1 INHALER Prov:NADEGE SPENCER NP 08/05/16 Insulin Aspart* (Novolog Insulin Pen*) 100 Unit/Ml Soln, 12 UNIT SC WITH MEALS for 30 Days Prov:NADEGE SPENCER NP 08/05/16 Sennosides* (Senna Lax*) 8.6 Mg Tablet, 2 TAB PO BID for 30 Days, TAB Prov:NADEGE SPENCER [employer]ATOR 08/05/16 Potassium Chloride (Klor-Con M10) 10 Meq Tab.prt.sr, 10 MEQ PO DAILY for 30 Days Prov:NADEGE SPENCER [employer]ACH[employer]PERATOR 08/05/16 Furosemide (Lasix) 20 Mg Tab, 20 MG PO DAILY for 30 Days, TAB Prov:NADEGE SPENCER [employer]ACH[employer] OPERATOR 08/05/16 Amiodarone Hcl* (Amiodarone Hcl*) 200 Mg Tablet, 200 MG PO DAILY for 30 Days, TAB Prov:NADEGE SPENCER [employer] MACHINE OPERATOR 08/05/16 Allergies Allergies: Coded Allergies: No Known Allergy (Unverified , 07/27/16) PMhx/Soc History of Surgery: No (BYPASS) Anesthesia Reaction: No Hx Neurological Disorder: No Hx Respiratory Disorders: No Hx Cardiac Disorders: Yes (HTN new ) Hx Psychiatric Problems: No Hx Miscellaneous Medical Probl: Yes Hx Alcohol Use: Yes Hx Substance Use: No Hx Tobacco Use: No Smoking Status: Unknown if ever smoked Physical Exam Vitals Vital Signs Date Time Temp Pulse Resp B/P Pulse Ox O2 Delivery O2 Flow Rate FiO2 12/21/16 15:34 Nasal Cannula 2 12/21/16 13:24 97.8 90 20 148/93 97 Physical Exam Const: No acute distress. Head: Atraumatic. Eyes: Normal Conjunctiva. ENT: Normal External Ears, Nose and Mouth. Neck: Full range of motion. No meningismus. Resp: Clear to auscultation bilaterally. Cardio: Regular rate and rhythm. Abd: Soft, non distended, normal bowel sounds, non tender. Skin: No petechiae or rashes. Back: No midline or flank tenderness. Ext: No cyanosis, or edema. Neur: Awake and alert. No focal deficit Psych: Normal Mood and Affect. Result Diagram: 12/21/16 1530 12/21/16 1530 Results 24 hrs Laboratory Tests Test 12/21/16 15:30 White Blood Count 10.010^3/ul Red Blood Count 4.8710^6/ul Hemoglobin 14.6g/dl Hematocrit 43.3% Mean Corpuscular Volume 88.9fl Mean Corpuscular Hemoglobin 30.0pg Mean Corpuscular Hemoglobin Concent 33.7g/dl Red Cell Distribution Width 15.2% Platelet Count 31649^3/UL Mean Platelet Volume 8.9fl Neutrophils % 57.1% Lymphocytes % 35.0% Monocytes % 5.8% Eosinophils % 1.2% Basophils % 0.5% Nucleated Red Blood Cells % 0.0/100WBC Neutrophils # (Manual) 610^3/ul Lymphocytes # 3.510^3/ul Monocytes # 0.610^3/ul Eosinophils # 0.110^3/ul Basophils # 0.110^3/ul Nucleated Red Blood Cells # 0.010^3/ul Sodium Level 141mmol/L Potassium Level 3.9mmol/L Chloride Level 102mmol/L Carbon Dioxide Level 27mmol/L Anion Gap 16 Blood Urea Nitrogen 10mg/dl Creatinine 0.76mg/dl Glucose Level 107mg/dl Calcium Level 9.2mg/dl Troponin I < 0.012ng/ml Current Medications Medications (Trade) Dose Ordered Sig/Margie Route PRN Reason Start Time Stop Time Status Last Admin Dose Admin Aspirin (Aspirin) 325 mg ONCE ONCE PO 12/21/16 15:30 12/21/16 15:31 DC 12/21/16 15:28 Nitroglycerin (Nitroglycerin 2% Oint) 1 inch ONCE ONCE TD 12/21/16 15:30 12/21/16 15:31 DC 12/21/16 15:28 Procedures/MDM EKG: Read by emergency physician Rate/Rhythm: Normal Sinus Rhythm 90 beats/min QRS, ST, T-waves: No ST elevation, no T inversion, inferior Q waves Impression: Abnormal EKG [place] [id number] Radiology Main Line: [phone] DIAGNOSTIC IMAGING REPORT Patient: FREDDY ROMERO : 1965 Age: 51 Sex: M MR #: [id number] DOS: 12/21/16 1456 Ordering MD: BEVERLY COREAS MD Location: E/R Room/Bed: PROCEDURE: Chest Radiograph. CLINICAL INDICATION: Chest pain TECHNIQUE: Single frontal chest radiograph. COMPARISON: Chest radiograph 08/01/2016 FINDINGS: Patient is status post sternotomy.. Heart size is poorly evaluated. The right lung is grossly clear there is patchy opacification of the left lung base suggesting infiltrate and possible effusion. The bones are intact. IMPRESSION: 1. Patchy air space disease in the left lung base suggesting infiltrate and possible effusion. RPTAT: KK .Osorio Lubin MD, Date Time Electronically viewed and signed by .Osorio Lubin MD, MD on 2016 15:31 .B/ CC: BEVERLY COREAS MD MEDICAL MAKING DECISION: The patient is a 51-year-old male, presenting with acute chest pain that is concerning for ACS. He was treated with aspirin 325 mg p.o., 1 inch of nitroglycerin to the anterior chest wall with good response The differential diagnoses considered include but are not limited to acute coronary syndrome, acute myocardial infarction, pericarditis, pulmonary embolism , aortic dissection, pneumonia, pleural effusion, pneumothorax, GERD, chest wall pain. Departure Diagnosis: Primary Impression: Chest pain Condition: Stable Comments I discussed the findings with the patient. I discussed the patient with his physician Dr. Decker who was made aware of the lab, the treatment, the patient condition. The patient is admitted to telemetry BEVERLY COREAS MD Dec 21, 2016 18:51
== END 2016-12-21 20:49 | disposition left against medical advice (07) ==
LOC: E/R 13:19
DX: R07.2 Precordial pain (principal); I10 Essential (primary) hypertension; I25.10 Atherosclerotic heart disease of native coronary artery without angina pectoris; E11.9 Type 2 diabetes mellitus without complications; Z79.4 Long term (current) use of insulin; Z79.82 Long term (current) use of aspirin; Z98.61 Coronary angioplasty status
CPT/HCPCS: 36415; 71010; 80048; 84484; 85025; 93005; Z7502; Z7610